=== PATIENT | female | born 1955 | race Caucasian/White ===

== ENCOUNTER 2018-03-09 15:45 | Outpatient (RCR) | payer OTHER, SELFPAY ==
[2018-02-16 13:09] VITALS: BP 148/66; PULSE 91; RESP 16; TEMP 36.4; BMI 35.4
[2018-02-16 15:51] LABS: Absolute Lymphocyte Count 2.62 X10^3/ul (0.83-4.51); Absolute Neutrophil Count 4.6 X10^3/uL (2.0-7.7); Basophil# 0.04 X10^3/uL; Basophil% 0.5 % (0-1); Eosinophils% 3.5 % (0-5); Hematocrit 42.4 % (37-47); Hemoglobin 13.9 g/dl (12.0-15.0); Lymphocyte # 2.62 X10^3/ul (4.0); Lymphocyte % 30.7 % (19-41); Mean Corp Hgb Conc 32.8 g/gl (32-36); Mean Corpuscular Volume 94.4 fL (81-99); Mean Platelet Vol. 12.3 fl (6.2-12.0); Monocyte# 0.97 X10^3/uL; Monocyte% 11.4 % (0-10); Neutrophil % 53.8 % (47-70); Platelet Count 187 K/mm3 (150-450); RBC Distribution Width CV 12.9 % (11.6-14.6); RBC Distribution Width SD 44.4 fl (35.1-43.9); Red Blood Count 4.49 M/mm3 (4.2-5.4); White Blood Count 8.5 K/mm3 (4.4-11.0)
[2018-02-16 15:52] LABS: POSITIVE COUNT NO; POSITIVE DIFFERENTIAL NO; POSITIVE MORPHOLOGY NO
[2018-02-16 16:00] LABS: Erythrocyte Sedimentation Rate 28 mm/hr (0-30)
[2018-02-16 16:11] LABS: AST(SGOT) 44 U/L (15-37); Alanine Aminotransfer ALT/SGPT 41 U/L (13-56); Albumin, Serum 3.9 g/dL (3.2-5.0); Alkaline Phosphatase 115 U/L (45-117); Anion Gap 8 (5-15); BUN 16 mg/dL (7-18); BUN/Creat Ratio 20.6 RATIO (10-20); Chloride 106 mmol/L (98-107); Creatinine, Serum 0.78 mg/dL (0.55-1.02); EST Glomerular Filtration Rate 79 mL/min (>60); Est Glom Filt Rate - Afr Amer 96 mL/min (>60); Estimated Creatinine Clearance 60.27 ml/min; Globulin 3.9 g/dL (2.2-4.2); Glucose 82 mg/dL (74-106); Potassium 4.2 mmol/L (3.5-5.1); Prealbumin 21.2 mg/dL (20.0-40.0); Protein, Total 7.8 g/dL (6.4-8.2); Sodium Level 144 mmol/L (136-145)
--- NOTE | 2018-02-16 17:17 | PCM.WC.HP ---
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 Status: Acute Current Visit: Yes Code(s): L97.922 - Non-pressure chronic ulcer of unspecified part of left lower leg with fat layer exposed Comment: x 3 (2) Decreased dorsalis pedis pulse Status: Acute Current Visit: Yes Code(s): R09.89 - Other specified symptoms and signs involving the circulatory and respiratory systems (3) Bilateral lower extremity edema Status: Acute Current Visit: Yes Code(s): R60.0 - Localized edema (4) Hypertension Status: Chronic Current Visit: Yes Code(s): I10 - Essential (primary) hypertension (5) Depression Status: Acute Current Visit: Yes Code(s): F32.9 - Major depressive disorder, single episode, unspecified (6) Hyperlipidemia Status: Acute Current Visit: Yes Code(s): E78.5 - Hyperlipidemia, unspecified History of Present Illness Date of Service: 02/16/18 Chief Complaint: Nonhealing ulcers to the left lower extremity times 3 months History of Wound: This is a 62-year-old white female who presents to the wound healing center today with complaints of 3 lower extremity ulcers times 3 months. She states that these ulcerations occurred when she hit her left lower extremity on a laundry cart 3 months ago. She states that she typically wears compression stockings and that for wound care she has been using Aquacel extra that she ordered online. She denies any signs of infection at this time, though she does state that the ulcerations are tender and draining serosanguineous fluid. She denies any fever, chills, nausea, vomiting, shortness of breath, chest pain or pressure, syncope or presyncopal episodes. She denies any other aggravating or relieving factors. She has been seen in 2013 here for nonhealing wounds of the lower extremity as well. Past Medical History Past Medical History: Chronic Problems Hypertension (Chronic) Smoking Status: Never smoker Review of Systems Constitutional: Denies: Chills, Fever, Weight Change Eyes: Denies: Pain, Vision Change HEENT: Denies: Difficulty Hearing, Difficulty Swallowing, Sinus Congestion Cardiovascular: Denies: Chest Pain, Palpitations Respiratory: Denies: Cough, Shortness of Breath Gastrointestinal: Denies: Diarrhea, Nausea, Vomiting Genitourinary: Denies: Dysuria, Hematuria Skin: Reports: Wounds - See HPI Endocrine: Denies: Heat/ Cold Intolerance, Polydipsia, Polyuria Hematologic/ Lymphatic: Denies: Easy Bruising, Easy Bleeding - Physical Exam Vital Signs Temp Pulse Resp BP 97.5 F L 91 16 148/66 H 02/16/18 13:09 02/16/18 13:09 02/16/18 13:09 02/16/18 13:09 General: Alert, Oriented x3, Cooperative, No apparent distress HEENT: PERRLA, EOMI Oral: Moist Mucosa Lungs: Clear to auscultation, Normal air movement Cardiovascular: Regular rate, Regular Rhythm Abdomen: Soft, Obese Extremities: No clubbing, No cyanosis, Diminished Peripheral Pulses - Diminished dorsal pedis pulses bilaterally, Edema - Generalized 1+ nonpitting edema bilateral lower extremities Skin: Ulcer/ Wound - Nonhealing ulcers present left lower extremity anterior, posterior, and lateral with adherent slough present, slightly erythematous wound edges, no streaking or purulent exudate. Negative Homans sign bilaterally. Wound Measurements and Assessment WC - Nurse 1 - General Ulcer Measurement Start: 02/16/18 13:09 Freq: Status: Active Protocol: Activity Type Activity Date Activity User E-Sign Co-Sign Detail Recorded Client Recorded Date Recorded By Document 02/16/18 13:09 [id number] 02/16/18 13:26 02/16/18 13:09 Wound Center Nurse 1 [Ulcer Assessment] #3 left anterior jain -Combined with other wound No -Current Size (cm) - Length 1.5 -Current Size (cm) - Width 1.9 -Current Size (cm) - Depth 0.1 -Total Square Cm 2.85 -Date of Last Picture (Recall this 02/16/18 field) -Photo Taken Yes -Epithelialization None Present -Tunneling No -Undermining/Tunneling No -Circular Undermining No -Exudate Amt Medium (34-66%) -Exudate Type Serosanguineous -Wound Margin Distinct, Outline Attached -Granulation Amt Medium (34-66%) -Granulation Quality Pale Red -Slough/Fibrin Yes -Necrosis Amt None Present (0 %) -Necrotic Tissue Type Adherent Slough -Structure Exposed None/Limited to Skin Breakdown -Texture (Patricia-wound Skin Appearance) No Abnormality Assessed -Moisture (Patricia-wound Skin Appearance No Abnormality ) Assessed -Color (Patricia-wound Skin Appearance) No Abnormality Assessed -Temperature (Patricia-wound Skin No Abnormality Appearance) (Pt Warm) -Tenderness on Palpation (Patricia-wound No Skin Appearance) -Ulcer Cleansing Rinsed/ Irrigated with Saline -Foul Odor after Cleansing No -Anesthetic Used 4% Lidocaine Solution #2 left posterior le -Combined with other wound No -Current Size (cm) - Length 1 -Current Size (cm) - Width 1.2 -Current Size (cm) - Depth 0.3 -Total Square Cm 1.2 -Date of Last Picture (Recall this 02/16/18 field) -Photo Taken Yes -Epithelialization None Present -Tunneling No -Undermining/Tunneling No -Circular Undermining No -Exudate Amt Medium (34-66%) -Exudate Type Serosanguineous -Wound Margin Distinct, Outline Attached -Granulation Amt Medium (34-66%) -Granulation Quality Pale -Slough/Fibrin Yes -Necrosis Amt None Present (0 %) -Necrotic Tissue Type Adherent Slough -Structure Exposed None/Limited to Skin Breakdown -Texture (Patricia-wound Skin Appearance) No Abnormality Assessed -Moisture (Patricia-wound Skin Appearance No Abnormality ) Assessed -Color (Patricia-wound Skin Appearance) No Abnormality Assessed -Temperature (Patricia-wound Skin No Abnormality Appearance) (Pt Warm) -Tenderness on Palpation (Patricia-wound Yes Skin Appearance) -Ulcer Cleansing Rinsed/ Irrigated with Saline -Foul Odor after Cleansing No -Anesthetic Used 4% Lidocaine Solution #1 left lateralle -Combined with other wound No -Current Size (cm) - Length 1.9 -Current Size (cm) - Width 1.3 -Current Size (cm) - Depth 0.1 -Total Square Cm 2.47 -Date of Last Picture (Recall this 02/16/18 field) -Photo Taken Yes -Epithelialization None Present -Tunneling No -Undermining/Tunneling No -Circular Undermining No -Exudate Amt Medium (34-66%) -Exudate Type Serosanguineous -Wound Margin Fibrotic Scar, Thickened Scar -Granulation Amt Medium (34-66%) -Granulation Quality Pale -Slough/Fibrin Yes -Necrosis Amt Medium (34-66%) -Necrotic Tissue Type Adherent Slough -Structure Exposed None/Limited to Skin Breakdown -Texture (Patricia-wound Skin Appearance) No Abnormality Assessed -Moisture (Aptricia-wound Skin Appearance No Abnormality ) Assessed -Color (Patricia-wound Skin Appearance) No Abnormality Assessed -Temperature (Patricia-wound Skin No Abnormality Appearance) (Pt Warm) -Tenderness on Palpation (Patricia-wound Yes Skin Appearance) -Ulcer Cleansing Rinsed/ Irrigated with Saline -Foul Odor after Cleansing No -Anesthetic Used 4% Lidocaine Solution [Edema Assessment] -Lower Limb Edema Present Yes -Right Calf (cm) 42 -Right Ankle (cm) 21.5 -Left Calf (cm) 43 -Left Ankle (cm) 26.5 WC - Nurse 2 - General Ulcer CM Notes Start: 02/16/18 13:09 Freq: Status: Active Protocol: Activity Type Activity Date Activity User E-Sign Co-Sign Detail Recorded Client Recorded Date Recorded By Document 02/16/18 14:12 [id number] 02/16/18 14:18 02/16/18 14:12 Wound Center Nurse 2 [Procedure/Treatment] #3 left anterior jain -Time 14:12 -Correct Patient Yes -Correct Side, Site, Position Yes -Correct Procedure Yes -Procedure Performed Yes -Type of Procedure Debridement -Clinical Debridement Subcutaneous -Post Debridement Size (cm) - Length 2.3 -Post Debridement Size (cm) - Width 1.9 -Post Debridement Size (cm) - Depth 0.1 -Total Square Cm 4.37 -Wound/Ulcer Outcome Not Healed -Ulcer Cleansing Rinsed/ Irrigated with Saline -Foul Odor after Cleansing No -Bioengineered Tissue No -Topical Lidocaine (%) 5 -Bleeding Controlled with Pressure -Treatment Response Procedure Tolerated Well #2 left posterior le -Time 14:13 -Correct Patient Yes -Correct Side, Site, Position Yes -Correct Procedure Yes -Procedure Performed Yes -Type of Procedure Debridement -Clinical Debridement Subcutaneous -Post Debridement Size (cm) - Length 1.2 -Post Debridement Size (cm) - Width 1.2 -Post Debridement Size (cm) - Depth 0.4 -Total Square Cm 1.44 -Wound/Ulcer Outcome Not Healed -Ulcer Cleansing Rinsed/ Irrigated with Saline -Foul Odor after Cleansing No -Bioengineered Tissue No -Topical Lidocaine (%) 5 -Bleeding Controlled with Pressure -Treatment Response Procedure Tolerated Well #1 left lateralle -Time 14:13 -Correct Patient Yes -Correct Side, Site, Position Yes -Correct Procedure Yes -Procedure Performed Yes -Type of Procedure Debridement -Clinical Debridement Subcutaneous -Post Debridement Size (cm) - Length 2.3 -Post Debridement Size (cm) - Width 1.9 -Post Debridement Size (cm) - Depth 0.1 -Total Square Cm 4.37 -Wound/Ulcer Outcome Not Healed -Ulcer Cleansing Rinsed/ Irrigated with Saline -Foul Odor after Cleansing No -Bioengineered Tissue No -Topical Lidocaine (%) 5 -Bleeding Controlled with Pressure -Treatment Response Procedure Tolerated Well [See Physician Procedure note for Specifics] Pain Scale: 0-10 Numeric [Pain] -Is Patient Pain Free? Yes Musculoskeletal: No Muscle Wasting Neurological: Neuro grossly intact Psych/Mental Status: Normal Affect, Appropriate, Alert and oriented to time, place, person, mood and affect Debridement Note Post-Debridement Measurements/Treatment WC - Nurse 2 - General Ulcer CM Notes Start: 02/16/18 13:09 Freq: Status: Active Protocol: Activity Type Activity Date Activity User E-Sign Co-Sign Detail Recorded Client Recorded Date Recorded By Document 02/16/18 14:12 [id number] 02/16/18 14:18 02/16/18 14:12 Wound Center Nurse 2 #3 left anterior jain -Time 14:12 -Correct Patient Yes -Correct Side, Site, Position Yes -Correct Procedure Yes -Procedure Performed Yes -Type of Procedure Debridement -Clinical Debridement Subcutaneous -Post Debridement Size (cm) - Length 2.3 -Post Debridement Size (cm) - Width 1.9 -Post Debridement Size (cm) - Depth 0.1 -Total Square Cm 4.37 -Wound/Ulcer Outcome Not Healed -Ulcer Cleansing Rinsed/ Irrigated with Saline -Foul Odor after Cleansing No -Bioengineered Tissue No -Topical Lidocaine (%) 5 -Bleeding Controlled with Pressure -Treatment Response Procedure Tolerated Well #2 left posterior le -Time 14:13 -Correct Patient Yes -Correct Side, Site, Position Yes -Correct Procedure Yes -Procedure Performed Yes -Type of Procedure Debridement -Clinical Debridement Subcutaneous -Post Debridement Size (cm) - Length 1.2 -Post Debridement Size (cm) - Width 1.2 -Post Debridement Size (cm) - Depth 0.4 -Total Square Cm 1.44 -Wound/Ulcer Outcome Not Healed -Ulcer Cleansing Rinsed/ Irrigated with Saline -Foul Odor after Cleansing No -Bioengineered Tissue No -Topical Lidocaine (%) 5 -Bleeding Controlled with Pressure -Treatment Response Procedure Tolerated Well #1 left lateralle -Time 14:13 -Correct Patient Yes -Correct Side, Site, Position Yes -Correct Procedure Yes -Procedure Performed Yes -Type of Procedure Debridement -Clinical Debridement Subcutaneous -Post Debridement Size (cm) - Length 2.3 -Post Debridement Size (cm) - Width 1.9 -Post Debridement Size (cm) - Depth 0.1 -Total Square Cm 4.37 -Wound/Ulcer Outcome Not Healed -Ulcer Cleansing Rinsed/ Irrigated with Saline -Foul Odor after Cleansing No -Bioengineered Tissue No -Topical Lidocaine (%) 5 -Bleeding Controlled with Pressure -Treatment Response Procedure Tolerated Well Pain Scale: 0-10 Numeric Is Patient Pain Free? Yes Wound debrided: Left lower extremity nonhealing ulcer anterior, posterior, and lateral Laterality: Left Type of Debridement: Excisional debridement Anesthesia Used: 5% Lidocaine Gel Depth: in the subcutaneous layer Percentage of wound debrided: 100 Instrument Used: 7mm curette Tissue Removed: Slough and devitalized tissue Severity: Fat Layer Exposed Amount of bleeding with debridement: Mild Bleeding Controlled with: Pressure Patient did not tolerate procedure well Assessment/Plan Active Problems Decreased dorsalis pedis pulse (Acute) Bilateral lower extremity edema (Acute) Hypertension (Chronic) Depression (Acute) Hyperlipidemia (Acute) Nonhealing ulcer of left lower extremity with fat layer exposed (Acute) x 3 Assessment: Nonhealing ulcers to the left lower extremity, posterior, anterior, and lateral Plan: The patient was seen and examined at the wound center today and was updated on the plan of care. A subcutaneous debridement was performed today. The patient tolerated the procedure poorly due to pain. The patients wound care will consist of: Applying Santyl to the lateral and posterior left lower extremity ulcers and applying Elizabet to the anterior lower extremity left ulcer, she may continue with her compression stockings. Wound cultures were collected. Baseline bloodwork ordered. Vascular studies ordered. Patient educated on the importance of diet on wound healing and instructed to increase protein and vitamin C intake. Patient instructed to take Tylenol prior to her next debridement. Discussed red flag symptoms of cellulitis and infection that require urgent medical attention. Patient verbalized understanding. Patient will follow up at wound healing center in one week or sooner if needed. This note was generated with [employer] software. It may contain incorrect words, spelling, and punctuation that were not noted in checking the note before signing. Code Visit Office Visits / Consults: [id number] OV L4 New [id number]: [id number] Zena subq tissue 20 sq cm/<
[2018-02-23 15:52] VITALS: BP 146/89; PULSE 99; RESP 16; TEMP 36.9; BMI 35.4
--- NOTE | 2018-02-27 08:51 | PN.PCM_ITS ---
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 Status: Acute Code(s): L97.922 - Non-pressure chronic ulcer of unspecified part of left lower leg with fat layer exposed Comment: x 3 (2) Decreased dorsalis pedis pulse Status: Acute Code(s): R09.89 - Other specified symptoms and signs involving the circulatory and respiratory systems (3) Bilateral lower extremity edema Status: Acute Code(s): R60.0 - Localized edema (4) Hypertension Status: Chronic Code(s): I10 - Essential (primary) hypertension (5) Depression Status: Acute Code(s): F32.9 - Major depressive disorder, single episode, unspecified (6) Hyperlipidemia Status: Acute Code(s): E78.5 - Hyperlipidemia, unspecified Type of Wound Date of Service: 02/23/18 Chief Complaint: Nonhealing ulcers to the left lower extremity times 3 months History of Wound: This is a 62-year-old white female who presents to the wound healing center today with complaints of 3 lower extremity ulcers times 3 months. She states that these ulcerations occurred when she hit her left lower extremity on a laundry cart 3 months ago. She states that she typically wears compression stockings and that for wound care she has been using Aquacel extra that she ordered online. She denies any signs of infection at this time, though she does state that the ulcerations are tender and draining serosanguineous fluid. She denies any fever, chills, nausea, vomiting, shortness of breath, chest pain or pressure, syncope or presyncopal episodes. She denies any other aggravating or relieving factors. She has been seen in 2013 here for nonhealing wounds of the lower extremity as well. Progress of Wound: Stable, patient's wound culture showed MRSA and patient was called in a 10-day course of doxycycline earlier this week. She has taken one full day of this and is tolerating well. She does state that some of her ulceration pain has improved since starting the antibiotic denies any purulent drainage has been utilizing the Santyl and Elizabet well. - Physical Exam Vital Signs Temp Pulse Resp BP 98.4 F 99 16 146/89 H 02/23/18 15:52 02/23/18 15:52 02/23/18 15:52 02/23/18 15:52 General: Alert, Oriented x3, Cooperative, No apparent distress HEENT: Atraumatic Oral: Moist Mucosa Lungs: Clear to auscultation Cardiovascular: Regular rate Abdomen: Obese Extremities: No clubbing, No cyanosis, Diminished Peripheral Pulses, Edema - Generalized bilateral lower extremity edema Skin: Ulcer/ Wound - Left lower extremity anterior posterior and lateral ulcer with adherent slough and devitalized tissue no signs of infection at this time, slightly erythematous wound edges. Musculoskeletal: No Tenderness to Palpation of Joints or Extremities, No Muscle Wasting Neurological: Neuro grossly intact Psych/Mental Status: Normal Affect, Appropriate, Alert and oriented to time, place, person, mood and affect Debridement Note Post-Debridement Measurements/Treatment WC - Nurse 2 - General Ulcer CM Notes Start: 02/16/18 13:09 Freq: Status: Active Protocol: Activity Type Activity Date Activity User E-Sign Co-Sign Detail Recorded Client Recorded Date Recorded By Document 02/16/18 14:12 TM [id number] 02/16/18 14:18 TM Document 02/23/18 17:17 TM [id number] 02/23/18 17:19 TM 02/16/18 02/23/18 14:12 17:17 Wound Center Nurse 2 #4 left anterior jain -Time 14:12 17:18 -Correct Patient Yes Yes -Correct Side, Site, Position Yes Yes -Correct Procedure Yes Yes -Procedure Performed Yes Yes -Type of Procedure Debridement Debridement -Clinical Debridement Subcutaneous Subcutaneous -Post Debridement Size (cm) - Length 2.3 2.3 -Post Debridement Size (cm) - Width 1.9 2.0 -Post Debridement Size (cm) - Depth 0.1 0.1 -Total Square Cm 4.37 4.60 -Wound/Ulcer Outcome Not Healed Not Healed -Ulcer Cleansing Rinsed/ Rinsed/ Irrigated with Irrigated with Saline Saline -Foul Odor after Cleansing No No -Bioengineered Tissue No No -Topical Lidocaine (%) 5 4 -Bleeding Controlled with Pressure Pressure -Treatment Response Procedure Procedure Tolerated Well Tolerated Well #3 left posterior leg -Time 14:13 17:18 -Correct Patient Yes Yes -Correct Side, Site, Position Yes Yes -Correct Procedure Yes Yes -Procedure Performed Yes Yes -Type of Procedure Debridement Debridement -Clinical Debridement Subcutaneous Subcutaneous -Post Debridement Size (cm) - Length 1.2 1.2 -Post Debridement Size (cm) - Width 1.2 1.2 -Post Debridement Size (cm) - Depth 0.4 0.5 -Total Square Cm 1.44 1.44 -Wound/Ulcer Outcome Not Healed Not Healed -Ulcer Cleansing Rinsed/ Rinsed/ Irrigated with Irrigated with Saline Saline -Foul Odor after Cleansing No No -Bioengineered Tissue No No -Topical Lidocaine (%) 5 4 -Bleeding Controlled with Pressure Pressure -Treatment Response Procedure Procedure Tolerated Well Tolerated Well #2 left lateral leg -Time 14:13 17:18 -Correct Patient Yes Yes -Correct Side, Site, Position Yes Yes -Correct Procedure Yes Yes -Procedure Performed Yes Yes -Type of Procedure Debridement Debridement -Clinical Debridement Subcutaneous Subcutaneous -Post Debridement Size (cm) - Length 2.3 1.8 -Post Debridement Size (cm) - Width 1.9 2.3 -Post Debridement Size (cm) - Depth 0.1 0.2 -Total Square Cm 4.37 4.14 -Wound/Ulcer Outcome Not Healed Not Healed -Ulcer Cleansing Rinsed/ Rinsed/ Irrigated with Irrigated with Saline Saline -Foul Odor after Cleansing No No -Bioengineered Tissue No No -Topical Lidocaine (%) 5 4 -Bleeding Controlled with Pressure Pressure -Treatment Response Procedure Procedure Tolerated Well Tolerated Well Pain Scale: 0-10 Numeric Is Patient Pain Free? Yes Yes Wound debrided: Left anterior posterior and lateral ulcer Laterality: Left Type of Debridement: Excisional debridement Anesthesia Used: 5% Lidocaine Gel Depth: in the subcutaneous layer Percentage of wound debrided: 100 Instrument Used: 5mm curette Tissue Removed: Slough and devitalized tissue Severity: Fat Layer Exposed Amount of bleeding with debridement: Mild Bleeding Controlled with: Pressure Patient tolerated procedure well Assessment/Plan Assessment: Nonhealing ulcers to the left lower extremity, posterior, anterior, and lateral Plan: The patient was seen and examined at the wound center today and was updated on the plan of care. A subcutaneous debridement was performed today. The patient tolerated the procedure well. The patients wound care will consist of: Applying Santyl to the lateral and posterior left lower extremity ulcers and applying Elizabet to the anterior lower extremity left ulcer, she may continue with her compression stockings. Wound cultures were collected prior and showed MRSA and started on a course of doxy. Baseline bloodwork essentially within normal limits. Vascular studies pending. Patient educated on the importance of diet on wound healing and instructed to increase protein and vitamin C intake. Patient instructed to take Tylenol prior to her next debridement. Discussed red flag symptoms of cellulitis and infection that require urgent medical attention. Patient verbalized understanding. Patient will follow up at wound healing center in one week or sooner if needed. This note was generated with [employer] dictation software. It may contain incorrect words, spelling, and punctuation that were not noted in checking the note before signing. Code Visit [id number]-113xx: [id number] Zena subq tissue 20 sq cm/<
--- NOTE | 2018-03-09 14:02 | LEAS ---
Arterial Study - Arterial Study Arterial Study: This is a 62-year-old female who presents with a history of peripheral arterial occlusive disease. The patient is brought to the noninvasive vascular laboratory at this time for the purpose of bilateral noninvasive lower extremity arterial assessment. Doppler signal assessment was used to evaluate the pulses at ankle level bilaterally. The posterior tibial and dorsalis pedis pulses were triphasic bilaterally. Segmental limb pressures were obtained bilaterally. The right ankle pressure, as determined by posterior tibial pulse, was measured at 176 mmHg. The right ankle pressure, as determined by dorsalis pedis pulse, was measured at 159 mmHg. The right digital pressure was measured at 107 mmHg. The left ankle pressure, as determined by posterior tibial pulse, was measured at 167 mmHg. The left ankle pressure, as determined by dorsalis pedis pulse, was measured at 162 mmHg. The left digital pressure was measured at 100 mmHg. Pulse?volume recordings were obtained bilaterally and segmentally. Waveform amplitudes appeared to be satisfactory at all levels bilaterally, including low thigh, calf, ankle, and digital levels. Resting ankle?brachial indices were calculated bilaterally. The resting right ankle?brachial index was calculated to be 1.21. The resting left ankle?brachial index was calculated to be 1.14. Digital?brachial indices were calculated bilaterally. The right digital-brachial index was calculated to be 0.73. The left digital-brachial index was calculated to be 0.68. Impression: Based upon the findings of this resting noninvasive lower extremity arterial study, arterial perfusion to ankle level appears to be normal bilaterally. Triphasic waveforms were noted at ankle level bilaterally. Resting ankle?brachial indices were bilaterally normal. The right digital-brachial index is normal, suggesting relatively normal flow at digital level in the right lower extremity. The left digital-brachial index is mildly diminished, suggesting the presence of mild, distal, small?vessel arterial occlusive disease in the left lower extremity. Clinical correlation is advised.
--- NOTE | 2018-03-09 14:08 | LEAS_ITS ---
Arterial Study - Arterial Study Arterial Study: This is a 62-year-old female who presents with a history of peripheral arterial occlusive disease. The patient is brought to the noninvasive vascular laboratory at this time for the purpose of bilateral noninvasive lower extremity arterial assessment. Doppler signal assessment was used to evaluate the pulses at ankle level bilaterally. The posterior tibial and dorsalis pedis pulses were triphasic bilaterally. Segmental limb pressures were obtained bilaterally. The right ankle pressure, as determined by posterior tibial pulse, was measured at 176 mmHg. The right ankle pressure, as determined by dorsalis pedis pulse, was measured at 159 mmHg. The right digital pressure was measured at 107 mmHg. The left ankle pressure, as determined by posterior tibial pulse, was measured at 167 mmHg. The left ankle pressure, as determined by dorsalis pedis pulse, was measured at 162 mmHg. The left digital pressure was measured at 100 mmHg. Pulse?volume recordings were obtained bilaterally and segmentally. Waveform amplitudes appeared to be satisfactory at all levels bilaterally, including low thigh, calf, ankle, and digital levels. Resting ankle?brachial indices were calculated bilaterally. The resting right ankle?brachial index was calculated to be 1.21. The resting left ankle?brachial index was calculated to be 1.14. Digital?brachial indices were calculated bilaterally. The right digital- brachial index was calculated to be 0.73. The left digital-brachial index was calculated to be 0.68. Impression: Based upon the findings of this resting noninvasive lower extremity arterial study, arterial perfusion to ankle level appears to be normal bilate rally. Triphasic waveforms were noted at ankle level bilaterally. Resting ankle?brachial indices were bilaterally normal. The right digital-brachial index is normal, suggesting relatively normal flow at digital level in the right lower extremity. The left digital-brachial index is mildly diminished, suggesting the presence of mild, distal, small?vessel arterial occlusive disease in the left lower extremity. Clinical correlation is advised.
[2018-03-09 15:48] VITALS: BP 146/62; PULSE 85; RESP 18; TEMP 36.4; BMI 35.4
--- NOTE | 2018-03-09 19:30 | PCM.WC.PN ---
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 Status: Acute Code(s): L97.922 - Non-pressure chronic ulcer of unspecified part of left lower leg with fat layer exposed Comment: x 3 (2) Decreased dorsalis pedis pulse Status: Acute Code(s): R09.89 - Other specified symptoms and signs involving the circulatory and respiratory systems (3) Bilateral lower extremity edema Status: Acute Code(s): R60.0 - Localized edema (4) Hypertension Status: Chronic Code(s): I10 - Essential (primary) hypertension (5) Depression Status: Acute Code(s): F32.9 - Major depressive disorder, single episode, unspecified (6) Hyperlipidemia Status: Acute Code(s): E78.5 - Hyperlipidemia, unspecified Type of Wound Date of Service: 03/09/18 Chief Complaint: Nonhealing ulcers to the left lower extremity times 3 months History of Wound: This is a 62-year-old white female who presents to the wound healing center today with complaints of 3 left lower extremity ulcers times 3 months. She states that these ulcerations occurred when she hit her left lower extremity on a laundry cart 3 months ago. She states that she typically wears compression stockings and that for wound care she has been using Aquacel extra that she ordered online. She denies any signs of infection at this time, though she does state that the ulcerations are tender and draining serosanguineous fluid. She denies any fever, chills, nausea, vomiting, shortness of breath, chest pain or pressure, syncope or presyncopal episodes. She denies any other aggravating or relieving factors. She has been seen in 2013 here for nonhealing wounds of the lower extremity as well. Progress of Wound: improving, patient's wound culture showed MRSA and patient was called in a 10-day course of doxycycline earlier this week, pt feels like the redness and pain have improved but some residual erythema still present, will call in 4 more days of doxy, which she has tolerated well. She denies any purulent drainage has been utilizing the Santyl and Elizabet well. - Physical Exam Vital Signs Temp Pulse Resp BP 97.6 F L 85 18 146/62 H 03/09/18 15:48 03/09/18 15:48 03/09/18 15:48 03/09/18 15:48 General: Alert, Oriented x3, Cooperative, No apparent distress HEENT: Atraumatic Oral: Moist Mucosa Lungs: Clear to auscultation, Normal air movement Cardiovascular: Regular rate Abdomen: Soft Extremities: No clubbing, No cyanosis, Diminished Peripheral Pulses, Edema - generalized BLLE edema Skin: Ulcer/ Wound - Anterior posterior on the lateral left lower extremity ulcerations with adherent slough, less than 1 cm of erythema extending from the wound bed, serial sanguinous discharge present, moderate. 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 Neurological: Neuro grossly intact Psych/Mental Status: Normal Affect, Appropriate, Alert and oriented to time, place, person, mood and affect Debridement Note Post-Debridement Measurements/Treatment WC - Nurse 2 - General Ulcer CM Notes Start: 02/16/18 13:09 Freq: Status: Active Protocol: Activity Type Activity Date Activity User E-Sign Co-Sign Detail Recorded Client Recorded Date Recorded By Document 02/16/18 14:12 [id number] 02/16/18 14:18 TM Document 02/23/18 17:17 [id number] 02/23/18 17:19 TM Document 03/09/18 16:06 [id number] 03/09/18 16:11 02/16/18 02/23/18 03/09/18 14:12 17:17 16:06 Wound Center Nurse 2 #4 left anterior jain -Time 14:12 17:18 16:07 -Correct Patient Yes Yes Yes -Correct Side, Site, Position Yes Yes Yes -Correct Procedure Yes Yes Yes -Procedure Performed Yes Yes Yes -Type of Procedure Debridement Debridement Debridement -Clinical Debridement Subcutaneous Subcutaneous Subcutaneous -Post Debridement Size (cm) - Length 2.3 2.3 1.9 -Post Debridement Size (cm) - Width 1.9 2.0 1.4 -Post Debridement Size (cm) - Depth 0.1 0.1 0.1 -Total Square Cm 4.37 4.60 2.66 -Wound/Ulcer Outcome Not Healed Not Healed Not Healed -Ulcer Cleansing Rinsed/ Rinsed/ Not Cleansed Irrigated with Irrigated with Saline Saline -Foul Odor after Cleansing No No No -Bioengineered Tissue No No No -Topical Lidocaine (%) 5 4 -Bleeding Controlled with Pressure Pressure Pressure -Offloading No -Treatment Response Procedure Procedure Procedure Tolerated Well Tolerated Well Tolerated Well #3 left posterior leg -Time 14:13 17:18 16:08 -Correct Patient Yes Yes Yes -Correct Side, Site, Position Yes Yes Yes -Correct Procedure Yes Yes Yes -Procedure Performed Yes Yes Yes -Type of Procedure Debridement Debridement Debridement -Clinical Debridement Subcutaneous Subcutaneous Subcutaneous -Post Debridement Size (cm) - Length 1.2 1.2 0.9 -Post Debridement Size (cm) - Width 1.2 1.2 0.8 -Post Debridement Size (cm) - Depth 0.4 0.5 0.3 -Total Square Cm 1.44 1.44 0.72 -Wound/Ulcer Outcome Not Healed Not Healed Not Healed -Ulcer Cleansing Rinsed/ Rinsed/ Not Cleansed Irrigated with Irrigated with Saline Saline -Foul Odor after Cleansing No No No -Bioengineered Tissue No No No -Topical Lidocaine (%) 5 4 -Bleeding Controlled with Pressure Pressure Pressure -Offloading No -Treatment Response Procedure Procedure Procedure Tolerated Well Tolerated Well Tolerated Well #2 left lateral leg -Time 14:13 17:18 16:09 -Correct Patient Yes Yes Yes -Correct Side, Site, Position Yes Yes Yes -Correct Procedure Yes Yes Yes -Procedure Performed Yes Yes Yes -Type of Procedure Debridement Debridement Debridement -Clinical Debridement Subcutaneous Subcutaneous Subcutaneous -Post Debridement Size (cm) - Length 2.3 1.8 1.5 -Post Debridement Size (cm) - Width 1.9 2.3 1.9 -Post Debridement Size (cm) - Depth 0.1 0.2 0.1 -Total Square Cm 4.37 4.14 2.85 -Wound/Ulcer Outcome Not Healed Not Healed Not Healed -Ulcer Cleansing Rinsed/ Rinsed/ Not Cleansed Irrigated with Irrigated with Saline Saline -Foul Odor after Cleansing No No No -Bioengineered Tissue No No No -Topical Lidocaine (%) 5 4 -Bleeding Controlled with Pressure Pressure Pressure -Offloading No -Treatment Response Procedure Procedure Procedure Tolerated Well Tolerated Well Tolerated Well Pain Scale: 0-10 Numeric Is Patient Pain Free? Yes Yes Yes Wound debrided: Left anterior, posterior, and lateral venous leg ulcer Laterality: Left Type of Debridement: Excisional debridement Anesthesia Used: 5% Lidocaine Gel Depth: in the subcutaneous layer Percentage of wound debrided: 100 Instrument Used: 7mm curette Tissue Removed: Slough and devitalized tissue Severity: Fat Layer Exposed Amount of bleeding with debridement: Mild Bleeding Controlled with: Pressure Patient tolerated procedure well Assessment/Plan Assessment: Nonhealing ulcers to the left lower extremity, posterior, anterior, and lateral Plan: The patient was seen and examined at the wound center today and was updated on the plan of care. A subcutaneous debridement was performed today. The patient tolerated the procedure well. The patients wound care will consist of: Applying Elizabet to the lateral and posterior left lower extremity ulcers and applying hydrogel to the anterior lower extremity left ulcer, she may continue with her compression stockings. Wound cultures were collected prior and showed MRSA and started on a course of doxy, 4 additional days added. Baseline bloodwork essentially within normal limits. Vascular studies showed venous incompetence is in the left and right lower extremities and right GERARDO was 1.21 and left GERARDO was 1.14 with left digital brachial index mildly diminished suggesting the presence of mild distal small vessel arterial occlusive disease. Patient referred to vascular Dr. Hadley. Patient educated on the importance of diet on wound healing and instructed to increase protein and vitamin C intake. Patient instructed to take Tylenol prior to her next debridement. Discussed red flag symptoms of cellulitis and infection that require urgent medical attention. Patient verbalized understanding. Patient will follow up at wound healing center in one week or sooner if needed. This note was generated with [employer] dictation software. It may contain incorrect words, spelling, and punctuation that were not noted in checking the note before signing. Code Visit 111xxx-113xx: [id number] Zena subq tissue 20 sq cm/<
--- NOTE | 2018-03-15 13:35 | PN.PCM_ITS ---
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 Status: Acute Code(s): L97.922 - Non-pressure chronic ulcer of unspecified part of left lower leg with fat layer exposed Comment: x 3 (2) Decreased dorsalis pedis pulse Status: Acute Code(s): R09.89 - Other specified symptoms and signs involving the circulatory and respiratory systems (3) Bilateral lower extremity edema Status: Acute Code(s): R60.0 - Localized edema (4) Hypertension Status: Chronic Code(s): I10 - Essential (primary) hypertension (5) Depression Status: Acute Code(s): F32.9 - Major depressive disorder, single episode, unspecified (6) Hyperlipidemia Status: Acute Code(s): E78.5 - Hyperlipidemia, unspecified Type of Wound Date of Service: 03/09/18 Chief Complaint: Nonhealing ulcers to the left lower extremity times 3 months History of Wound: This is a 62-year-old white female who presents to the wound healing center today with complaints of 3 left lower extremity ulcers times 3 months. She states that these ulcerations occurred when she hit her left lower extremity on a laundry cart 3 months ago. She states that she typically wears compression stockings and that for wound care she has been using Aquacel extra that she ordered online. She denies any signs of infection at this time, though she does state that the ulcerations are tender and draining serosanguineous fluid. She denies any fever, chills, nausea, vomiting, shortness of breath, chest pain or pressure, syncope or presyncopal episodes. She denies any other aggravating or relieving factors. She has been seen in 2013 here for nonhealing wounds of the lower extremity as well. Progress of Wound: improving, patient's wound culture showed MRSA and patient was called in a 10-day course of doxycycline earlier this week, pt feels like the redness and pain have improved but some residual erythema still present, will call in 4 more days of doxy, which she has tolerated well. She denies any purulent drainage has been utilizing the Santyl and Elizabet well. - Physical Exam Vital Signs Temp Pulse Resp BP 97.6 F L 85 18 146/62 H 03/09/18 15:48 03/09/18 15:48 03/09/18 15:48 03/09/18 15:48 General: Alert, Oriented x3, Cooperative, No apparent distress HEENT: Atraumatic Oral: Moist Mucosa Lungs: Clear to auscultation, Normal air movement Cardiovascular: Regular rate Abdomen: Soft Extremities: No clubbing, No cyanosis, Diminished Peripheral Pulses, Edema - generalized BLLE edema Skin: Ulcer/ Wound - Anterior posterior on the lateral left lower extremity ulcerations with adherent slough, less than 1 cm of erythema extending from the wound bed, serial sanguinous discharge present, moderate. 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 Neurological: Neuro grossly intact Psych/Mental Status: Normal Affect, Appropriate, Alert and oriented to time, place, person, mood and affect Debridement Note Post-Debridement Measurements/Treatment WC - Nurse 2 - General Ulcer CM Notes Start: 02/16/18 13:09 Freq: Status: Active Protocol: Activity Type Activity Date Activity User E-Sign Co-Sign Detail Recorded Client Recorded Date Recorded By Document 02/16/18 14:12 [id number] 02/16/18 14:18 TM Document 02/23/18 17:17 [id number] 02/23/18 17:19 TM Document 03/09/18 16:06 [id number] 03/09/18 16:11 02/16/18 02/23/18 03/09/18 14:12 17:17 16:06 Wound Center Nurse 2 #4 left anterior jain -Time 14:12 17:18 16:07 -Correct Patient Yes Yes Yes -Correct Side, Site, Position Yes Yes Yes -Correct Procedure Yes Yes Yes -Procedure Performed Yes Yes Yes -Type of Procedure Debridement Debridement Debridement -Clinical Debridement Subcutaneous Subcutaneous Subcutaneous -Post Debridement Size (cm) - Length 2.3 2.3 1.9 -Post Debridement Size (cm) - Width 1.9 2.0 1.4 -Post Debridement Size (cm) - Depth 0.1 0.1 0.1 -Total Square Cm 4.37 4.60 2.66 -Wound/Ulcer Outcome Not Healed Not Healed Not Healed -Ulcer Cleansing Rinsed/ Rinsed/ Not Cleansed Irrigated with Irrigated with Saline Saline -Foul Odor after Cleansing No No No -Bioengineered Tissue No No No -Topical Lidocaine (%) 5 4 -Bleeding Controlled with Pressure Pressure Pressure -Offloading No -Treatment Response Procedure Procedure Procedure Tolerated Well Tolerated Well Tolerated Well #3 left posterior leg -Time 14:13 17:18 16:08 -Correct Patient Yes Yes Yes -Correct Side, Site, Position Yes Yes Yes -Correct Procedure Yes Yes Yes -Procedure Performed Yes Yes Yes -Type of Procedure Debridement Debridement Debridement -Clinical Debridement Subcutaneous Subcutaneous Subcutaneous -Post Debridement Size (cm) - Length 1.2 1.2 0.9 -Post Debridement Size (cm) - Width 1.2 1.2 0.8 -Post Debridement Size (cm) - Depth 0.4 0.5 0.3 -Total Square Cm 1.44 1.44 0.72 -Wound/Ulcer Outcome Not Healed Not Healed Not Healed -Ulcer Cleansing Rinsed/ Rinsed/ Not Cleansed Irrigated with Irrigated with Saline Saline -Foul Odor after Cleansing No No No -Bioengineered Tissue No No No -Topical Lidocaine (%) 5 4 -Bleeding Controlled with Pressure Pressure Pressure -Offloading No -Treatment Response Procedure Procedure Procedure Tolerated Well Tolerated Well Tolerated Well #2 left lateral leg -Time 14:13 17:18 16:09 -Correct Patient Yes Yes Yes -Correct Side, Site, Position Yes Yes Yes -Correct Procedure Yes Yes Yes -Procedure Performed Yes Yes Yes -Type of Procedure Debridement Debridement Debridement -Clinical Debridement Subcutaneous Subcutaneous Subcutaneous -Post Debridement Size (cm) - Length 2.3 1.8 1.5 -Post Debridement Size (cm) - Width 1.9 2.3 1.9 -Post Debridement Size (cm) - Depth 0.1 0.2 0.1 -Total Square Cm 4.37 4.14 2.85 -Wound/Ulcer Outcome Not Healed Not Healed Not Healed -Ulcer Cleansing Rinsed/ Rinsed/ Not Cleansed Irrigated with Irrigated with Saline Saline -Foul Odor after Cleansing No No No -Bioengineered Tissue No No No -Topical Lidocaine (%) 5 4 -Bleeding Controlled with Pressure Pressure Pressure -Offloading No -Treatment Response Procedure Procedure Procedure Tolerated Well Tolerated Well Tolerated Well Pain Scale: 0-10 Numeric Is Patient Pain Free? Yes Yes Yes Wound debrided: Left anterior, posterior, and lateral venous leg ulcer Laterality: Left Type of Debridement: Excisional debridement Anesthesia Used: 5% Lidocaine Gel Depth: in the subcutaneous layer Percentage of wound debrided: 100 Instrument Used: 7mm curette Tissue Removed: Slough and devitalized tissue Severity: Fat Layer Exposed Amount of bleeding with debridement: Mild Bleeding Controlled with: Pressure Patient tolerated procedure well Assessment/Plan Assessment: Nonhealing ulcers to the left lower extremity, posterior, anterior, and lateral Plan: The patient was seen and examined at the wound center today and was updated on the plan of care. A subcutaneous debridement was performed today. The patient tolerated the procedure well. The patients wound care will consist of: Applying Elizabet to the lateral and posterior left lower extremity ulcers and applying hydrogel to the anterior lower extremity left ulcer, she may continue with her compression stockings. Wound cultures were collected prior and showed MRSA and started on a course of doxy, 4 additional days added. Baseline bloodwork essentially within normal limits. Vascular studies showed venous incompetence is in the left and right lower extremities and right GERARDO was 1.21 and left GERARDO was 1.14 with left digital brachial index mildly diminished suggesting the presence of mild distal small vessel arterial occlusive disease. Patient referred to vascular Dr. Hadley. Patient educated on the importance of diet on wound healing and instructed to increase protein and vitamin C intake. Patient instructed to take Tylenol prior to her next debridement. Discussed red flag symptoms of cellulitis and infection that require urgent medical attention. Patient verbalized understanding. Patient will follow up at wound healing center in one week or sooner if needed. This note was generated with [employer] dictation software. It may contain incorrect words, spelling, and punctuation that were not noted in checking the note before signing. Code Visit 111xxx-113xx: [id number] Zena subq tissue 20 sq cm/<
== END 2018-03-10 23:59 ==
LOC: WC 15:45
PROVIDERS: Family Provider Internal Medicine; PCP Internal Medicine; Referring Provider Nurse Practitioner Family; Visit Provider Nurse Practitioner Family
DX: L97.822 Non-pressure chronic ulcer of other part of left lower leg with fat layer exposed (principal); R60.0 Localized edema; R09.89 Other specified symptoms and signs involving the circulatory and respiratory systems; I10 Essential (primary) hypertension; E78.5 Hyperlipidemia, unspecified
CPT/HCPCS: 11042; 80053; 84134; 85025; 85652; 87070; 87075; 87077; 87186; 87205; 93923; 93970; 97602; 99213; G0463

== ENCOUNTER 2018-04-06 16:00 | Outpatient (RCR) | payer OTHER, SELFPAY ==
[2018-03-11 01:52] VITALS: BP 146/62; PULSE 85; RESP 18; TEMP 36.4
[2018-03-16 15:53] VITALS: BP 140/82; PULSE 84; RESP 16; TEMP 36.8; BMI 35.4
--- NOTE | 2018-03-16 18:51 | PCM.WC.PN ---
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 Status: Acute Current Visit: Yes Code(s): L97.922 - Non-pressure chronic ulcer of unspecified part of left lower leg with fat layer exposed Comment: x 3 (2) Bilateral lower extremity edema Status: Acute Current Visit: Yes Code(s): R60.0 - Localized edema (3) Decreased dorsalis pedis pulse Status: Acute Current Visit: Yes Code(s): R09.89 - Other specified symptoms and signs involving the circulatory and respiratory systems (4) Depression Status: Acute Current Visit: Yes Code(s): F32.9 - Major depressive disorder, single episode, unspecified (5) Hyperlipidemia Status: Acute Current Visit: Yes Code(s): E78.5 - Hyperlipidemia, unspecified (6) Hypertension Status: Chronic Current Visit: Yes Code(s): I10 - Essential (primary) hypertension Type of Wound Date of Service: 03/16/18 Chief Complaint: Nonhealing ulcers to the left lower extremity times 3 months History of Wound: This is a 62-year-old white female who presents to the wound healing center today with complaints of 3 lower extremity ulcers times 3 months. She states that these ulcerations occurred when she hit her left lower extremity on a laundry cart 3 months ago. She states that she typically wears compression stockings and that for wound care she has been using Aquacel extra that she ordered online. She denies any signs of infection at this time, though she does state that the ulcerations are tender and draining serosanguineous fluid. She denies any fever, chills, nausea, vomiting, shortness of breath, chest pain or pressure, syncope or presyncopal episodes. She denies any other aggravating or relieving factors. She has been seen in 2013 here for nonhealing wounds of the lower extremity as well. Progress of Wound: Stable, delayed wound healing, patient's wound culture showed MRSA and patient completed 14 day course of doxy. She does state that some of her ulceration pain has improved since starting the antibiotic denies any purulent drainage has been utilizing the hydrogel and Elizabet well. - Physical Exam Vital Signs Temp Pulse Resp BP 98.2 F 84 16 140/82 H 03/16/18 15:53 03/16/18 15:53 03/16/18 15:53 03/16/18 15:53 General: Alert, Oriented x3, Cooperative, No apparent distress HEENT: Atraumatic Lungs: Clear to auscultation Cardiovascular: Regular rate Extremities: No clubbing, No cyanosis, Diminished Peripheral Pulses, Edema - Generalized bilateral lower extremity edema Skin: Ulcer/ Wound - See nursing documentation for description of left anterior posterior and lateral lower extremity ulcerations, all with adherent slough, slight erythema surrounding wound bed edges not greater than 1 cm Wound Measurements and Assessment WC - Nurse 1 - General Ulcer Measurement Start: 03/16/18 15:53 Freq: Status: Active Protocol: Activity Type Activity Date Activity User E-Sign Co-Sign Detail Recorded Client Recorded Date Recorded By Document 03/16/18 15:53 CS [id number] 03/16/18 16:04 CS 03/16/18 15:53 Wound Center Nurse 1 [Ulcer Assessment] #4 left anterior jain -Combined with other wound No -Current Size (cm) - Length 2.3 -Current Size (cm) - Width 1.4 -Current Size (cm) - Depth 0.1 -Total Square Cm 3.22 -Photo Taken No -Epithelialization None Present -Tunneling No -Undermining/Tunneling No -Circular Undermining No -Exudate Amt Medium (34-66%) -Exudate Type Serosanguineous -Wound Margin Distinct, Outline Attached -Granulation Amt Medium (34-66%) -Granulation Quality Red -Slough/Fibrin Yes -Necrosis Amt Medium (34-66%) -Necrotic Tissue Type Adherent Slough -Structure Exposed None/Limited to Skin Breakdown -Texture (Patricia-wound Skin Appearance) No Abnormality Assessed -Moisture (Patricia-wound Skin Appearance No Abnormality ) Assessed -Color (Patricia-wound Skin Appearance) Erythema -Temperature (Patricia-wound Skin No Abnormality Appearance) (Pt Warm) -Tenderness on Palpation (Patricia-wound Yes Skin Appearance) -Ulcer Cleansing Rinsed/ Irrigated with Saline -Foul Odor after Cleansing No -Anesthetic Used 4% Lidocaine Solution #3 left posterior leg -Combined with other wound No -Current Size (cm) - Length 0.7 -Current Size (cm) - Width 0.9 -Current Size (cm) - Depth 0.2 -Total Square Cm 0.63 -Photo Taken No -Epithelialization None Present -Tunneling No -Undermining/Tunneling No -Circular Undermining No -Exudate Amt Medium (34-66%) -Exudate Type Serosanguineous -Wound Margin Distinct, Outline Attached -Granulation Amt Medium (34-66%) -Granulation Quality Red -Necrosis Amt None Present (0 %) -Necrotic Tissue Type Adherent Slough -Structure Exposed None/Limited to Skin Breakdown -Texture (Patricia-wound Skin Appearance) No Abnormality Assessed -Moisture (Patricia-wound Skin Appearance No Abnormality ) Assessed -Color (Patricia-wound Skin Appearance) Erythema -Temperature (Patricia-wound Skin No Abnormality Appearance) (Pt Warm) -Tenderness on Palpation (Patricia-wound Yes Skin Appearance) -Ulcer Cleansing Rinsed/ Irrigated with Saline -Foul Odor after Cleansing No -Anesthetic Used 4% Lidocaine Solution #2 left lateral leg -Combined with other wound No -Current Size (cm) - Length 1.4 -Current Size (cm) - Width 1.9 -Current Size (cm) - Depth 0.1 -Total Square Cm 2.66 -Photo Taken No -Epithelialization None Present -Tunneling No -Undermining/Tunneling No -Circular Undermining No -Exudate Amt Medium (34-66%) -Exudate Type Serosanguineous -Wound Margin Distinct, Outline Attached -Granulation Amt Medium (34-66%) -Granulation Quality Red -Slough/Fibrin Yes -Necrosis Amt Medium (34-66%) -Necrotic Tissue Type Adherent Slough -Structure Exposed None/Limited to Skin Breakdown -Texture (Patricia-wound Skin Appearance) No Abnormality Assessed -Moisture (Patricia-wound Skin Appearance No Abnormality ) Assessed -Color (Patricia-wound Skin Appearance) Erythema -Temperature (Patricia-wound Skin No Abnormality Appearance) (Pt Warm) -Tenderness on Palpation (Patricia-wound Yes Skin Appearance) -Ulcer Cleansing Rinsed/ Irrigated with Saline -Foul Odor after Cleansing No -Anesthetic Used 4% Lidocaine Solution [Edema Assessment] -Lower Limb Edema Present No -Left Calf (cm) 42 -Left Ankle (cm) 26 WC - Nurse 2 - General Ulcer CM Notes Start: 03/16/18 15:53 Freq: Status: Active Protocol: Activity Type Activity Date Activity User E-Sign Co-Sign Detail Recorded Client Recorded Date Recorded By Document 03/16/18 16:58 TM [id number] 03/16/18 17:00 TM 03/16/18 16:58 Wound Center Nurse 2 [Procedure/Treatment] #4 left anterior jain -Time 16:58 -Correct Patient Yes -Correct Side, Site, Position Yes -Correct Procedure Yes -Procedure Performed Yes -Type of Procedure Debridement -Clinical Debridement Subcutaneous -Post Debridement Size (cm) - Length 2.1 -Post Debridement Size (cm) - Width 1.6 -Post Debridement Size (cm) - Depth 0.1 -Total Square Cm 3.36 -Wound/Ulcer Outcome Not Healed -Ulcer Cleansing Rinsed/ Irrigated with Saline -Foul Odor after Cleansing No -Bioengineered Tissue No -Topical Lidocaine (%) 4 -Bleeding Controlled with Pressure Silver Nitrate -Offloading No -Treatment Response Procedure Tolerated Well #3 left posterior leg -Time 16:58 -Correct Patient Yes -Correct Side, Site, Position Yes -Correct Procedure Yes -Procedure Performed Yes -Type of Procedure Debridement -Clinical Debridement Subcutaneous -Post Debridement Size (cm) - Length 0.5 -Post Debridement Size (cm) - Width 0.6 -Post Debridement Size (cm) - Depth 0.2 -Total Square Cm 0.30 -Wound/Ulcer Outcome Not Healed -Ulcer Cleansing Rinsed/ Irrigated with Saline -Foul Odor after Cleansing No -Bioengineered Tissue No -Topical Lidocaine (%) 4 -Bleeding Controlled with Pressure -Treatment Response Procedure Tolerated Well #2 left lateral leg -Time 16:59 -Correct Patient Yes -Correct Side, Site, Position Yes -Correct Procedure Yes -Procedure Performed Yes -Type of Procedure Debridement -Clinical Debridement Subcutaneous -Post Debridement Size (cm) - Length 1.2 -Post Debridement Size (cm) - Width 1.9 -Post Debridement Size (cm) - Depth 0.1 -Total Square Cm 2.28 -Wound/Ulcer Outcome Not Healed -Ulcer Cleansing Rinsed/ Irrigated with Saline -Foul Odor after Cleansing No -Bioengineered Tissue No -Topical Lidocaine (%) 4 -Bleeding Controlled with Pressure -Offloading No -Treatment Response Procedure Tolerated Well [See Physician Procedure note for Specifics] Pain Scale: 0-10 Numeric [Pain] -Is Patient Pain Free? Yes Musculoskeletal: No Tenderness to Palpation of Joints or Extremities Neurological: Neuro grossly intact Psych/Mental Status: Normal Affect, Appropriate, Alert and oriented to time, place, person, mood and affect Debridement Note Post-Debridement Measurements/Treatment WC - Nurse 2 - General Ulcer CM Notes Start: 03/16/18 15:53 Freq: Status: Active Protocol: Activity Type Activity Date Activity User E-Sign Co-Sign Detail Recorded Client Recorded Date Recorded By Document 03/16/18 16:58 TM [id number] 03/16/18 17:00 TM 03/16/18 16:58 Wound Center Nurse 2 #4 left anterior jain -Time 16:58 -Correct Patient Yes -Correct Side, Site, Position Yes -Correct Procedure Yes -Procedure Performed Yes -Type of Procedure Debridement -Clinical Debridement Subcutaneous -Post Debridement Size (cm) - Length 2.1 -Post Debridement Size (cm) - Width 1.6 -Post Debridement Size (cm) - Depth 0.1 -Total Square Cm 3.36 -Wound/Ulcer Outcome Not Healed -Ulcer Cleansing Rinsed/ Irrigated with Saline -Foul Odor after Cleansing No -Bioengineered Tissue No -Topical Lidocaine (%) 4 -Bleeding Controlled with Pressure Silver Nitrate -Offloading No -Treatment Response Procedure Tolerated Well #3 left posterior leg -Time 16:58 -Correct Patient Yes -Correct Side, Site, Position Yes -Correct Procedure Yes -Procedure Performed Yes -Type of Procedure Debridement -Clinical Debridement Subcutaneous -Post Debridement Size (cm) - Length 0.5 -Post Debridement Size (cm) - Width 0.6 -Post Debridement Size (cm) - Depth 0.2 -Total Square Cm 0.30 -Wound/Ulcer Outcome Not Healed -Ulcer Cleansing Rinsed/ Irrigated with Saline -Foul Odor after Cleansing No -Bioengineered Tissue No -Topical Lidocaine (%) 4 -Bleeding Controlled with Pressure -Treatment Response Procedure Tolerated Well #2 left lateral leg -Time 16:59 -Correct Patient Yes -Correct Side, Site, Position Yes -Correct Procedure Yes -Procedure Performed Yes -Type of Procedure Debridement -Clinical Debridement Subcutaneous -Post Debridement Size (cm) - Length 1.2 -Post Debridement Size (cm) - Width 1.9 -Post Debridement Size (cm) - Depth 0.1 -Total Square Cm 2.28 -Wound/Ulcer Outcome Not Healed -Ulcer Cleansing Rinsed/ Irrigated with Saline -Foul Odor after Cleansing No -Bioengineered Tissue No -Topical Lidocaine (%) 4 -Bleeding Controlled with Pressure -Offloading No -Treatment Response Procedure Tolerated Well Pain Scale: 0-10 Numeric Is Patient Pain Free? Yes Wound debrided: Left anterior posterior lateral lower extremity mixed venous arterial Laterality: Left Type of Debridement: Excisional debridement Anesthesia Used: 5% Lidocaine Gel Depth: in the subcutaneous layer Percentage of wound debrided: 100 Instrument Used: 7mm curette Tissue Removed: Slough and devitalized tissue Severity: Fat Layer Exposed Amount of bleeding with debridement: Mild Bleeding Controlled with: Pressure Patient tolerated procedure well Assessment/Plan Active Problems Decreased dorsalis pedis pulse (Acute) Bilateral lower extremity edema (Acute) Hypertension (Chronic) Depression (Acute) Hyperlipidemia (Acute) Nonhealing ulcer of left lower extremity with fat layer exposed (Acute) x 3 Assessment: Nonhealing ulcers to the left lower extremity, posterior, anterior, and lateral Plan: The patient was seen and examined at the wound center today and was updated on the plan of care. A subcutaneous debridement was performed today. The patient tolerated the procedure well. The patients wound care will consist of: Applying elizabet to the lateral and posterior left lower extremity ulcers and applying hydrogel to the anterior lower extremity left ulcer, she may continue with her compression stockings. Wound cultures were collected prior and showed MRSA and started on a course of doxy. Baseline bloodwork essentially within normal limits. Vascular studies showed venous insufficiency and The resting right ankle?brachial index was calculated to be 1.21. The resting left ankle?brachial index was calculated to be 1.14. The patient was referred to Dr. Hadley for consultation. Given the patient's delayed wound healing, will apply for grafix PL to ulcerations. Patient educated on the importance of diet on wound healing and instructed to increase protein and vitamin C intake. Patient instructed to take Tylenol prior to her next debridement. Discussed red flag symptoms of cellulitis and infection that require urgent medical attention. Patient verbalized understanding. Patient will follow up at wound healing center in one week or sooner if needed. This note was generated with [employer] dictation software. It may contain incorrect words, spelling, and punctuation that were not noted in checking the note before signing. Code Visit [id number]: [id number] Zena subq tissue 20 sq cm/<
[2018-03-24 09:55] VITALS: BP 119/73; PULSE 87; RESP 18; TEMP 36.2; BMI 35.4
--- NOTE | 2018-03-24 17:33 | PN.PCM_ITS ---
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 Status: Chronic Current Visit: Yes Code(s): L97.922 - Non-pressure chronic ulcer of unspecified part of left lower leg with fat layer exposed Comment: x 3 (2) Decreased dorsalis pedis pulse Status: Chronic Current Visit: Yes Code(s): R09.89 - Other specified symptoms and signs involving the circulatory and respiratory systems (3) Bilateral lower extremity edema Status: Chronic Current Visit: Yes Code(s): R60.0 - Localized edema Type of Wound Date of Service: 03/24/18 Chief Complaint: Nonhealing ulcers to the left lower extremity times 3 months History of Wound: This is a 62-year-old white female who presents to the wound healing center today with complaints of 3 lower extremity ulcers times 3 months. She states that these ulcerations occurred when she hit her left lower extremity on a laundry cart 3 months ago. She states that she typically wears compression stockings and that for wound care she has been using Aquacel extra that she ordered online. She denies any signs of infection at this time, though she does state that the ulcerations are tender and draining serosanguineous fluid. She denies any fever, chills, nausea, vomiting, shortness of breath, chest pain or pressure, syncope or presyncopal episodes. She denies any other aggravating or relieving factors. She has been seen in 2013 here for nonhealing wounds of the lower extremity as well. Progress of Wound: Stable, delayed wound healing, patient's wound culture showed MRSA and patient completed 14 day course of doxy. She does state that some of her ulceration pain has improved since starting the antibiotic denies any purulent drainage has been utilizing the hydrogel and Samina well. - Physical Exam Vital Signs Temp Pulse Resp BP 97.1 F L 87 18 119/73 03/24/18 09:55 03/24/18 09:55 03/24/18 09:55 03/24/18 09:55 General: Alert, Oriented x3, Cooperative HEENT: Atraumatic Oral: Moist Mucosa Extremities: Capillary Refill Less than 3 Seconds, Diminished Peripheral Pulses, Edema Skin: Ulcer/ Wound - Left anterior lateral lower leg and left posterior lower leg Wound Measurements and Assessment WC - Nurse 1 - General Ulcer Measurement Start: 03/16/18 15:53 Freq: Status: Active Protocol: Activity Type Activity Date Activity User E-Sign Co-Sign Detail Recorded Client Recorded Date Recorded By Document 03/24/18 09:55 TORY [id number] 03/24/18 10:15 TORY 03/24/18 09:55 Wound Center Nurse 1 [Ulcer Assessment] #4 left anterior jain -Combined with other wound No -Current Size (cm) - Length 2.5 -Current Size (cm) - Width 1.9 -Current Size (cm) - Depth 0.1 -Total Square Cm 4.75 -Photo Taken No -Epithelialization None Present -Tunneling No -Undermining/Tunneling No -Circular Undermining No -Classification - Thickness Full Thickness without Exposed Support Structure -Exudate Amt Medium (34-66%) -Exudate Type Serosanguineous -Wound Margin Distinct, Outline Attached -Granulation Amt Medium (34-66%) -Granulation Quality Red -Slough/Fibrin Yes -Necrosis Amt None Present (0 %) -Necrotic Tissue Type Adherent Slough -Structure Exposed None/Limited to Skin Breakdown -Texture (Patricia-wound Skin Appearance) Friable -Moisture (Particia-wound Skin Appearance No Abnormality ) -Color (Patricia-wound Skin Appearance) Erythema -Temperature (Patricia-wound Skin No Abnormality Appearance) (Pt Warm) -Tenderness on Palpation (Patricia-wound Yes Skin Appearance) -Ulcer Cleansing Rinsed/ Irrigated with Saline -Foul Odor after Cleansing No -Anesthetic Used 4% Lidocaine Solution #3 left posterior leg -Combined with other wound No -Current Size (cm) - Length 0.8 -Current Size (cm) - Width 0.9 -Current Size (cm) - Depth 0.1 -Total Square Cm 0.72 -Photo Taken No -Epithelialization None Present -Tunneling No -Undermining/Tunneling No -Circular Undermining No -Classification - Thickness Full Thickness without Exposed Support Structure -Exudate Amt Medium (34-66%) -Exudate Type Serosanguineous -Wound Margin Distinct, Outline Attached -Granulation Amt Medium (34-66%) -Granulation Quality Red -Slough/Fibrin Yes -Necrosis Amt None Present (0 %) -Necrotic Tissue Type Adherent Slough -Structure Exposed None/Limited to Skin Breakdown -Texture (Patricia-wound Skin Appearance) Friable -Moisture (Patricia-wound Skin Appearance No Abnormality ) -Color (Patricia-wound Skin Appearance) Erythema -Temperature (Patricia-wound Skin No Abnormality Appearance) (Pt Warm) -Tenderness on Palpation (Patricia-wound Yes Skin Appearance) -Ulcer Cleansing Rinsed/ Irrigated with Saline -Foul Odor after Cleansing No -Anesthetic Used 4% Lidocaine Solution #2 left lateral leg -Combined with other wound No -Current Size (cm) - Length 1.2 -Current Size (cm) - Width 2.0 -Current Size (cm) - Depth 0.1 -Total Square Cm 2.40 -Photo Taken No -Tunneling No -Undermining/Tunneling No -Circular Undermining No -Classification - Thickness Full Thickness without Exposed Support Structure -Exudate Amt Medium (34-66%) -Exudate Type Serosanguineous -Wound Margin Distinct, Outline Attached -Granulation Amt Large (67-100%) -Granulation Quality Red -Slough/Fibrin Yes -Necrosis Amt None Present (0 %) -Necrotic Tissue Type Adherent Slough -Structure Exposed None/Limited to Skin Breakdown -Texture (Patricia-wound Skin Appearance) Friable -Moisture (Patricia-wound Skin Appearance No Abnormality ) -Color (Patricia-wound Skin Appearance) Hemosiderin Staining -Temperature (Patricia-wound Skin No Abnormality Appearance) (Pt Warm) -Tenderness on Palpation (Patricia-wound Yes Skin Appearance) -Ulcer Cleansing Rinsed/ Irrigated with Saline -Foul Odor after Cleansing No -Anesthetic Used 4% Lidocaine Solution [Edema Assessment] -Lower Limb Edema Present Yes -Left Calf (cm) 44.0 -Left Ankle (cm) 24.0 WC - Nurse 2 - General Ulcer CM Notes Start: 03/16/18 15:53 Freq: Status: Active Protocol: Activity Type Activity Date Activity User E-Sign Co-Sign Detail Recorded Client Recorded Date Recorded By Document 03/24/18 09:55 JS [id number] 03/24/18 10:15 03/24/18 09:55 Wound Center Nurse 2 [Procedure/Treatment] #4 left anterior jain -Time 10:26 -Correct Patient Yes -Correct Side, Site, Position Yes -Correct Procedure Yes -Procedure Performed Yes -Type of Procedure Debridement -Clinical Debridement Subcutaneous -Post Debridement Size (cm) - Length 2.5 -Post Debridement Size (cm) - Width 2.0 -Post Debridement Size (cm) - Depth 0.2 -Total Square Cm 5.00 -Wound/Ulcer Outcome Not Healed -Ulcer Cleansing Rinsed/ Irrigated with Saline -Foul Odor after Cleansing No -Bioengineered Tissue No -Topical Lidocaine (%) 4 -Lidocaine (ml) 5 -Bleeding Controlled with NA -Offloading No -Treatment Response Procedure Tolerated Well #3 left posterior leg -Time 10:26 -Correct Patient Yes -Correct Side, Site, Position Yes -Correct Procedure Yes -Procedure Performed Yes -Type of Procedure Debridement -Clinical Debridement Subcutaneous -Post Debridement Size (cm) - Length 0.5 -Post Debridement Size (cm) - Width 0.8 -Post Debridement Size (cm) - Depth 0.3 -Total Square Cm 0.40 -Wound/Ulcer Outcome Not Healed -Ulcer Cleansing Rinsed/ Irrigated with Saline -Foul Odor after Cleansing No -Bioengineered Tissue No -Topical Lidocaine (%) 4 -Lidocaine (ml) 5 -Bleeding Controlled with NA -Offloading No -Treatment Response Procedure Tolerated Well #2 left lateral leg -Time 10:27 -Correct Patient Yes -Correct Side, Site, Position Yes -Correct Procedure Yes -Procedure Performed Yes -Type of Procedure Debridement -Clinical Debridement Subcutaneous -Post Debridement Size (cm) - Length 1.0 -Post Debridement Size (cm) - Width 2.0 -Post Debridement Size (cm) - Depth 0.2 -Total Square Cm 2.00 -Wound/Ulcer Outcome Not Healed -Ulcer Cleansing Rinsed/ Irrigated with Saline -Foul Odor after Cleansing No -Bioengineered Tissue No -Topical Lidocaine (%) 4 -Lidocaine (ml) 5 -Bleeding Controlled with NA -Offloading No -Treatment Response Procedure Tolerated Well Musculoskeletal: No Tenderness to Palpation of Joints or Extremities Neurological: Neuro grossly intact Psych/Mental Status: Normal Affect, Appropriate Debridement Note Post-Debridement Measurements/Treatment WC - Nurse 2 - General Ulcer CM Notes Start: 03/16/18 15:53 Freq: Status: Active Protocol: Activity Type Activity Date Activity User E-Sign Co-Sign Detail Recorded Client Recorded Date Recorded By Document 03/16/18 16:58 TM [id number] 03/16/18 17:00 TM Document 03/24/18 09:55 JS [email or web address] 03/24/18 10:15 JS 03/16/18 03/24/18 16:58 09:55 Wound Center Nurse 2 #4 left anterior jain -Time 16:58 10:26 -Correct Patient Yes Yes -Correct Side, Site, Position Yes Yes -Correct Procedure Yes Yes -Procedure Performed Yes Yes -Type of Procedure Debridement Debridement -Clinical Debridement Subcutaneous Subcutaneous -Post Debridement Size (cm) - Length 2.1 2.5 -Post Debridement Size (cm) - Width 1.6 2.0 -Post Debridement Size (cm) - Depth 0.1 0.2 -Total Square Cm 3.36 5.00 -Wound/Ulcer Outcome Not Healed Not Healed -Ulcer Cleansing Rinsed/ Rinsed/ Irrigated with Irrigated with Saline Saline -Foul Odor after Cleansing No No -Bioengineered Tissue No No -Topical Lidocaine (%) 4 4 -Lidocaine (ml) 5 -Bleeding Controlled with Pressure NA Silver Nitrate -Offloading No No -Treatment Response Procedure Procedure Tolerated Well Tolerated Well #3 left posterior leg -Time 16:58 10:26 -Correct Patient Yes Yes -Correct Side, Site, Position Yes Yes -Correct Procedure Yes Yes -Procedure Performed Yes Yes -Type of Procedure Debridement Debridement -Clinical Debridement Subcutaneous Subcutaneous -Post Debridement Size (cm) - Length 0.5 0.5 -Post Debridement Size (cm) - Width 0.6 0.8 -Post Debridement Size (cm) - Depth 0.2 0.3 -Total Square Cm 0.30 0.40 -Wound/Ulcer Outcome Not Healed Not Healed -Ulcer Cleansing Rinsed/ Rinsed/ Irrigated with Irrigated with Saline Saline -Foul Odor after Cleansing No No -Bioengineered Tissue No No -Topical Lidocaine (%) 4 4 -Lidocaine (ml) 5 -Bleeding Controlled with Pressure NA -Offloading No -Treatment Response Procedure Procedure Tolerated Well Tolerated Well #2 left lateral leg -Time 16:59 10:27 -Correct Patient Yes Yes -Correct Side, Site, Position Yes Yes -Correct Procedure Yes Yes -Procedure Performed Yes Yes -Type of Procedure Debridement Debridement -Clinical Debridement Subcutaneous Subcutaneous -Post Debridement Size (cm) - Length 1.2 1.0 -Post Debridement Size (cm) - Width 1.9 2.0 -Post Debridement Size (cm) - Depth 0.1 0.2 -Total Square Cm 2.28 2.00 -Wound/Ulcer Outcome Not Healed Not Healed -Ulcer Cleansing Rinsed/ Rinsed/ Irrigated with Irrigated with Saline Saline -Foul Odor after Cleansing No No -Bioengineered Tissue No No -Topical Lidocaine (%) 4 4 -Lidocaine (ml) 5 -Bleeding Controlled with Pressure NA -Offloading No No -Treatment Response Procedure Procedure Tolerated Well Tolerated Well Pain Scale: 0-10 Numeric Is Patient Pain Free? Yes Wound debrided: Left anterior lateral lower leg Type of Debridement: Excisional debridement Anesthesia Used: 4% Lidocaine Solution Depth: Down to and including healthy tissue Percentage of wound debrided: 100 Instrument Used: 3mm curette Tissue Removed: Subcutaneous tissue and slough Severity: Fat Layer Exposed Amount of bleeding with debridement: Mild Bleeding Controlled with: Pressure Patient tolerated procedure well - Additional Wound Wound debrided: Left posterior lower leg Laterality: Left Type of Debridement: Excisional debridement Anesthesia Used: 4% Lidocaine Solution Depth: Down to and including healthy tissue, in the subcutaneous layer Percentage of wound debrided: 100 Instrument Used: 3mm curette Tissue Removed: Subcutaneous tissue and slough Severity: Limited To Skin Breakdown Amount of bleeding with debridement: Mild Bleeding Controlled with: Pressure, Compression and gauze Patient tolerated procedure: Patient tolerated procedure well Assessment/Plan Active Problems Decreased dorsalis pedis pulse (Chronic) Bilateral lower extremity edema (Chronic) Hypertension (Chronic) Depression (Acute) Hyperlipidemia (Acute) Nonhealing 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 A subcutaneous debridement was performed today. The patient tolerated the procedure well. The patients wound care will consist of: Applying samina to all of the ulcers because the anterior lower extremity left ulcer where the hydrogel was being applied was very moist this week. She will continue with her compression stockings. Wound cultures were collected prior and showed MRSA and started on a course of doxy. Baseline bloodwork essentially within normal limits. Vascular studies showed venous insufficiency and The resting right ankle?brachial index was calculated to be 1.21. The resting left ankle?brachial index was calculated to be 1.14. The patient was referred to Dr. Hadley for consultation. Given the patient's delayed wound healing, will apply for grafix PL to ulcerations (still waiting for approval). Patient educated on the importance of diet on wound healing and instructed to increase protein and vitamin C intake. Patient instructed to take Tylenol prior to her next d ebridement. Discussed red flag symptoms of cellulitis and infection that require urgent medical attention. Patient verbalized understanding. Patient will follow up at wound healing center in one week or sooner if needed. This note was generated with [employer] dictation software. It may contain incorrect words, spelling, and punctuation that were not noted in checking the note before signing. Code Visit 111xxx-113xx: 80188 Zena subq tissue 20 sq cm/<
[2018-03-30 15:56] VITALS: BP 136/82; PULSE 99; RESP 18; TEMP 37.1; BMI 35.4
--- NOTE | 2018-03-30 20:11 | PCM.WC.PN ---
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 Status: Chronic Code(s): L97.922 - Non-pressure chronic ulcer of unspecified part of left lower leg with fat layer exposed Comment: x 3 (2) Bilateral lower extremity edema Status: Chronic Code(s): R60.0 - Localized edema (3) Decreased dorsalis pedis pulse Status: Chronic Code(s): R09.89 - Other specified symptoms and signs involving the circulatory and respiratory systems (4) Depression Status: Acute Code(s): F32.9 - Major depressive disorder, single episode, unspecified (5) Hyperlipidemia Status: Acute Code(s): E78.5 - Hyperlipidemia, unspecified (6) Hypertension Status: Chronic Code(s): I10 - Essential (primary) hypertension Type of Wound Date of Service: 03/30/18 Chief Complaint: Nonhealing ulcers to the left lower extremity times 3 months History of Wound: This is a 62-year-old white female who presents to the wound healing center today with complaints of 3 lower extremity ulcers times 3 months. She states that these ulcerations occurred when she hit her left lower extremity on a laundry cart 3 months ago. She states that she typically wears compression stockings and that for wound care she has been using Aquacel extra that she ordered online. She denies any signs of infection at this time, though she does state that the ulcerations are tender and draining serosanguineous fluid. She denies any fever, chills, nausea, vomiting, shortness of breath, chest pain or pressure, syncope or presyncopal episodes. She denies any other aggravating or relieving factors. She has been seen in 2013 here for nonhealing wounds of the lower extremity as well. Progress of Wound: Stable, delayed wound healing, continues to have pain to the left anterior ulcer, denies any purulent drainage has been utilizing the hydrogel and Elizabet well. Did state that she followed up with Dr. Hadley who recommended sclerotherapy, will request records for continuity of care - Physical Exam Vital Signs Temp Pulse Resp BP 98.7 F 99 18 136/82 H 03/30/18 15:56 03/30/18 15:56 03/30/18 15:56 03/30/18 15:56 General: Alert, Oriented x3, Cooperative, No apparent distress HEENT: Atraumatic Lungs: Clear to auscultation Cardiovascular: Regular rate Abdomen: Soft, Non Tender, Obese Extremities: No clubbing, No cyanosis, Diminished Peripheral Pulses, Edema - Generalized bilateral lower extremity edema Skin: Ulcer/ Wound - See nursing wound documentation, no obvious signs of infection, however there is some surrounding erythema to left anterior lower extremity ulcer Musculoskeletal: No Muscle Wasting Neurological: Neuro grossly intact Psych/Mental Status: Normal Affect, Appropriate, Alert and oriented to time, place, person, mood and affect Debridement Note Post-Debridement Measurements/Treatment WC - Nurse 2 - General Ulcer CM Notes Start: 03/16/18 15:53 Freq: Status: Active Protocol: Activity Type Activity Date Activity User E-Sign Co-Sign Detail Recorded Client Recorded Date Recorded By Document 03/16/18 16:58 TM [id number] 03/16/18 17:00 TM Document 03/24/18 09:55 JS [id number] 03/24/18 10:15 JS Document 03/30/18 16:38 [id number] 03/30/18 16:40 03/16/18 03/24/18 03/30/18 16:58 09:55 16:38 Wound Center Nurse 2 #4 left anterior jain -Time 16:58 10:26 16:38 -Correct Patient Yes Yes Yes -Correct Side, Site, Position Yes Yes Yes -Correct Procedure Yes Yes Yes -Procedure Performed Yes Yes Yes -Type of Procedure Debridement Debridement Debridement -Clinical Debridement Subcutaneous Subcutaneous Subcutaneous -Post Debridement Size (cm) - Length 2.1 2.5 2.4 -Post Debridement Size (cm) - Width 1.6 2.0 2.2 -Post Debridement Size (cm) - Depth 0.1 0.2 0.1 -Total Square Cm 3.36 5.00 5.28 -Wound/Ulcer Outcome Not Healed Not Healed Not Healed -Ulcer Cleansing Rinsed/ Rinsed/ Not Cleansed Irrigated with Irrigated with Saline Saline -Foul Odor after Cleansing No No No -Bioengineered Tissue No No No -Topical Lidocaine (%) 4 4 -Lidocaine (ml) 5 -Bleeding Controlled with Pressure NA NA Silver Nitrate -Offloading No No No -Treatment Response Procedure Procedure Procedure Tolerated Well Tolerated Well Tolerated Well #3 left posterior leg -Time 16:58 10:26 16:39 -Correct Patient Yes Yes Yes -Correct Side, Site, Position Yes Yes Yes -Correct Procedure Yes Yes Yes -Procedure Performed Yes Yes Yes -Type of Procedure Debridement Debridement Debridement -Clinical Debridement Subcutaneous Subcutaneous Subcutaneous -Post Debridement Size (cm) - Length 0.5 0.5 0.6 -Post Debridement Size (cm) - Width 0.6 0.8 0.6 -Post Debridement Size (cm) - Depth 0.2 0.3 0.2 -Total Square Cm 0.30 0.40 0.36 -Wound/Ulcer Outcome Not Healed Not Healed Not Healed -Ulcer Cleansing Rinsed/ Rinsed/ Not Cleansed Irrigated with Irrigated with Saline Saline -Foul Odor after Cleansing No No No -Bioengineered Tissue No No No -Topical Lidocaine (%) 4 4 -Lidocaine (ml) 5 -Bleeding Controlled with Pressure NA NA -Offloading No No -Treatment Response Procedure Procedure Procedure Tolerated Well Tolerated Well Tolerated Well #2 left lateral leg -Time 16:59 10:27 16:39 -Correct Patient Yes Yes Yes -Correct Side, Site, Position Yes Yes Yes -Correct Procedure Yes Yes Yes -Procedure Performed Yes Yes Yes -Type of Procedure Debridement Debridement Debridement -Clinical Debridement Subcutaneous Subcutaneous Subcutaneous -Post Debridement Size (cm) - Length 1.2 1.0 1.1 -Post Debridement Size (cm) - Width 1.9 2.0 1.3 -Post Debridement Size (cm) - Depth 0.1 0.2 0.1 -Total Square Cm 2.28 2.00 1.43 -Wound/Ulcer Outcome Not Healed Not Healed Not Healed -Ulcer Cleansing Rinsed/ Rinsed/ Not Cleansed Irrigated with Irrigated with Saline Saline -Foul Odor after Cleansing No No No -Bioengineered Tissue No No No -Topical Lidocaine (%) 4 4 -Lidocaine (ml) 5 -Bleeding Controlled with Pressure NA NA -Offloading No No No -Treatment Response Procedure Procedure Procedure Tolerated Well Tolerated Well Tolerated Well Pain Scale: 0-10 Numeric Is Patient Pain Free? Yes No Wound debrided: Left lower extremity anterior, posterior and lateral ulcer Laterality: Left Type of Debridement: Excisional debridement Anesthesia Used: 5% Lidocaine Gel Depth: in the subcutaneous layer Percentage of wound debrided: 100 Instrument Used: 7mm curette Tissue Removed: Slough and devitalized tissue Severity: Fat Layer Exposed Amount of bleeding with debridement: Mild Bleeding Controlled with: Pressure Patient tolerated procedure well Assessment/Plan Assessment: Nonhealing ulcers to the left lower extremity, posterior, anterior, and lateral Plan: The patient was seen and examined at the wound center today and was updated on the plan of care. A subcutaneous debridement was performed today. The patient tolerated the procedure well. The patients wound care will consist of: Applying elizabet to left posterior and lateral lower extremity ulcers and Santyl to the left anterior lower extremity ulcer where debridement was limited due to patient's pain. She will continue with her compression stockings. Wound cultures were collected prior and showed MRSA and started on a course of doxy. Wound cultures were done to the left anterior lower extremity ulcer as patient has had an increase in pain. Baseline bloodwork essentially within normal limits. Vascular studies showed venous insufficiency and The resting right ankle?brachial index was calculated to be 1.21. The resting left ankle?brachial index was calculated to be 1.14. The patient was referred to Dr. Hadley for consultation and per patient stated that she will be having sclerotherapy done in the future, will request Dr. Hadley's note for continuity of care. Given the patient's delayed wound healing, will apply for grafix PL to ulcerations (still waiting for approval). Patient educated on the importance of diet on wound healing and instructed to increase protein and vitamin C intake. Patient instructed to take Tylenol prior to her next debridement. Discussed red flag symptoms of cellulitis and infection that require urgent medical attention. Patient verbalized understanding. Patient will follow up at wound healing center in one week or sooner if needed. This note was generated with [employer] dictation software. It may contain incorrect words, spelling, and punctuation that were not noted in checking the note before signing. Code Visit 111xxx-113xx: 74296 Zena subq tissue 20 sq cm/<
--- NOTE | 2018-04-05 09:15 | PN.PCM_ITS ---
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 Status: Chronic Code(s): L97.922 - Non-pressure chronic ulcer of unspecified part of left lower leg with fat layer exposed Comment: x 3 (2) Bilateral lower extremity edema Status: Chronic Code(s): R60.0 - Localized edema (3) Decreased dorsalis pedis pulse Status: Chronic Code(s): R09.89 - Other specified symptoms and signs involving the circulatory and respiratory systems (4) Depression Status: Acute Code(s): F32.9 - Major depressive disorder, single episode, unspecified (5) Hyperlipidemia Status: Acute Code(s): E78.5 - Hyperlipidemia, unspecified (6) Hypertension Status: Chronic Code(s): I10 - Essential (primary) hypertension Type of Wound Date of Service: 03/30/18 Chief Complaint: Nonhealing ulcers to the left lower extremity times 3 months History of Wound: This is a 62-year-old white female who presents to the wound healing center today with complaints of 3 lower extremity ulcers times 3 months. She states that these ulcerations occurred when she hit her left lower extr emity on a laundry cart 3 months ago. She states that she typically wears compression stockings and that for wound care she has been using Aquacel extra that she ordered online. She denies any signs of infection at this time, though she does state that the ulcerations are tender and draining serosanguineous fluid. She denies any fever, chills, nausea, vomiting, shortness of breath, chest pain or pressure, syncope or presyncopal episodes. She denies any other aggravating or relieving factors. She has been seen in 2013 here for nonhealing wounds of the lower extremity as well. Progress of Wound: Stable, delayed wound healing, continues to have pain to the left anterior ulcer, denies any purulent drainage has been utilizing the hydrogel and Elizabet well. Did state that she followed up with Dr. Hadley who recommended sclerotherapy, will request records for continuity of care - Physical Exam Vital Signs Temp Pulse Resp BP 98.7 F 99 18 136/82 H 03/30/18 15:56 03/30/18 15:56 03/30/18 15:56 03/30/18 15:56 General: Alert, Oriented x3, Cooperative, No apparent distress HEENT: Atraumatic Lungs: Clear to auscultation Cardiovascular: Regular rate Abdomen: Soft, Non Tender, Obese Extremities: No clubbing, No cyanosis, Diminished Peripheral Pulses, Edema - Generalized bilateral lower extremity edema Skin: Ulcer/ Wound - See nursing wound documentation, no obvious signs of infection, however there is some surrounding erythema to left anterior lower extremity ulcer Musculoskeletal: No Muscle Wasting Neurological: Neuro grossly intact Psych/Mental Status: Normal Affect, Appropriate, Alert and oriented to time, place, person, mood and affect Debridement Note Post-Debridement Measurements/Treatment WC - Nurse 2 - General Ulcer CM Notes Start: 03/16/18 15:53 Freq: Status: Active Protocol: Activity Type Activity Date Activity User E-Sign Co-Sign Detail Recorded Client Recorded Date Recorded By Document 03/16/18 16:58 TM [id number] 03/16/18 17:00 TM Document 03/24/18 09:55 JS [id number] 03/24/18 10:15 JS Document 03/30/18 16:38 [id number] 03/30/18 16:40 03/16/18 03/24/18 03/30/18 16:58 09:55 16:38 Wound Center Nurse 2 #4 left anterior jain -Time 16:58 10:26 16:38 -Correct Patient Yes Yes Yes -Correct Side, Site, Position Yes Yes Yes -Correct Procedure Yes Yes Yes -Procedure Performed Yes Yes Yes -Type of Procedure Debridement Debridement Debridement -Clinical Debridement Subcutaneous Subcutaneous Subcutaneous -Post Debridement Size (cm) - Length 2.1 2.5 2.4 -Post Debridement Size (cm) - Width 1.6 2.0 2.2 -Post Debridement Size (cm) - Depth 0.1 0.2 0.1 -Total Square Cm 3.36 5.00 5.28 -Wound/Ulcer Outcome Not Healed Not Healed Not Healed -Ulcer Cleansing Rinsed/ Rinsed/ Not Cleansed Irrigated with Irrigated with Saline Saline -Foul Odor after Cleansing No No No -Bioengineered Tissue No No No -Topical Lidocaine (%) 4 4 -Lidocaine (ml) 5 -Bleeding Controlled with Pressure NA NA Silver Nitrate -Offloading No No No -Treatment Response Procedure Procedure Procedure Tolerated Well Tolerated Well Tolerated Well #3 left posterior leg -Time 16:58 10:26 16:39 -Correct Patient Yes Yes Yes -Correct Side, Site, Position Yes Yes Yes -Correct Procedure Yes Yes Yes -Procedure Performed Yes Yes Yes -Type of Procedure Debridement Debridement Debridement -Clinical Debridement Subcutaneous Subcutaneous Subcutaneous -Post Debridement Size (cm) - Length 0.5 0.5 0.6 -Post Debridement Size (cm) - Width 0.6 0.8 0.6 -Post Debridement Size (cm) - Depth 0.2 0.3 0.2 -Total Square Cm 0.30 0.40 0.36 -Wound/Ulcer Outcome Not Healed Not Healed Not Healed -Ulcer Cleansing Rinsed/ Rinsed/ Not Cleansed Irrigated with Irrigated with Saline Saline -Foul Odor after Cleansing No No No -Bioengineered Tissue No No No -Topical Lidocaine (%) 4 4 -Lidocaine (ml) 5 -Bleeding Controlled with Pressure NA NA -Offloading No No -Treatment Response Procedure Procedure Procedure Tolerated Well Tolerated Well Tolerated Well #2 left lateral leg -Time 16:59 10:27 16:39 -Correct Patient Yes Yes Yes -Correct Side, Site, Position Yes Yes Yes -Correct Procedure Yes Yes Yes -Procedure Performed Yes Yes Yes -Type of Procedure Debridement Debridement Debridement -Clinical Debridement Subcutaneous Subcutaneous Subcutaneous -Post Debridement Size (cm) - Length 1.2 1.0 1.1 -Post Debridement Size (cm) - Width 1.9 2.0 1.3 -Post Debridement Size (cm) - Depth 0.1 0.2 0.1 -Total Square Cm 2.28 2.00 1.43 -Wound/Ulcer Outcome Not Healed Not Healed Not Healed -Ulcer Cleansing Rinsed/ Rinsed/ Not Cleansed Irrigated with Irrigated with Saline Saline -Foul Odor after Cleansing No No No -Bioengineered Tissue No No No -Topical Lidocaine (%) 4 4 -Lidocaine (ml) 5 -Bleeding Controlled with Pressure NA NA -Offloading No No No -Treatment Response Procedure Procedure Procedure Tolerated Well Tolerated Well Tolerated Well Pain Scale: 0-10 Numeric Is Patient Pain Free? Yes No Wound debrided: Left lower extremity anterior, posterior and lateral ulcer Laterality: Left Type of Debridement: Excisional debridement Anesthesia Used: 5% Lidocaine Gel Depth: in the subcutaneous layer Percentage of wound debrided: 100 Instrument Used: 7mm curette Tissue Removed: Slough and devitalized tissue Severity: Fat Layer Exposed Amount of bleeding with debridement: Mild Bleeding Controlled with: Pressure Patient tolerated procedure well Assessment/Plan Assessment: Nonhealing ulcers to the left lower extremity, posterior, anterior, and lateral Plan: The patient was seen and examined at the wound center today and was updated on the plan of care. A subcutaneous debridement was performed today. The patient tolerated the procedure well. The patients wound care will consist of: Applying elizabet to left posterior and lateral lower extremity ulcers and Santyl to the left anterior lower extremity ulcer where debridement was limited due to patient's pain. She will continue with her compression stockings. Wound cultures were collected prior and showed MRSA and started on a course of doxy. Wound cultures were done to the left anterior lower extremity ulcer as patient has had an increase in pain. Baseline bloodwork essentially within normal limits. Vascular studies showed venous insufficiency and The resting right ankle?brachial index was calculated to be 1.21. The resting left ankle?brachial index was calculated to be 1.14. The patient was referred to Dr. Hadley for consultation and per patient stated that she will be having sclerotherapy done in the future, will request Dr. Hadley's note for continuity of care. Given the patient's delayed wound healing, will apply for grafix PL to ulcerations (still waiting for approval). Patient educated on the importance of diet on wound healing and instructed to increase protein and vitamin C intake. Patient instructed to take Tylenol prior to her next debridement. Discussed red flag symptoms of cellulitis and infection that require urgent medical attention. Patient verbalized understanding. Patient will follow up at wound healing center in one week or sooner if needed. This note was generated with [employer] dictation software. It may contain incorrect words, spelling, and punctuation that were not noted in checking the note before signing. Code Visit [id number]: 16775 Zena subq tissue 20 sq cm/<
[2018-04-06 15:53] VITALS: BP 140/87; PULSE 96; RESP 18; TEMP 36; BMI 35.4
--- NOTE | 2018-04-06 19:52 | PCM.WC.PN ---
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 Status: Chronic Code(s): L97.922 - Non-pressure chronic ulcer of unspecified part of left lower leg with fat layer exposed Comment: x 3 (2) Bilateral lower extremity edema Status: Chronic Code(s): R60.0 - Localized edema (3) Decreased dorsalis pedis pulse Status: Chronic Code(s): R09.89 - Other specified symptoms and signs involving the circulatory and respiratory systems (4) Depression Status: Acute Code(s): F32.9 - Major depressive disorder, single episode, unspecified (5) Hyperlipidemia Status: Acute Code(s): E78.5 - Hyperlipidemia, unspecified (6) Hypertension Status: Chronic Code(s): I10 - Essential (primary) hypertension (7) MRSA cellulitis Status: Acute Code(s): L03.90 - Cellulitis, unspecified; B95.62 - Methicillin resistant Staphylococcus aureus infection as the cause of diseases classified elsewhere (8) Cellulitis of left lower extremity Status: Acute Code(s): L03.116 - Cellulitis of left lower limb Type of Wound Date of Service: 04/06/18 Chief Complaint: Nonhealing ulcers to the left lower extremity times 3 months History of Wound: This is a 62-year-old white female who presents to the wound healing center today with complaints of 3 lower extremity ulcers times 3 months. She states that these ulcerations occurred when she hit her left lower extremity on a laundry cart 3 months ago. She states that she typically wears compression stockings and that for wound care she has been using Aquacel extra that she ordered online. She denies any signs of infection at this time, though she does state that the ulcerations are tender and draining serosanguineous fluid. She denies any fever, chills, nausea, vomiting, shortness of breath, chest pain or pressure, syncope or presyncopal episodes. She denies any other aggravating or relieving factors. She has been seen in 2013 here for nonhealing wounds of the lower extremity as well. Progress of Wound: Stable, slight improvement in size of all ulcers, delayed wound healing, continues to have pain to the left anterior ulcer, denies any purulent drainage has been utilizing the hydrogel and Elizabet well. Did state that she followed up with Dr. Hadley who recommended sclerotherapy, will request records for continuity of care - Physical Exam Vital Signs Temp Pulse Resp BP 96.8 F L 96 18 140/87 H 04/06/18 15:53 04/06/18 15:53 04/06/18 15:53 04/06/18 15:53 General: Alert, Oriented x3, Cooperative, No apparent distress HEENT: Atraumatic Oral: Moist Mucosa Neck: Supple Lungs: Clear to auscultation Cardiovascular: Regular rate Abdomen: Soft, Non Tender Extremities: Diminished Peripheral Pulses, Edema - 1+ edema bilateral lower extremities Skin: Ulcer/ Wound - Left lower extremity anterior posterior and lateral ulcerations with adherent slough, surrounding erythema and warmth present to anterior lower extremity ulceration consistent with that of cellulitis, prior culture was positive for MRSA, no purulent drainage or foul smell. No streaking Musculoskeletal: No Tenderness to Palpation of Joints or Extremities Neurological: Neuro grossly intact Psych/Mental Status: Normal Affect, Appropriate, Alert and oriented to time, place, person, mood and affect Debridement Note Post-Debridement Measurements/Treatment WC - Nurse 2 - General Ulcer CM Notes Start: 03/16/18 15:53 Freq: Status: Active Protocol: Activity Type Activity Date Activity User E-Sign Co-Sign Detail Recorded Client Recorded Date Recorded By Document 03/16/18 16:58 [id number] 03/16/18 17:00 TM Document 03/24/18 09:55 JS [id number] 03/24/18 10:15 JS Document 03/30/18 16:38 [id number] 03/30/18 16:40 CS Document 04/06/18 16:45 [id number] 04/06/18 16:48 CS 03/16/18 03/24/18 03/30/18 16:58 09:55 16:38 Wound Center Nurse 2 #4 left anterior jain -Time 16:58 10:26 16:38 -Correct Patient Yes Yes Yes -Correct Side, Site, Position Yes Yes Yes -Correct Procedure Yes Yes Yes -Procedure Performed Yes Yes Yes -Type of Procedure Debridement Debridement Debridement -Clinical Debridement Subcutaneous Subcutaneous Subcutaneous -Post Debridement Size (cm) - Length 2.1 2.5 2.4 -Post Debridement Size (cm) - Width 1.6 2.0 2.2 -Post Debridement Size (cm) - Depth 0.1 0.2 0.1 -Total Square Cm 3.36 5.00 5.28 -Wound/Ulcer Outcome Not Healed Not Healed Not Healed -Ulcer Cleansing Rinsed/ Rinsed/ Not Cleansed Irrigated with Irrigated with Saline Saline -Foul Odor after Cleansing No No No -Bioengineered Tissue No No No -Topical Lidocaine (%) 4 4 -Lidocaine (ml) 5 -Bleeding Controlled with Pressure NA NA Silver Nitrate -Offloading No No No -Treatment Response Procedure Procedure Procedure Tolerated Well Tolerated Well Tolerated Well #3 left posterior leg -Time 16:58 10:26 16:39 -Correct Patient Yes Yes Yes -Correct Side, Site, Position Yes Yes Yes -Correct Procedure Yes Yes Yes -Procedure Performed Yes Yes Yes -Type of Procedure Debridement Debridement Debridement -Clinical Debridement Subcutaneous Subcutaneous Subcutaneous -Post Debridement Size (cm) - Length 0.5 0.5 0.6 -Post Debridement Size (cm) - Width 0.6 0.8 0.6 -Post Debridement Size (cm) - Depth 0.2 0.3 0.2 -Total Square Cm 0.30 0.40 0.36 -Wound/Ulcer Outcome Not Healed Not Healed Not Healed -Ulcer Cleansing Rinsed/ Rinsed/ Not Cleansed Irrigated with Irrigated with Saline Saline -Foul Odor after Cleansing No No No -Bioengineered Tissue No No No -Topical Lidocaine (%) 4 4 -Lidocaine (ml) 5 -Bleeding Controlled with Pressure NA NA -Offloading No No -Treatment Response Procedure Procedure Procedure Tolerated Well Tolerated Well Tolerated Well #2 left lateral leg -Time 16:59 10:27 16:39 -Correct Patient Yes Yes Yes -Correct Side, Site, Position Yes Yes Yes -Correct Procedure Yes Yes Yes -Procedure Performed Yes Yes Yes -Type of Procedure Debridement Debridement Debridement -Clinical Debridement Subcutaneous Subcutaneous Subcutaneous -Post Debridement Size (cm) - Length 1.2 1.0 1.1 -Post Debridement Size (cm) - Width 1.9 2.0 1.3 -Post Debridement Size (cm) - Depth 0.1 0.2 0.1 -Total Square Cm 2.28 2.00 1.43 -Wound/Ulcer Outcome Not Healed Not Healed Not Healed -Ulcer Cleansing Rinsed/ Rinsed/ Not Cleansed Irrigated with Irrigated with Saline Saline -Foul Odor after Cleansing No No No -Bioengineered Tissue No No No -Topical Lidocaine (%) 4 4 -Lidocaine (ml) 5 -Bleeding Controlled with Pressure NA NA -Offloading No No No -Treatment Response Procedure Procedure Procedure Tolerated Well Tolerated Well Tolerated Well Pain Scale: 0-10 Numeric Is Patient Pain Free? Yes No 04/06/18 16:45 Wound Center Nurse 2 #4 left anterior jain -Time 16:45 -Correct Patient Yes -Correct Side, Site, Position Yes -Correct Procedure Yes -Procedure Performed Yes -Type of Procedure Debridement -Clinical Debridement Subcutaneous -Post Debridement Size (cm) - Length 2.2 -Post Debridement Size (cm) - Width 1.9 -Post Debridement Size (cm) - Depth 0.1 -Total Square Cm 4.18 -Wound/Ulcer Outcome Not Healed -Ulcer Cleansing Not Cleansed -Foul Odor after Cleansing No -Bioengineered Tissue No -Topical Lidocaine (%) -Lidocaine (ml) -Bleeding Controlled with Pressure -Offloading No -Treatment Response Procedure Not Tolerated Well #3 left posterior leg -Time 16:45 -Correct Patient Yes -Correct Side, Site, Position Yes -Correct Procedure Yes -Procedure Performed Yes -Type of Procedure Debridement -Clinical Debridement Subcutaneous -Post Debridement Size (cm) - Length 0.5 -Post Debridement Size (cm) - Width 0.7 -Post Debridement Size (cm) - Depth 0.2 -Total Square Cm 0.35 -Wound/Ulcer Outcome Not Healed -Ulcer Cleansing Not Cleansed -Foul Odor after Cleansing No -Bioengineered Tissue No -Topical Lidocaine (%) -Lidocaine (ml) -Bleeding Controlled with NA -Offloading No -Treatment Response Procedure Tolerated Well #2 left lateral leg -Time 16:47 -Correct Patient Yes -Correct Side, Site, Position Yes -Correct Procedure Yes -Procedure Performed Yes -Type of Procedure Debridement -Clinical Debridement Subcutaneous -Post Debridement Size (cm) - Length 0.9 -Post Debridement Size (cm) - Width 1.5 -Post Debridement Size (cm) - Depth 0.1 -Total Square Cm 1.35 -Wound/Ulcer Outcome Not Healed -Ulcer Cleansing Not Cleansed -Foul Odor after Cleansing No -Bioengineered Tissue No -Topical Lidocaine (%) -Lidocaine (ml) -Bleeding Controlled with NA -Offloading No -Treatment Response Procedure Tolerated Well Pain Scale: 0-10 Numeric Is Patient Pain Free? No Wound debrided: Left anterior, posterior, and lateral lower extremity ulcers Laterality: Left Type of Debridement: Excisional debridement Anesthesia Used: 5% Lidocaine Gel Depth: in the subcutaneous layer Percentage of wound debrided: 100 Instrument Used: 5mm curette Tissue Removed: Slough and devitalized tissue Severity: Fat Layer Exposed Amount of bleeding with debridement: Mild Bleeding Controlled with: Pressure Patient tolerated procedure well Assessment/Plan Assessment: Nonhealing ulcers to the left lower extremity, posterior, anterior, and lateral Plan: The patient was seen and examined at the wound center today and was updated on the plan of care. A subcutaneous debridement was performed today. The patient tolerated the procedure with mild discomfort. The patients wound care will consist of: Applying moistened elizabet to left posterior and lateral lower extremity ulcers and Santyl to the left anterior lower extremity ulcer where debridement was limited due to patient's pain. She will use double tubigrips for compression as she is unable to tolerate her compression stockings. Wound cultures were collected prior and showed MRSA and started on a course of doxy. Wound cultures were repeated on 03/30 to the left anterior lower extremity ulcer as patient has had an increase in pain and showed MRSA again, patient started on clindamcin but unable to tolerate d/t diarrhea, therefore on 04/06/18 was placed back on doxycycline x 14 days as patients symptoms were consistent with cellultis as well. Baseline bloodwork essentially within normal limits. Vascular studies showed venous insufficiency and The resting right ankle?brachial index was calculated to be 1.21. The resting left ankle?brachial index was calculated to be 1.14. The patient was referred to Dr. Hadley for consultation and per patient stated that she will be having sclerotherapy done in the future, will request Dr. Hadley's note for continuity of care. Given the patient's delayed wound healing, will apply for grafix PL to ulcerations (still waiting for approval). Patient educated on the importance of diet on wound healing and instructed to increase protein and vitamin C intake. Patient instructed to take Tylenol prior to her next debridement. Discussed red flag symptoms of worsening cellulitis and infection that require urgent medical attention. Patient verbalized understanding. Patient will follow up at wound healing center in one week or sooner if needed. This note was generated with [employer] dictation software. It may contain incorrect words, spelling, and punctuation that were not noted in checking the note before signing. Code Visit [id number]: [id number] Zena subq tissue 20 sq cm/<
== END 2018-04-10 23:59 ==
LOC: WC 16:00
PROVIDERS: Family Provider Internal Medicine; PCP Internal Medicine; Referring Provider Nurse Practitioner Family; Visit Provider Nurse Practitioner Family
DX: L97.822 Non-pressure chronic ulcer of other part of left lower leg with fat layer exposed (principal); R60.0 Localized edema; R09.89 Other specified symptoms and signs involving the circulatory and respiratory systems; E78.5 Hyperlipidemia, unspecified; I10 Essential (primary) hypertension; L97.821 Non-pressure chronic ulcer of other part of left lower leg limited to breakdown of skin; Z86.14 Personal history of Methicillin resistant Staphylococcus aureus infection
CPT/HCPCS: 11042; 87070; 87075; 87077; 87186; 87205

== ENCOUNTER 2018-05-11 15:45 | Outpatient (RCR) | payer MEDICARE, OTHER, SELFPAY ==
[2018-04-11 01:14] VITALS: BP 140/87; PULSE 96; RESP 18; TEMP 36
[2018-04-13 16:26] VITALS: BP 130/89; PULSE 76; RESP 18; TEMP 35.8; BMI 35.4
--- NOTE | 2018-04-13 17:24 | PCM.WC.PN ---
(1) Venous stasis ulcer with varicose veins of left lower extremity Status: Acute Current Visit: Yes Code(s): I83.029 - Varicose veins of left lower extremity with ulcer of unspecified site; L97.929 - Non-pressure chronic ulcer of unspecified part of left lower leg with unspecified severity Comment: x 3 (2) PVD (peripheral vascular disease) Status: Acute Current Visit: Yes Code(s): I73.9 - Peripheral vascular disease, unspecified (3) Cellulitis of left lower extremity Status: Acute Current Visit: Yes Code(s): L03.116 - Cellulitis of left lower limb (4) Depression Status: Acute Current Visit: No Code(s): F32.9 - Major depressive disorder, single episode, unspecified (5) Hyperlipidemia Status: Acute Current Visit: No Code(s): E78.5 - Hyperlipidemia, unspecified (6) MRSA cellulitis Status: Acute Current Visit: Yes Code(s): L03.90 - Cellulitis, unspecified; B95.62 - Methicillin resistant Staphylococcus aureus infection as the cause of diseases classified elsewhere (7) Bilateral lower extremity edema Status: Chronic Current Visit: Yes Code(s): R60.0 - Localized edema (8) Decreased dorsalis pedis pulse Status: Chronic Current Visit: Yes Code(s): R09.89 - Other specified symptoms and signs involving the circulatory and respiratory systems Type of Wound Date of Service: 04/13/18 Chief Complaint: Nonhealing ulcers to the left lower extremity times 3 months History of Wound: This is a 62-year-old white female who presents to the wound healing center today with complaints of 3 lower extremity ulcers times 3 months. She states that these ulcerations occurred when she hit her left lower extremity on a laundry cart 3 months ago. She states that she typically wears compression stockings and that for wound care she has been using Aquacel extra that she ordered online. She denies any signs of infection at this time, though she does state that the ulcerations are tender and draining serosanguineous fluid. She denies any fever, chills, nausea, vomiting, shortness of breath, chest pain or pressure, syncope or presyncopal episodes. She denies any other aggravating or relieving factors. She has been seen in 2013 here for nonhealing wounds of the lower extremity as well. Progress of Wound: Slow improvement, delayed wound healing therefore will reapply for Grafix now that patient has a new insurance and patient's ulcerations are considered venous leg ulcers, since starting the antibiotic for her MRSA cellulitis, the pain and redness has improved to the left anterior ulcer, denies any purulent drainage has been utilizing the santyl and Elizabet well. Did state that she followed up with Dr. Hadley who recommended sclerotherapy, will request records for continuity of care - Physical Exam Vital Signs Temp Pulse Resp BP 96.4 F L 76 18 130/89 H 04/13/18 16:26 04/13/18 16:26 04/13/18 16:26 04/13/18 16:26 General: Alert, Oriented x3, Cooperative, No apparent distress HEENT: Atraumatic Lungs: Clear to auscultation Cardiovascular: Regular rate Abdomen: Obese Extremities: No clubbing, No cyanosis, Diminished Peripheral Pulses, Edema - +1 bilateral lower extremity edema with varicose veins present left lower extremities Skin: Ulcer/ Wound - Venous leg ulcers present left lower extremity with adherent slough, surrounding erythema is resolving, no warmth, tenderness still present to left anterior lower extremity ulcer Wound Measurements and Assessment WC - Nurse 1 - General Ulcer Measurement Start: 04/13/18 16:25 Freq: Status: Active Protocol: Activity Type Activity Date Activity User E-Sign Co-Sign Detail Recorded Client Recorded Date Recorded By Document 04/13/18 16:26 DV [id number] 04/13/18 16:32 DV 04/13/18 16:26 Wound Center Nurse 1 [Ulcer Assessment] #4 left anterior jain -Combined with other wound No -Current Size (cm) - Length 2.1 -Current Size (cm) - Width 2.0 -Current Size (cm) - Depth 0.1 -Total Square Cm 4.20 -Photo Taken No -Epithelialization None Present -Tunneling No -Undermining/Tunneling No -Circular Undermining No -Classification - Thickness Full Thickness without Exposed Support Structure -Exudate Amt Small (1-33%) -Exudate Type Serosanguineous -Wound Margin Flat & Intact -Granulation Amt None Present (0 %) -Granulation Quality N/A -Slough/Fibrin Yes -Necrosis Amt Large (67-100%) -Necrotic Tissue Type Adherent Slough -Structure Exposed None/Limited to Skin Breakdown -Texture (Patricia-wound Skin Appearance) Assessed Localized Edema Scarring -Moisture (Patricia-wound Skin Appearance Assessed ) Dry/Scaly -Color (Patricia-wound Skin Appearance) Assessed Mottled -Temperature (Patricia-wound Skin No Abnormality Appearance) (Pt Warm) -Tenderness on Palpation (Patricia-wound No Skin Appearance) -Ulcer Cleansing Rinsed/ Irrigated with Saline -Foul Odor after Cleansing No -Anesthetic Used 5% Lidocaine Gel #3 left posterior leg -Combined with other wound No -Current Size (cm) - Length 0.1 -Current Size (cm) - Width 0.1 -Current Size (cm) - Depth 0.1 -Total Square Cm 0.01 -Photo Taken No -Epithelialization Small 1-33% -Tunneling No -Undermining/Tunneling No -Circular Undermining No -Classification - Thickness Full Thickness without Exposed Support Structure -Exudate Amt None Present (0 %) -Wound Margin Flat & Intact -Granulation Amt None Present (0 %) -Granulation Quality N/A -Necrosis Amt Small (1-33%) -Necrotic Tissue Type Adherent Slough -Structure Exposed None/Limited to Skin Breakdown -Texture (Patricia-wound Skin Appearance) No Abnormality Assessed -Moisture (Patricia-wound Skin Appearance No Abnormality ) Assessed -Color (Patricia-wound Skin Appearance) No Abnormality Assessed -Ulcer Cleansing Rinsed/ Irrigated with Saline -Foul Odor after Cleansing No -Anesthetic Used 4% Lidocaine Solution #2 left lateral leg -Combined with other wound No -Current Size (cm) - Length 0.7 -Current Size (cm) - Width 1.0 -Current Size (cm) - Depth 0.1 -Total Square Cm 0.70 -Photo Taken No -Epithelialization Small 1-33% -Tunneling No -Undermining/Tunneling No -Circular Undermining No -Classification - Thickness Full Thickness without Exposed Support Structure -Exudate Amt Small (1-33%) -Exudate Type Serous -Wound Margin Flat & Intact -Granulation Amt Small (1-33%) -Granulation Quality Red -Slough/Fibrin Yes -Necrosis Amt Small (1-33%) -Necrotic Tissue Type Adherent Slough -Structure Exposed None/Limited to Skin Breakdown -Texture (Patricia-wound Skin Appearance) Assessed Scarring -Moisture (Patricia-wound Skin Appearance Assessed ) Weeping -Color (Patricia-wound Skin Appearance) No Abnormality Assessed -Temperature (Patricia-wound Skin No Abnormality Appearance) (Pt Warm) -Ulcer Cleansing Rinsed/ Irrigated with Saline -Foul Odor after Cleansing No -Anesthetic Used 5% Lidocaine Gel [Edema Assessment] -Lower Limb Edema Present No WC - Nurse 2 - General Ulcer CM Notes Start: 04/13/18 16:25 Freq: Status: Active Protocol: Activity Type Activity Date Activity User E-Sign Co-Sign Detail Recorded Client Recorded Date Recorded By Document 04/13/18 16:44 [id number] 04/13/18 16:49 04/13/18 16:44 Wound Center Nurse 2 [Procedure/Treatment] #4 left anterior jain -Time 16:45 -Correct Patient Yes -Correct Side, Site, Position Yes -Correct Procedure Yes -Procedure Performed Yes -Type of Procedure Debridement -Clinical Debridement Subcutaneous -Post Debridement Size (cm) - Length 2.1 -Post Debridement Size (cm) - Width 1.8 -Post Debridement Size (cm) - Depth 0.1 -Total Square Cm 3.78 -Wound/Ulcer Outcome Not Healed -Foul Odor after Cleansing No -Bioengineered Tissue No -Bleeding Controlled with Pressure -Offloading No -Treatment Response Procedure Tolerated Well #3 left posterior leg -Time 16:45 -Correct Patient Yes -Correct Side, Site, Position Yes -Correct Procedure Yes -Procedure Performed Yes -Type of Procedure Debridement -Clinical Debridement Subcutaneous -Post Debridement Size (cm) - Length 0.4 -Post Debridement Size (cm) - Width 0.4 -Post Debridement Size (cm) - Depth 0.1 -Total Square Cm 0.16 -Wound/Ulcer Outcome Not Healed -Ulcer Cleansing Not Cleansed -Foul Odor after Cleansing No -Bioengineered Tissue No -Bleeding Controlled with Pressure -Offloading No -Treatment Response Procedure Tolerated Well #2 left lateral leg -Time 16:45 -Correct Patient Yes -Correct Side, Site, Position Yes -Correct Procedure Yes -Procedure Performed Yes -Type of Procedure Debridement -Clinical Debridement Subcutaneous -Post Debridement Size (cm) - Length 0.7 -Post Debridement Size (cm) - Width 1.1 -Post Debridement Size (cm) - Depth 0.1 -Total Square Cm 0.77 -Wound/Ulcer Outcome Not Healed -Ulcer Cleansing Not Cleansed -Foul Odor after Cleansing No -Bioengineered Tissue No -Bleeding Controlled with Pressure -Offloading No -Treatment Response Procedure Tolerated Well [See Physician Procedure note for Specifics] Pain Scale: 0-10 Numeric [Pain] -Is Patient Pain Free? Yes Musculoskeletal: No Tenderness to Palpation of Joints or Extremities Neurological: Neuro grossly intact Psych/Mental Status: Normal Affect, Appropriate, Alert and oriented to time, place, person, mood and affect Debridement Note Post-Debridement Measurements/Treatment WC - Nurse 2 - General Ulcer CM Notes Start: 04/13/18 16:25 Freq: Status: Active Protocol: Activity Type Activity Date Activity User E-Sign Co-Sign Detail Recorded Client Recorded Date Recorded By Document 04/13/18 16:44 [id number] 04/13/18 16:49 CS 04/13/18 16:44 Wound Center Nurse 2 #4 left anterior jain -Time 16:45 -Correct Patient Yes -Correct Side, Site, Position Yes -Correct Procedure Yes -Procedure Performed Yes -Type of Procedure Debridement -Clinical Debridement Subcutaneous -Post Debridement Size (cm) - Length 2.1 -Post Debridement Size (cm) - Width 1.8 -Post Debridement Size (cm) - Depth 0.1 -Total Square Cm 3.78 -Wound/Ulcer Outcome Not Healed -Foul Odor after Cleansing No -Bioengineered Tissue No -Bleeding Controlled with Pressure -Offloading No -Treatment Response Procedure Tolerated Well #3 left posterior leg -Time 16:45 -Correct Patient Yes -Correct Side, Site, Position Yes -Correct Procedure Yes -Procedure Performed Yes -Type of Procedure Debridement -Clinical Debridement Subcutaneous -Post Debridement Size (cm) - Length 0.4 -Post Debridement Size (cm) - Width 0.4 -Post Debridement Size (cm) - Depth 0.1 -Total Square Cm 0.16 -Wound/Ulcer Outcome Not Healed -Ulcer Cleansing Not Cleansed -Foul Odor after Cleansing No -Bioengineered Tissue No -Bleeding Controlled with Pressure -Offloading No -Treatment Response Procedure Tolerated Well #2 left lateral leg -Time 16:45 -Correct Patient Yes -Correct Side, Site, Position Yes -Correct Procedure Yes -Procedure Performed Yes -Type of Procedure Debridement -Clinical Debridement Subcutaneous -Post Debridement Size (cm) - Length 0.7 -Post Debridement Size (cm) - Width 1.1 -Post Debridement Size (cm) - Depth 0.1 -Total Square Cm 0.77 -Wound/Ulcer Outcome Not Healed -Ulcer Cleansing Not Cleansed -Foul Odor after Cleansing No -Bioengineered Tissue No -Bleeding Controlled with Pressure -Offloading No -Treatment Response Procedure Tolerated Well Pain Scale: 0-10 Numeric Is Patient Pain Free? Yes Wound debrided: Left anterior posterior and lateral venous leg ulcers Laterality: Left Type of Debridement: Excisional debridement Anesthesia Used: 5% Lidocaine Gel Depth: in the subcutaneous layer Percentage of wound debrided: 100 Instrument Used: 3mm curette, 7mm curette Tissue Removed: Slough and devitalized tissue Severity: Fat Layer Exposed Amount of bleeding with debridement: Mild Bleeding Controlled with: Pressure Patient tolerated procedure well Assessment/Plan Active Problems Decreased dorsalis pedis pulse (Chronic) Bilateral lower extremity edema (Chronic) MRSA cellulitis (Acute) Cellulitis of left lower extremity (Acute) PVD (peripheral vascular disease) (Acute) Venous stasis ulcer with varicose veins of left lower extremity (Acute) x 3 Assessment: Nonhealing ulcers to the left lower extremity, posterior, anterior, and lateral Plan: The patient was seen and examined at the wound center today and was updated on the plan of care. A subcutaneous debridement was performed today. The patient tolerated the procedure well. The patients wound care will consist of: Applying elizabet to left posterior and lateral lower extremity ulcers and Santyl to the left anterior lower extremity ulcer where debridement was limited due to patient's pain. She will continue with her compression stockings. Wound cultures were collected prior and showed MRSA and started on a course of doxy. Wound cultures were done to the left anterior lower extremity ulcer as patient has had an increase in pain. Baseline bloodwork essentially within normal limits. Vascular studies showed venous insufficiency and The resting right ankle?brachial index was calculated to be 1.21. The resting left ankle?brachial index was calculated to be 1.14. The patient was referred to Dr. Hadley for consultation and per patient stated that she will be having sclerotherapy done in the future, will request Dr. Hadley's note for continuity of care. Given the patient's delayed wound healing, will apply for grafix PL to venous ulcerations (still waiting for approval). Patient educated on the importance of diet on wound healing and instructed to increase protein and vitamin C intake. Patient instructed to take Tylenol prior to her next debridement. Discussed red flag symptoms of cellulitis and infection that require urgent medical attention. Patient verbalized understanding. Patient will follow up at wound healing center in one week or sooner if needed. This note was generated with [employer] dictation software. It may contain incorrect words, spelling, and punctuation that were not noted in checking the note before signing. Code Visit [id number]: [id number] Zena subq tissue 20 sq cm/<
[2018-04-20 15:47] VITALS: BP 158/79; PULSE 82; RESP 16; TEMP 37.1; BMI 35.4
--- NOTE | 2018-04-20 17:04 | PCM.WC.PN ---
(1) Venous stasis ulcer with varicose veins of left lower extremity Status: Acute Current Visit: Yes Code(s): I83.029 - Varicose veins of left lower extremity with ulcer of unspecified site; L97.929 - Non-pressure chronic ulcer of unspecified part of left lower leg with unspecified severity Comment: x 3 (2) PVD (peripheral vascular disease) Status: Acute Current Visit: Yes Code(s): I73.9 - Peripheral vascular disease, unspecified (3) Cellulitis of left lower extremity Status: Acute Current Visit: Yes Code(s): L03.116 - Cellulitis of left lower limb (4) Depression Status: Acute Current Visit: No Code(s): F32.9 - Major depressive disorder, single episode, unspecified (5) Hyperlipidemia Status: Acute Current Visit: No Code(s): E78.5 - Hyperlipidemia, unspecified (6) MRSA cellulitis Status: Acute Current Visit: Yes Code(s): L03.90 - Cellulitis, unspecified; B95.62 - Methicillin resistant Staphylococcus aureus infection as the cause of diseases classified elsewhere (7) Bilateral lower extremity edema Status: Chronic Current Visit: Yes Code(s): R60.0 - Localized edema (8) Decreased dorsalis pedis pulse Status: Chronic Current Visit: Yes Code(s): R09.89 - Other specified symptoms and signs involving the circulatory and respiratory systems Type of Wound Date of Service: 04/20/18 Chief Complaint: Nonhealing ulcers to the left lower extremity times 3 months History of Wound: This is a 62-year-old white female who presents to the wound healing center today with complaints of 3 lower extremity ulcers times 3 months. She states that these ulcerations occurred when she hit her left lower extremity on a laundry cart 3 months ago. She states that she typically wears compression stockings and that for wound care she has been using Aquacel extra that she ordered online. She denies any signs of infection at this time, though she does state that the ulcerations are tender and draining serosanguineous fluid. She denies any fever, chills, nausea, vomiting, shortness of breath, chest pain or pressure, syncope or presyncopal episodes. She denies any other aggravating or relieving factors. She has been seen in 2013 here for nonhealing wounds of the lower extremity as well. Progress of Wound: Slow improvement, delayed wound healing therefore will reapply for Grafix now that patient has a new insurance and patient's ulcerations are considered venous leg ulcers, since starting the antibiotic for her MRSA cellulitis, the pain and redness has improved to the left anterior ulcer, denies any purulent drainage has been utilizing the santyl and Elizabet well. Did state that she followed up with Dr. Hadley who recommended sclerotherapy, will request records for continuity of care - Physical Exam Vital Signs Temp Pulse Resp BP 98.7 F 82 16 158/79 H 04/20/18 15:47 04/20/18 15:47 04/20/18 15:47 04/20/18 15:47 General: Alert, Oriented x3, Cooperative, No apparent distress HEENT: Atraumatic Oral: Moist Mucosa Lungs: Clear to auscultation Cardiovascular: Regular rate Abdomen: Soft, Non Tender, Obese Extremities: No clubbing, No cyanosis, Diminished Peripheral Pulses, Edema - Generalized 1+ edema bilateral lower extremities pitting, - - Large varicose veins present left lower extremity Skin: Ulcer/ Wound - Ulcers to left lower extremity with adherent slough, large amount of adherent slough to left anterior lower extremity ulceration and debridement limited due to pain, surrounding chronic skin changes, no warmth or obvious signs of infection at this time Wound Measurements and Assessment WC - Nurse 1 - General Ulcer Measurement Start: 04/13/18 16:25 Freq: Status: Active Protocol: Activity Type Activity Date Activity User E-Sign Co-Sign Detail Recorded Client Recorded Date Recorded By Document 04/20/18 15:47 WI [id number] 04/20/18 15:53 WI 04/20/18 15:47 Wound Center Nurse 1 [Ulcer Assessment] #4 left anterior jain -Combined with other wound No -Current Size (cm) - Length 1.9 -Current Size (cm) - Width 1.9 -Current Size (cm) - Depth 0.1 -Total Square Cm 3.61 -Photo Taken No -Tunneling No -Undermining/Tunneling No -Circular Undermining No -Exudate Amt Small -Exudate Type Serosanguineous -Wound Margin Flat & Intact -Granulation Amt Small (1-33%) -Granulation Quality [place] -Necrosis Amt Large (67-100%) -Necrotic Tissue Type Adherent Slough -Texture (Patricia-wound Skin Appearance) Assessed -Moisture (Patricia-wound Skin Appearance Assessed ) Maceration Weeping -Color (Patricia-wound Skin Appearance) Assessed -Temperature (Patricia-wound Skin No Abnormality Appearance) (Pt Warm) -Tenderness on Palpation (Patricia-wound No Skin Appearance) -Ulcer Cleansing Rinsed/ Irrigated with Saline -Foul Odor after Cleansing No -Anesthetic Used 4% Lidocaine Solution #3 left posterior leg -Combined with other wound No -Current Size (cm) - Length 0.4 -Current Size (cm) - Width 0.4 -Current Size (cm) - Depth 0.1 -Total Square Cm 0.16 -Photo Taken No -Tunneling No -Undermining/Tunneling No -Circular Undermining No -Exudate Amt Small -Exudate Type Serosanguineous -Wound Margin Flat & Intact -Granulation Amt None Present (0 %) -Necrosis Amt Large (67-100%) -Necrotic Tissue Type Adherent Slough -Texture (Patricia-wound Skin Appearance) Assessed -Moisture (Patricia-wound Skin Appearance Assessed ) -Color (Patricia-wound Skin Appearance) Assessed Hemosiderin Staining -Temperature (Patricia-wound Skin No Abnormality Appearance) (Pt Warm) -Tenderness on Palpation (Patricia-wound No Skin Appearance) -Ulcer Cleansing Rinsed/ Irrigated with Saline -Foul Odor after Cleansing No -Anesthetic Used 4% Lidocaine Solution #2 left lateral leg -Combined with other wound No -Current Size (cm) - Length 0.7 -Current Size (cm) - Width 0.1 -Current Size (cm) - Depth 0.1 -Total Square Cm 0.07 -Photo Taken No -Tunneling No -Undermining/Tunneling No -Circular Undermining No -Exudate Amt None Present -Wound Margin Flat & Intact -Granulation Amt Small (1-33%) -Granulation Quality [place] -Necrosis Amt Large (67-100%) -Necrotic Tissue Type Adherent Slough -Texture (Patricia-wound Skin Appearance) Assessed -Moisture (Patricia-wound Skin Appearance Assessed ) Maceration -Color (Patricia-wound Skin Appearance) Assessed Hemosiderin Staining -Temperature (Patricia-wound Skin No Abnormality Appearance) (Pt Warm) -Tenderness on Palpation (Patricia-wound No Skin Appearance) -Ulcer Cleansing Rinsed/ Irrigated with Saline -Foul Odor after Cleansing No -Anesthetic Used 4% Lidocaine Solution [Edema Assessment] -Left Calf (cm) 43.8 -Left Ankle (cm) 25.0 WC - Nurse 2 - General Ulcer CM Notes Start: 04/13/18 16:25 Freq: Status: Active Protocol: Activity Type Activity Date Activity User E-Sign Co-Sign Detail Recorded Client Recorded Date Recorded By Document 04/20/18 16:15 DV [id number] 04/20/18 16:17 DV 04/20/18 16:15 Wound Center Nurse 2 [Procedure/Treatment] #4 left anterior jain -Time 16:15 -Correct Patient Yes -Correct Side, Site, Position Yes -Correct Procedure Yes -Procedure Performed Yes -Type of Procedure Debridement -Clinical Debridement Subcutaneous -Post Debridement Size (cm) - Length 1.9 -Post Debridement Size (cm) - Width 1.8 -Post Debridement Size (cm) - Depth 0.1 -Total Square Cm 3.42 -Wound/Ulcer Outcome Not Healed -Ulcer Cleansing Rinsed/ Irrigated with Saline -Foul Odor after Cleansing No -Bioengineered Tissue No -Bleeding Controlled with Pressure -Offloading No -Treatment Response Procedure Tolerated Well #3 left posterior leg -Time 16:16 -Correct Patient Yes -Correct Side, Site, Position Yes -Correct Procedure Yes -Procedure Performed Yes -Type of Procedure Debridement -Clinical Debridement Subcutaneous -Post Debridement Size (cm) - Length 0.5 -Post Debridement Size (cm) - Width 1.1 -Post Debridement Size (cm) - Depth 0.1 -Total Square Cm 0.55 -Wound/Ulcer Outcome Not Healed -Ulcer Cleansing Rinsed/ Irrigated with Saline -Foul Odor after Cleansing No -Bioengineered Tissue No -Bleeding Controlled with Pressure -Offloading No -Treatment Response Procedure Tolerated Well #2 left lateral leg -Time 16:16 -Correct Patient Yes -Correct Side, Site, Position Yes -Correct Procedure Yes -Procedure Performed Yes -Type of Procedure Debridement -Clinical Debridement Subcutaneous -Post Debridement Size (cm) - Length 0.3 -Post Debridement Size (cm) - Width 0.2 -Post Debridement Size (cm) - Depth 0.1 -Total Square Cm 0.06 -Wound/Ulcer Outcome Not Healed -Ulcer Cleansing Rinsed/ Irrigated with Saline -Foul Odor after Cleansing No -Bioengineered Tissue No -Bleeding Controlled with Pressure -Offloading No -Treatment Response Procedure Tolerated Well [See Physician Procedure note for Specifics] Pain Scale: 0-10 Numeric [Pain] -Is Patient Pain Free? Yes Musculoskeletal: No Tenderness to Palpation of Joints or Extremities Neurological: Neuro grossly intact Psych/Mental Status: Normal Affect, Appropriate, Alert and oriented to time, place, person, mood and affect Debridement Note Post-Debridement Measurements/Treatment WC - Nurse 2 - General Ulcer CM Notes Start: 04/13/18 16:25 Freq: Status: Active Protocol: Activity Type Activity Date Activity User E-Sign Co-Sign Detail Recorded Client Recorded Date Recorded By Document 04/13/18 16:44 CS [id number] 04/13/18 16:49 CS Document 04/20/18 16:15 DV [id number] 04/20/18 16:17 DV 04/13/18 04/20/18 16:44 16:15 Wound Center Nurse 2 #4 left anterior jain -Time 16:45 16:15 -Correct Patient Yes Yes -Correct Side, Site, Position Yes Yes -Correct Procedure Yes Yes -Procedure Performed Yes Yes -Type of Procedure Debridement Debridement -Clinical Debridement Subcutaneous Subcutaneous -Post Debridement Size (cm) - Length 2.1 1.9 -Post Debridement Size (cm) - Width 1.8 1.8 -Post Debridement Size (cm) - Depth 0.1 0.1 -Total Square Cm 3.78 3.42 -Wound/Ulcer Outcome Not Healed Not Healed -Ulcer Cleansing Rinsed/ Irrigated with Saline -Foul Odor after Cleansing No No -Bioengineered Tissue No No -Bleeding Controlled with Pressure Pressure -Offloading No No -Treatment Response Procedure Procedure Tolerated Well Tolerated Well #3 left posterior leg -Time 16:45 16:16 -Correct Patient Yes Yes -Correct Side, Site, Position Yes Yes -Correct Procedure Yes Yes -Procedure Performed Yes Yes -Type of Procedure Debridement Debridement -Clinical Debridement Subcutaneous Subcutaneous -Post Debridement Size (cm) - Length 0.4 0.5 -Post Debridement Size (cm) - Width 0.4 1.1 -Post Debridement Size (cm) - Depth 0.1 0.1 -Total Square Cm 0.16 0.55 -Wound/Ulcer Outcome Not Healed Not Healed -Ulcer Cleansing Not Cleansed Rinsed/ Irrigated with Saline -Foul Odor after Cleansing No No -Bioengineered Tissue No No -Bleeding Controlled with Pressure Pressure -Offloading No No -Treatment Response Procedure Procedure Tolerated Well Tolerated Well #2 left lateral leg -Time 16:45 16:16 -Correct Patient Yes Yes -Correct Side, Site, Position Yes Yes -Correct Procedure Yes Yes -Procedure Performed Yes Yes -Type of Procedure Debridement Debridement -Clinical Debridement Subcutaneous Subcutaneous -Post Debridement Size (cm) - Length 0.7 0.3 -Post Debridement Size (cm) - Width 1.1 0.2 -Post Debridement Size (cm) - Depth 0.1 0.1 -Total Square Cm 0.77 0.06 -Wound/Ulcer Outcome Not Healed Not Healed -Ulcer Cleansing Not Cleansed Rinsed/ Irrigated with Saline -Foul Odor after Cleansing No No -Bioengineered Tissue No No -Bleeding Controlled with Pressure Pressure -Offloading No No -Treatment Response Procedure Procedure Tolerated Well Tolerated Well Pain Scale: 0-10 Numeric Is Patient Pain Free? Yes Yes Wound debrided: Left anterior, posterior, and lateral lower extremity ulcers venous Type of Debridement: Excisional debridement Anesthesia Used: 5% Lidocaine Gel Depth: in the subcutaneous layer Percentage of wound debrided: 100 Instrument Used: 5mm curette Tissue Removed: Slough and devitalized tissue Severity: Fat Layer Exposed Amount of bleeding with debridement: Mild Bleeding Controlled with: Pressure Patient tolerated procedure well Assessment/Plan Active Problems Decreased dorsalis pedis pulse (Chronic) Bilateral lower extremity edema (Chronic) MRSA cellulitis (Acute) Cellulitis of left lower extremity (Acute) PVD (peripheral vascular disease) (Acute) Venous stasis ulcer with varicose veins of left lower extremity (Acute) x 3 Assessment: Nonhealing ulcers to the left lower extremity, posterior, anterior, and lateral Plan: The patient was seen and examined at the wound center today and was updated on the plan of care. A subcutaneous debridement was performed today. The patient tolerated the procedure well. The patients wound care will consist of: Applying elizabet to left posterior and lateral lower extremity ulcers and Santyl to the left anterior lower extremity ulcer where debridement was limited due to patient's pain. She will continue with her compression stockings. Wound cultures were collected prior and showed MRSA and started on a course of doxy. Wound cultures were done to the left anterior lower extremity ulcer as patient has had an increase in pain. Baseline bloodwork essentially within normal limits. Vascular studies showed venous insufficiency and The resting right ankle?brachial index was calculated to be 1.21. The resting left ankle?brachial index was calculated to be 1.14. The patient was referred to Dr. Hadley for consultation and per patient stated that she will be having sclerotherapy done in the future, will request Dr. Hadley's note for continuity of care. Given the patient's delayed wound healing, will apply for grafix PL to venous ulcerations (still waiting for approval). Patient educated on the importance of diet on wound healing and instructed to increase protein and vitamin C intake. Patient instructed to take Tylenol prior to her next debridement. Discussed red flag symptoms of cellulitis and infection that require urgent medical attention. Patient verbalized understanding. Patient will follow up at wound healing center in one week or sooner if needed. This note was generated with [employer] dictation software. It may contain incorrect words, spelling, and punctuation that were not noted in checking the note before signing. Code Visit [id number]: [id number] Zena subq tissue 20 sq cm/<
[2018-04-27 15:46] VITALS: BP 150/83; PULSE 88; RESP 16; TEMP 37; BMI 35.4
--- NOTE | 2018-04-27 16:28 | PN.PCM_ITS ---
(1) Venous stasis ulcer with varicose veins of left lower extremity Status: Acute Current Visit: Yes Code(s): I83.029 - Varicose veins of left lower extremity with ulcer of unspecified site; L97.929 - Non-pressure chronic ulcer of unspecified part of left lower leg with unspecified severity Comment: x 3 anterior, posterior, and lateral left lower extremity (2) PVD (peripheral vascular disease) Status: Acute Current Visit: Yes Code(s): I73.9 - Peripheral vascular disease, unspecified (3) Cellulitis of left lower extremity Status: Acute Current Visit: Yes Code(s): L03.116 - Cellulitis of left lower limb (4) Depression Status: Acute Current Visit: No Code(s): F32.9 - Major depressive disorder, single episode, unspecified (5) Hyperlipidemia Status: Acute Current Visit: No Code(s): E78.5 - Hyperlipidemia, unspecified (6) MRSA cellulitis Status: Acute Current Visit: Yes Code(s): L03.90 - Cellulitis, unspecified; B95.62 - Methicillin resistant Staphylococcus aureus infection as the cause of diseases classified elsewhere (7) Bilateral lower extremity edema Status: Chronic Current Visit: Yes Code(s): R60.0 - Localized edema (8) Decreased dorsalis pedis pulse Status: Chronic Current Visit: Yes Code(s): R09.89 - Other specified symptoms and signs involving the circulatory and respiratory systems Type of Wound Date of Service: 04/27/18 Chief Complaint: Nonhealing ulcers to the left lower extremity times 3 months History of Wound: This is a 62-year-old white female who presents to the wound healing center today with complaints of 3 lower extremity ulcers times 3 months. She states that these ulcerations occurred when she hit her left lower extremity on a laundry cart 3 months ago. She states that she typically wears compression stockings and that for wound care she has been using Aquacel extra that she ordered online. She denies any signs of infection at this time, though she does state that the ulcerations are tender and draining serosanguineous fluid. She denies any fever, chills, nausea, vomiting, shortness of breath, chest pain or pressure, syncope or presyncopal episodes. She denies any other aggravating or relieving factors. She has been seen in 2013 here for nonhealing wounds of the lower extremity as well. Progress of Wound: Slow improvement, delayed wound healing therefore will reapply for Grafix and epifix now that patient has a new insurance and patient's ulcerations are considered venous leg ulcers, since completing the antibiotic for her MRSA cellulitis, the pain and redness has improved to the left anterior ulcer however now a cluster ulcer and therefore size increased, denies any purulent drainage has been utilizing the santyl and Elizabet well. Did state that she followed up with Dr. Hadley who recommended sclerotherapy which will be done on 05/15/18, will request records for continuity of care - Physical Exam Vital Signs Temp Pulse Resp BP 98.6 F 88 16 150/83 H 04/27/18 15:46 04/27/18 15:46 04/27/18 15:46 04/27/18 15:46 General: Alert, Oriented x3, Cooperative, No apparent distress HEENT: Atraumatic Oral: Moist Mucosa Lungs: Clear to auscultation, Normal air movement Cardiovascular: Regular rate, Regular Rhythm Abdomen: Soft, Non Tender, Obese Extremities: No clubbing, No cyanosis, Diminished Peripheral Pulses, Edema Skin: Ulcer/ Wound - left anterior, posterior and lateral lower extremity ulcers with adherhant slough, no signs of infection at this time Wound Measurements and Assessment WC - Nurse 1 - General Ulcer Measurement Start: 04/13/18 16:25 Freq: Status: Active Protocol: Activity Type Activity Date Activity User E-Sign Co-Sign Detail Recorded Client Recorded Date Recorded By Document 04/27/18 15:46 [facility] [id number] 04/27/18 15:54 [facility] 04/27/18 15:46 Wound Center Nurse 1 [Ulcer Assessment] #4 left anterior jain cluster -Combined with other wound No -Current Size (cm) - Length 2.0 -Current Size (cm) - Width 1.6 -Current Size (cm) - Depth 0.1 -Total Square Cm 3.20 -Photo Taken No -Epithelialization Small 1-33% -Tunneling No -Undermining/Tunneling No -Circular Undermining No -Exudate Amt Small -Exudate Type Serosanguineous -Wound Margin Flat & Intact -Granulation Amt Medium (34-66%) -Granulation Quality Hyper- granulation [place] -Slough/Fibrin Yes -Necrosis Amt Small (1-33%) -Necrotic Tissue Type Adherent Slough -Texture (Patricia-wound Skin Appearance) Scarring -Moisture (Patricia-wound Skin Appearance Assessed ) Dry/Scaly -Color (Patricia-wound Skin Appearance) Assessed -Temperature (Patricia-wound Skin No Abnormality Appearance) (Pt Warm) -Tenderness on Palpation (Patricia-wound No Skin Appearance) -Ulcer Cleansing Rinsed/ Irrigated with Saline -Foul Odor after Cleansing No -Anesthetic Used 4% Lidocaine Solution #3 left posterior leg -Combined with other wound No -Current Size (cm) - Length 0.9 -Current Size (cm) - Width 0.7 -Current Size (cm) - Depth 0.1 -Total Square Cm 0.63 -Photo Taken No -Epithelialization None Present -Tunneling No -Undermining/Tunneling No -Circular Undermining No -Exudate Amt Small -Exudate Type Serosanguineous -Wound Margin Flat & Intact -Granulation Amt Small (1-33%) -Granulation Quality Red -Slough/Fibrin Yes -Necrosis Amt Large (67-100%) -Necrotic Tissue Type Adherent Slough -Texture (Patricia-wound Skin Appearance) Scarring -Moisture (Patricia-wound Skin Appearance Dry/Scaly ) -Color (Patricia-wound Skin Appearance) Assessed -Temperature (Patricia-wound Skin No Abnormality Appearance) (Pt Warm) -Tenderness on Palpation (Patricia-wound No Skin Appearance) -Ulcer Cleansing Rinsed/ Irrigated with Saline -Foul Odor after Cleansing No -Anesthetic Used 4% Lidocaine Solution #2 left lateral leg -Combined with other wound No -Current Size (cm) - Length 0.4 -Current Size (cm) - Width 0.8 -Current Size (cm) - Depth 0.1 -Total Square Cm 0.32 -Photo Taken No -Epithelialization None Present -Tunneling No -Undermining/Tunneling No -Circular Undermining No -Exudate Amt Small -Exudate Type Serosanguineous -Wound Margin Flat & Intact -Granulation Amt None Present (0 %) -Slough/Fibrin Yes -Necrosis Amt Large (67-100%) -Necrotic Tissue Type Adherent Slough -Texture (Patricia-wound Skin Appearance) Assessed Scarring -Moisture (Patricia-wound Skin Appearance Assessed ) -Color (Patricia-wound Skin Appearance) Assessed -Temperature (Patricia-wound Skin No Abnormality Appearance) (Pt Warm) -Tenderness on Palpation (Patricia-wound No Skin Appearance) -Ulcer Cleansing Rinsed/ Irrigated with Saline -Foul Odor after Cleansing No -Anesthetic Used 4% Lidocaine Solution [Edema Assessment] -Lower Limb Edema Present Yes -Left Calf (cm) 44 -Left Ankle (cm) 24.6 WC - Nurse 2 - General Ulcer CM Notes Start: 04/13/18 16:25 Freq: Status: Active Protocol: Activity Type Activity Date Activity User E-Sign Co-Sign Detail Recorded Client Recorded Date Recorded By Document 04/27/18 16:01 CS [id number] 04/27/18 16:06 CS 04/27/18 16:01 Wound Center Nurse 2 [Procedure/Treatment] #4 left anterior jain cluster -Time 16:02 -Correct Patient Yes -Correct Side, Site, Position Yes -Correct Procedure Yes -Procedure Performed Yes -Type of Procedure Debridement -Clinical Debridement Subcutaneous -Post Debridement Size (cm) - Length 3.1 -Post Debridement Size (cm) - Width 3.1 -Post Debridement Size (cm) - Depth 0.1 -Total Square Cm 9.61 -Wound/Ulcer Outcome Not Healed -Ulcer Cleansing Not Cleansed -Foul Odor after Cleansing No -Bioengineered Tissue No -Bleeding Controlled with NA -Offloading No -Treatment Response Procedure Tolerated Well #3 left posterior leg -Time 16:02 -Correct Patient Yes -Correct Side, Site, Position Yes -Correct Procedure Yes -Procedure Performed Yes -Type of Procedure Debridement -Clinical Debridement Subcutaneous -Post Debridement Size (cm) - Length 0.1 -Post Debridement Size (cm) - Width 0.1 -Post Debridement Size (cm) - Depth 0.1 -Total Square Cm 0.01 -Wound/Ulcer Outcome Not Healed -Ulcer Cleansing Not Cleansed -Foul Odor after Cleansing No -Bioengineered Tissue No -Bleeding Controlled with NA -Offloading No -Treatment Response Procedure Tolerated Well #2 left lateral leg -Time 16:03 -Correct Patient Yes -Correct Side, Site, Position Yes -Correct Procedure Yes -Procedure Performed Yes -Type of Procedure Debridement -Clinical Debridement Subcutaneous -Post Debridement Size (cm) - Length 0.1 -Post Debridement Size (cm) - Width 0.1 -Post Debridement Size (cm) - Depth 0.1 -Total Square Cm 0.01 -Wound/Ulcer Outcome Not Healed -Ulcer Cleansing Not Cleansed -Foul Odor after Cleansing No -Bioengineered Tissue No -Bleeding Controlled with NA -Offloading No -Treatment Response Procedure Tolerated Well [See Physician Procedure note for Specifics] Pain Scale: 0-10 Numeric [Pain] -Is Patient Pain Free? Yes Neurological: Neuro grossly intact Psych/Mental Status: Normal Affect, Appropriate, Alert and oriented to time, place, person, mood and affect Debridement Note Post-Debridement Measurements/Treatment WC - Nurse 2 - General Ulcer CM Notes Start: 04/13/18 16:25 Freq: Status: Active Protocol: Activity Type Activity Date Activity User E-Sign Co-Sign Detail Recorded Client Recorded Date Recorded By Document 04/13/18 16:44 CS [id number] 04/13/18 16:49 CS Document 04/20/18 16:15 DV [id number] 04/20/18 16:17 DV Document 04/27/18 16:01 CS [id number] 04/27/18 16:06 CS 04/13/18 04/20/18 04/27/18 16:44 16:15 16:01 Wound Center Nurse 2 #4 left anterior jain cluster -Time 16:45 16:15 16:02 -Correct Patient Yes Yes Yes -Correct Side, Site, Position Yes Yes Yes -Correct Procedure Yes Yes Yes -Procedure Performed Yes Yes Yes -Type of Procedure Debridement Debridement Debridement -Clinical Debridement Subcutaneous Subcutaneous Subcutaneous -Post Debridement Size (cm) - Length 2.1 1.9 3.1 -Post Debridement Size (cm) - Width 1.8 1.8 3.1 -Post Debridement Size (cm) - Depth 0.1 0.1 0.1 -Total Square Cm 3.78 3.42 9.61 -Wound/Ulcer Outcome Not Healed Not Healed Not Healed -Ulcer Cleansing Rinsed/ Not Cleansed Irrigated with Saline -Foul Odor after Cleansing No No No -Bioengineered Tissue No No No -Bleeding Controlled with Pressure Pressure NA -Offloading No No No -Treatment Response Procedure Procedure Procedure Tolerated Well Tolerated Well Tolerated Well #3 left posterior leg -Time 16:45 16:16 16:02 -Correct Patient Yes Yes Yes -Correct Side, Site, Position Yes Yes Yes -Correct Procedure Yes Yes Yes -Procedure Performed Yes Yes Yes -Type of Procedure Debridement Debridement Debridement -Clinical Debridement Subcutaneous Subcutaneous Subcutaneous -Post Debridement Size (cm) - Length 0.4 0.5 0.1 -Post Debridement Size (cm) - Width 0.4 1.1 0.1 -Post Debridement Size (cm) - Depth 0.1 0.1 0.1 -Total Square Cm 0.16 0.55 0.01 -Wound/Ulcer Outcome Not Healed Not Healed Not Healed -Ulcer Cleansing Not Cleansed Rinsed/ Not Cleansed Irrigated with Saline -Foul Odor after Cleansing No No No -Bioengineered Tissue No No No -Bleeding Controlled with Pressure Pressure NA -Offloading No No No -Treatment Response Procedure Procedure Procedure Tolerated Well Tolerated Well Tolerated Well #2 left lateral leg -Time 16:45 16:16 16:03 -Correct Patient Yes Yes Yes -Correct Side, Site, Position Yes Yes Yes -Correct Procedure Yes Yes Yes -Procedure Performed Yes Yes Yes -Type of Procedure Debridement Debridement Debridement -Clinical Debridement Subcutaneous Subcutaneous Subcutaneous -Post Debridement Size (cm) - Length 0.7 0.3 0.1 -Post Debridement Size (cm) - Width 1.1 0.2 0.1 -Post Debridement Size (cm) - Depth 0.1 0.1 0.1 -Total Square Cm 0.77 0.06 0.01 -Wound/Ulcer Outcome Not Healed Not Healed Not Healed -Ulcer Cleansing Not Cleansed Rinsed/ Not Cleansed Irrigated with Saline -Foul Odor after Cleansing No No No -Bioengineered Tissue No No No -Bleeding Controlled with Pressure Pressure NA -Offloading No No No -Treatment Response Procedure Procedure Procedure Tolerated Well Tolerated Well Tolerated Well Pain Scale: 0-10 Numeric Is Patient Pain Free? Yes Yes Yes Wound debrided: left anterior, posterior, and lateral lower extremity ulcer Laterality: Left Type of Debridement: Excisional debridement Anesthesia Used: 5% Lidocaine Gel Depth: in the subcutaneous layer Percentage of wound debrided: 100 Instrument Used: 5mm curette Tissue Removed: slough and devitalized tissue Severity: Fat Layer Exposed Amount of bleeding with debridement: Mild Bleeding Controlled with: Pressure Patient tolerated procedure well Assessment/Plan Active Problems Decreased dorsalis pedis pulse (Chronic) Bilateral lower extremity edema (Chronic) MRSA cellulitis (Acute) Cellulitis of left lower extremity (Acute) PVD (peripheral vascular disease) (Acute) Venous stasis ulcer with varicose veins of left lower extremity (Acute) x 3 anterior, posterior, and lateral left lower extremity Assessment: Nonhealing ulcers to the left lower extremity, posterior, anterior, and lateral Plan: The patient was seen and examined at the wound center today and was updated on the plan of care. A subcutaneous debridement was performed today. The patient tolerated the procedure well. The patients wound care will consist of: Applying elizabet to left posterior and lateral lower extremity ulcers and Santyl to the left anterior lower extremity ulcer where debridement was limited due to patient's pain. She will continue with her compression stockings. Wound cultures were collected prior and showed MRSA and completed a course of doxy. Baseline bloodwork essentially within normal limits. Vascular studies showed venous insufficiency and The resting right ankle?brachial index was calculated to be 1.21. The resting left ankle?brachial index was calculated to be 1.14. The patient was referred to Dr. Hadley for consultation and per patient stated that she will be having sclerotherapy done in the future, will request Dr. Hadley's note for continuity of care. Given the patient's delayed wound healing, will apply for grafix PL and epifix to venous ulcerations (still waiting for approval). Patient educated on the importance of diet on wound healing and instructed to increase protein and vitamin C intake. Patient instructed to take Tylenol prior to her next debridement. Discussed red flag symptoms of cellulitis and infection that require urgent medical attention. Patient verbalized understanding. Patient will follow up at wound healing center in one week or sooner if needed. This note was generated with [employer] dictation software. It may contain incorrect words, spelling, and punctuation that were not noted in checking the note before signing. Code Visit [id number]: [id number] Zena subq tissue 20 sq cm/<
[2018-05-04 15:48] VITALS: BP 137/95; PULSE 104; RESP 16; TEMP 35.5; BMI 35.4
--- NOTE | 2018-05-04 20:14 | PCM.WC.PN ---
(1) Venous stasis ulcer with varicose veins of left lower extremity Status: Acute Current Visit: Yes Code(s): I83.029 - Varicose veins of left lower extremity with ulcer of unspecified site; L97.929 - Non-pressure chronic ulcer of unspecified part of left lower leg with unspecified severity Comment: x 3 anterior, posterior, and lateral left lower extremity (2) PVD (peripheral vascular disease) Status: Acute Current Visit: Yes Code(s): I73.9 - Peripheral vascular disease, unspecified (3) Cellulitis of left lower extremity Status: Acute Current Visit: Yes Code(s): L03.116 - Cellulitis of left lower limb (4) Depression Status: Acute Current Visit: No Code(s): F32.9 - Major depressive disorder, single episode, unspecified (5) Hyperlipidemia Status: Acute Current Visit: No Code(s): E78.5 - Hyperlipidemia, unspecified (6) MRSA cellulitis Status: Acute Current Visit: Yes Code(s): L03.90 - Cellulitis, unspecified; B95.62 - Methicillin resistant Staphylococcus aureus infection as the cause of diseases classified elsewhere (7) Bilateral lower extremity edema Status: Chronic Current Visit: Yes Code(s): R60.0 - Localized edema (8) Decreased dorsalis pedis pulse Status: Chronic Current Visit: Yes Code(s): R09.89 - Other specified symptoms and signs involving the circulatory and respiratory systems Type of Wound Chief Complaint: Nonhealing ulcers to the left lower extremity times 3 months History of Wound: This is a 62-year-old white female who presents to the wound healing center today with complaints of 3 lower extremity ulcers times 3 months. She states that these ulcerations occurred when she hit her left lower extremity on a laundry cart 3 months ago. She states that she typically wears compression stockings and that for wound care she has been using Aquacel extra that she ordered online. She denies any signs of infection at this time, though she does state that the ulcerations are tender and draining serosanguineous fluid. She denies any fever, chills, nausea, vomiting, shortness of breath, chest pain or pressure, syncope or presyncopal episodes. She denies any other aggravating or relieving factors. She has been seen in 2013 here for nonhealing wounds of the lower extremity as well. Progress of Wound: Slow improvement, delayed wound healing therefore epifix number 1 applied, denies any purulent drainage has been utilizing the santyl and Elizabet well. Did state that she followed up with Dr. Hadley who recommended sclerotherapy which will be done on 05/15/18, will request records for continuity of care - Physical Exam Vital Signs Temp Pulse Resp BP 96 F L 104 H 16 137/95 H 05/04/18 15:48 05/04/18 15:48 05/04/18 15:48 05/04/18 15:48 General: Alert, Oriented x3, Cooperative, No apparent distress HEENT: Atraumatic Lungs: Clear to auscultation Cardiovascular: Regular rate Abdomen: Soft, Non Tender, Non-Distended Extremities: No clubbing, No cyanosis, Diminished Peripheral Pulses, Edema - General bilateral lower extremity edema with varicosities present left lower extremity Skin: Ulcer/ Wound - Ulcer to left lower extremity posterior, anterior, and lateral with adherent slough, no signs of infection, no purulent drainage, erythema, warmth, or tenderness Wound Measurements and Assessment WC - Nurse 1 - General Ulcer Measurement Start: 04/13/18 16:25 Freq: Status: Active Protocol: Activity Type Activity Date Activity User E-Sign Co-Sign Detail Recorded Client Recorded Date Recorded By Document 05/04/18 15:48 [facility] [id number] 05/04/18 15:58 [facility] 05/04/18 15:48 Wound Center Nurse 1 [Ulcer Assessment] #4 left anterior jain -Combined with other wound No -Current Size (cm) - Length 1.7 -Current Size (cm) - Width 1.7 -Current Size (cm) - Depth 0.1 -Total Square Cm 2.89 -Photo Taken No -Epithelialization Small 1-33% -Tunneling No -Undermining/Tunneling No -Circular Undermining No -Exudate Amt Small -Exudate Type Serosanguineous -Wound Margin Flat & Intact -Granulation Amt Medium (34-66%) -Granulation Quality Hyper- granulation Red -Slough/Fibrin Yes -Necrosis Amt Medium (34-66%) -Necrotic Tissue Type Adherent Slough -Texture (Patricia-wound Skin Appearance) Scarring -Moisture (Patricia-wound Skin Appearance Dry/Scaly ) -Color (Patricia-wound Skin Appearance) Assessed Erythema -Temperature (Patricia-wound Skin No Abnormality Appearance) (Pt Warm) -Tenderness on Palpation (Patricia-wound No Skin Appearance) -Ulcer Cleansing Rinsed/ Irrigated with Saline -Foul Odor after Cleansing No -Anesthetic Used 5% Lidocaine Gel #3 left posterior leg -Combined with other wound No -Current Size (cm) - Length 0.4 -Current Size (cm) - Width 0.7 -Current Size (cm) - Depth 0.1 -Total Square Cm 0.28 -Photo Taken No -Epithelialization Large 67-100% -Tunneling No -Undermining/Tunneling No -Circular Undermining No -Exudate Amt Small -Exudate Type Sanguineous -Wound Margin Flat & Intact -Granulation Amt Large (67-100%) -Granulation Quality Red -Slough/Fibrin No -Necrosis Amt None Present (0 %) -Texture (Patricia-wound Skin Appearance) Scarring -Moisture (Patricia-wound Skin Appearance Dry/Scaly ) -Color (Patricia-wound Skin Appearance) Assessed -Temperature (Patricia-wound Skin No Abnormality Appearance) (Pt Warm) -Tenderness on Palpation (Patricia-wound No Skin Appearance) -Ulcer Cleansing Rinsed/ Irrigated with Saline -Foul Odor after Cleansing No -Anesthetic Used 5% Lidocaine Gel #2 left lateral leg -Combined with other wound No -Current Size (cm) - Length 0.1 -Current Size (cm) - Width 0.1 -Current Size (cm) - Depth 0.1 -Total Square Cm 0.01 -Photo Taken No -Epithelialization Large 67-100% -Tunneling No -Undermining/Tunneling No -Circular Undermining No -Exudate Amt None Present -Structure Exposed N/A -Texture (Patricia-wound Skin Appearance) Scarring -Moisture (Patricia-wound Skin Appearance Dry/Scaly ) -Color (Patricia-wound Skin Appearance) Assessed -Temperature (Patricia-wound Skin No Abnormality Appearance) (Pt Warm) -Tenderness on Palpation (Patricia-wound No Skin Appearance) -Ulcer Cleansing Rinsed/ Irrigated with Saline -Foul Odor after Cleansing No -Anesthetic Used 5% Lidocaine Gel [Edema Assessment] -Lower Limb Edema Present Yes -Left Calf (cm) 42.2 -Left Ankle (cm) 23.7 WC - Nurse 2 - General Ulcer CM Notes Start: 04/13/18 16:25 Freq: Status: Active Protocol: Activity Type Activity Date Activity User E-Sign Co-Sign Detail Recorded Client Recorded Date Recorded By Document 05/04/18 16:08 CS [id number] 05/04/18 16:14 05/04/18 16:08 Wound Center Nurse 2 [Procedure/Treatment] #4 left anterior jain -Time 16:08 -Correct Patient Yes -Correct Side, Site, Position Yes -Correct Procedure Yes -Procedure Performed Yes -Type of Procedure Debridement -Clinical Debridement Subcutaneous -Post Debridement Size (cm) - Length 1.6 -Post Debridement Size (cm) - Width 1.3 -Post Debridement Size (cm) - Depth 0.1 -Total Square Cm 2.08 -Wound/Ulcer Outcome Not Healed -Ulcer Cleansing Not Cleansed -Foul Odor after Cleansing No -Bioengineered Tissue Yes -Type of bioengineered Tissue EPIFIX -Expiration Date 11/09/22 -Product Lot Number [id number] -Percent Used 100 -Bleeding Controlled with Pressure -Offloading No -Treatment Response Procedure Tolerated Well #3 left posterior leg -Time 16:09 -Correct Patient Yes -Correct Side, Site, Position Yes -Correct Procedure Yes -Procedure Performed Yes -Type of Procedure Debridement -Clinical Debridement Subcutaneous -Post Debridement Size (cm) - Length 0.4 -Post Debridement Size (cm) - Width 0.4 -Post Debridement Size (cm) - Depth 0.1 -Total Square Cm 0.16 -Wound/Ulcer Outcome Not Healed -Ulcer Cleansing Not Cleansed -Foul Odor after Cleansing No -Bioengineered Tissue No -Bleeding Controlled with Pressure -Offloading No -Treatment Response Procedure Tolerated Well #2 left lateral leg -Time 16:09 -Correct Patient Yes -Correct Side, Site, Position Yes -Correct Procedure Yes -Procedure Performed Yes -Type of Procedure Debridement -Clinical Debridement Subcutaneous -Post Debridement Size (cm) - Length 0.4 -Post Debridement Size (cm) - Width 0.3 -Post Debridement Size (cm) - Depth 0.1 -Total Square Cm 0.12 -Wound/Ulcer Outcome Not Healed -Ulcer Cleansing Not Cleansed -Foul Odor after Cleansing No -Bioengineered Tissue No -Bleeding Controlled with NA -Offloading No -Treatment Response Procedure Tolerated Well [See Physician Procedure note for Specifics] Pain Scale: 0-10 Numeric [Pain] -Is Patient Pain Free? Yes Neurological: Neuro grossly intact Psych/Mental Status: Normal Affect, Appropriate, Alert and oriented to time, place, person, mood and affect Debridement Note Post-Debridement Measurements/Treatment WC - Nurse 2 - General Ulcer CM Notes Start: 04/13/18 16:25 Freq: Status: Active Protocol: Activity Type Activity Date Activity User E-Sign Co-Sign Detail Recorded Client Recorded Date Recorded By Document 04/13/18 16:44 [id number] 04/13/18 16:49 CS Document 04/20/18 16:15 DV [id number] 04/20/18 16:17 DV Document 04/27/18 16:01 CS [id number] 04/27/18 16:06 CS Document 05/04/18 16:08 CS [id number] 05/04/18 16:14 CS 04/13/18 04/20/18 04/27/18 16:44 16:15 16:01 Wound Center Nurse 2 #4 left anterior jain -Time 16:45 16:15 16:02 -Correct Patient Yes Yes Yes -Correct Side, Site, Position Yes Yes Yes -Correct Procedure Yes Yes Yes -Procedure Performed Yes Yes Yes -Type of Procedure Debridement Debridement Debridement -Clinical Debridement Subcutaneous Subcutaneous Subcutaneous -Post Debridement Size (cm) - Length 2.1 1.9 3.1 -Post Debridement Size (cm) - Width 1.8 1.8 3.1 -Post Debridement Size (cm) - Depth 0.1 0.1 0.1 -Total Square Cm 3.78 3.42 9.61 -Wound/Ulcer Outcome Not Healed Not Healed Not Healed -Ulcer Cleansing Rinsed/ Not Cleansed Irrigated with Saline -Foul Odor after Cleansing No No No -Bioengineered Tissue No No No -Type of bioengineered Tissue -Expiration Date -Product Lot Number -Percent Used -Bleeding Controlled with Pressure Pressure NA -Offloading No No No -Treatment Response Procedure Procedure Procedure Tolerated Well Tolerated Well Tolerated Well #3 left posterior leg -Time 16:45 16:16 16:02 -Correct Patient Yes Yes Yes -Correct Side, Site, Position Yes Yes Yes -Correct Procedure Yes Yes Yes -Procedure Performed Yes Yes Yes -Type of Procedure Debridement Debridement Debridement -Clinical Debridement Subcutaneous Subcutaneous Subcutaneous -Post Debridement Size (cm) - Length 0.4 0.5 0.1 -Post Debridement Size (cm) - Width 0.4 1.1 0.1 -Post Debridement Size (cm) - Depth 0.1 0.1 0.1 -Total Square Cm 0.16 0.55 0.01 -Wound/Ulcer Outcome Not Healed Not Healed Not Healed -Ulcer Cleansing Not Cleansed Rinsed/ Not Cleansed Irrigated with Saline -Foul Odor after Cleansing No No No -Bioengineered Tissue No No No -Bleeding Controlled with Pressure Pressure NA -Offloading No No No -Treatment Response Procedure Procedure Procedure Tolerated Well Tolerated Well Tolerated Well #2 left lateral leg -Time 16:45 16:16 16:03 -Correct Patient Yes Yes Yes -Correct Side, Site, Position Yes Yes Yes -Correct Procedure Yes Yes Yes -Procedure Performed Yes Yes Yes -Type of Procedure Debridement Debridement Debridement -Clinical Debridement Subcutaneous Subcutaneous Subcutaneous -Post Debridement Size (cm) - Length 0.7 0.3 0.1 -Post Debridement Size (cm) - Width 1.1 0.2 0.1 -Post Debridement Size (cm) - Depth 0.1 0.1 0.1 -Total Square Cm 0.77 0.06 0.01 -Wound/Ulcer Outcome Not Healed Not Healed Not Healed -Ulcer Cleansing Not Cleansed Rinsed/ Not Cleansed Irrigated with Saline -Foul Odor after Cleansing No No No -Bioengineered Tissue No No No -Bleeding Controlled with Pressure Pressure NA -Offloading No No No -Treatment Response Procedure Procedure Procedure Tolerated Well Tolerated Well Tolerated Well Pain Scale: 0-10 Numeric Is Patient Pain Free? Yes Yes Yes 05/04/18 16:08 Wound Center Nurse 2 #4 left anterior jain -Time 16:08 -Correct Patient Yes -Correct Side, Site, Position Yes -Correct Procedure Yes -Procedure Performed Yes -Type of Procedure Debridement -Clinical Debridement Subcutaneous -Post Debridement Size (cm) - Length 1.6 -Post Debridement Size (cm) - Width 1.3 -Post Debridement Size (cm) - Depth 0.1 -Total Square Cm 2.08 -Wound/Ulcer Outcome Not Healed -Ulcer Cleansing Not Cleansed -Foul Odor after Cleansing No -Bioengineered Tissue Yes -Type of bioengineered Tissue EPIFIX -Expiration Date 11/09/22 -Product Lot Number [id number] -Percent Used 100 -Bleeding Controlled with Pressure -Offloading No -Treatment Response Procedure Tolerated Well #3 left posterior leg -Time 16:09 -Correct Patient Yes -Correct Side, Site, Position Yes -Correct Procedure Yes -Procedure Performed Yes -Type of Procedure Debridement -Clinical Debridement Subcutaneous -Post Debridement Size (cm) - Length 0.4 -Post Debridement Size (cm) - Width 0.4 -Post Debridement Size (cm) - Depth 0.1 -Total Square Cm 0.16 -Wound/Ulcer Outcome Not Healed -Ulcer Cleansing Not Cleansed -Foul Odor after Cleansing No -Bioengineered Tissue No -Bleeding Controlled with Pressure -Offloading No -Treatment Response Procedure Tolerated Well #2 left lateral leg -Time 16:09 -Correct Patient Yes -Correct Side, Site, Position Yes -Correct Procedure Yes -Procedure Performed Yes -Type of Procedure Debridement -Clinical Debridement Subcutaneous -Post Debridement Size (cm) - Length 0.4 -Post Debridement Size (cm) - Width 0.3 -Post Debridement Size (cm) - Depth 0.1 -Total Square Cm 0.12 -Wound/Ulcer Outcome Not Healed -Ulcer Cleansing Not Cleansed -Foul Odor after Cleansing No -Bioengineered Tissue No -Bleeding Controlled with NA -Offloading No -Treatment Response Procedure Tolerated Well Pain Scale: 0-10 Numeric Is Patient Pain Free? Yes Wound debrided: Venous leg ulcer left anterior posterior and lateral Laterality: Left Type of Debridement: Excisional debridement Anesthesia Used: 5% Lidocaine Gel Depth: in the subcutaneous layer Percentage of wound debrided: 100 Instrument Used: 5mm curette Tissue Removed: Slough and devitalized tissue Severity: Fat Layer Exposed Amount of bleeding with debridement: Mild Bleeding Controlled with: Pressure Patient tolerated procedure well Assessment/Plan Active Problems Decreased dorsalis pedis pulse (Chronic) Bilateral lower extremity edema (Chronic) MRSA cellulitis (Acute) Cellulitis of left lower extremity (Acute) PVD (peripheral vascular disease) (Acute) Venous stasis ulcer with varicose veins of left lower extremity (Acute) x 3 anterior, posterior, and lateral left lower extremity Assessment: Nonhealing ulcers to the left lower extremity, posterior, anterior, and lateral Plan: The patient was seen and examined at the wound center today and was updated on the plan of care. A subcutaneous debridement was performed today. The patient tolerated the procedure well. The patients wound care will consist of: To left anterior lower extremity ulcer Epfix #1 was applied after subcutaneous debridement, it was then covered with the wound veil and a thin layer of hydrogel, and secured with Steri-Strips, 100% of the Epifix was used with 0% waste. Patient tolerated the procedure well. Applying elizabet to left posterior and lateral lower extremity ulcers . She will continue with her compression stockings. Wound cultures were collected prior and showed MRSA and completed a course of doxy. Baseline bloodwork essentially within normal limits. Vascular studies showed venous insufficiency and The resting right ankle?brachial index was calculated to be 1.21. The resting left ankle?brachial index was calculated to be 1.14. The patient was referred to Dr. Hadley for consultation and per patient stated that she will be having sclerotherapy done in the future, will request Dr. Hadley's note for continuity of care. Patient educated on the importance of diet on wound healing and instructed to increase protein and vitamin C intake. Patient instructed to take Tylenol prior to her next debridement. Discussed red flag symptoms of cellulitis and infection that require urgent medical attention. Patient verbalized understanding. Patient will follow up at wound healing center in one week or sooner if needed. This note was generated with [employer] dictation software. It may contain incorrect words, spelling, and punctuation that were not noted in checking the note before signing. Code Visit [id number]: [id number] Skin sub graft trnk/arm/leg
--- NOTE | 2018-05-07 09:19 | PN.PCM_ITS ---
(1) Venous stasis ulcer with varicose veins of left lower extremity Status: Acute Current Visit: Yes Code(s): I83.029 - Varicose veins of left lower extremity with ulcer of unspecified site; L97.929 - Non-pressure chronic ulcer of unspecified part of left lower leg with unspecified severity Comment: x 3 anterior, posterior, and lateral left lower extremity (2) PVD (peripheral vascular disease) Status: Acute Current Visit: Yes Code(s): I73.9 - Peripheral vascular disease, unspecified (3) Cellulitis of left lower extremity Status: Acute Current Visit: Yes Code(s): L03.116 - Cellulitis of left lower limb (4) Depression Status: Acute Current Visit: No Code(s): F32.9 - Major depressive disorder, single episode, unspecified (5) Hyperlipidemia Status: Acute Current Visit: No Code(s): E78.5 - Hyperlipidemia, unspecified (6) MRSA cellulitis Status: Acute Current Visit: Yes Code(s): L03.90 - Cellulitis, unspecified; B95.62 - Methicillin resistant Staphylococcus aureus infection as the cause of diseases classified elsewhere (7) Bilateral lower extremity edema Status: Chronic Current Visit: Yes Code(s): R60.0 - Localized edema (8) Decreased dorsalis pedis pulse Status: Chronic Current Visit: Yes Code(s): R09.89 - Other specified symptoms and signs involving the circulatory and respiratory systems Type of Wound Chief Complaint: Nonhealing ulcers to the left lower extremity times 3 months History of Wound: This is a 62-year-old white female who presents to the wound healing center today with complaints of 3 lower extremity ulcers times 3 months. She states that these ulcerations occurred when she hit her left lower extremity on a laundry cart 3 months ago. She states that she typically wears compression stockings and that for wound care she has been using Aquacel extra that she ordered online. She denies any signs of infection at this time, though she does state that the ulcerations are tender and draining serosanguineous fluid. She denies any fever, chills, nausea, vomiting, shortness of breath, chest pain or pressure, syncope or presyncopal episodes. She denies any other aggravating or relieving factors. She has been seen in 2013 here for nonhealing wounds of the lower extremity as well. Progress of Wound: Slow improvement, delayed wound healing therefore epifix number 1 applied, denies any purulent drainage has been utilizing the santyl and Elizabet well. Did state that she followed up with Dr. Hadley who recommended sclerotherapy which will be done on 05/15/18, will request records for continuity of care - Physical Exam Vital Signs Temp Pulse Resp BP 96 F L 104 H 16 137/95 H 05/04/18 15:48 05/04/18 15:48 05/04/18 15:48 05/04/18 15:48 General: Alert, Oriented x3, Cooperative, No apparent distress HEENT: Atraumatic Lungs: Clear to auscultation Cardiovascular: Regular rate Abdomen: Soft, Non Tender, Non-Distended Extremities: No clubbing, No cyanosis, Diminished Peripheral Pulses, Edema - General bilateral lower extremity edema with varicosities present left lower extremity Skin: Ulcer/ Wound - Ulcer to left lower extremity posterior, anterior, and lateral with adherent slough, no signs of infection, no purulent drainage, erythema, warmth, or tenderness Wound Measurements and Assessment WC - Nurse 1 - General Ulcer Measurement Start: 04/13/18 16:25 Freq: Status: Active Protocol: Activity Type Activity Date Activity User E-Sign Co-Sign Detail Recorded Client Recorded Date Recorded By Document 05/04/18 15:48 [facility] [id number] 05/04/18 15:58 [facility] 05/04/18 15:48 Wound Center Nurse 1 [Ulcer Assessment] #4 left anterior jain -Combined with other wound No -Current Size (cm) - Length 1.7 -Current Size (cm) - Width 1.7 -Current Size (cm) - Depth 0.1 -Total Square Cm 2.89 -Photo Taken No -Epithelialization Small 1-33% -Tunneling No -Undermining/Tunneling No -Circular Undermining No -Exudate Amt Small -Exudate Type Serosanguineous -Wound Margin Flat & Intact -Granulation Amt Medium (34-66%) -Granulation Quality Hyper- granulation Red -Slough/Fibrin Yes -Necrosis Amt Medium (34-66%) -Necrotic Tissue Type Adherent Slough -Texture (Patricia-wound Skin Appearance) Scarring -Moisture (Patricia-wound Skin Appearance Dry/Scaly ) -Color (Patricia-wound Skin Appearance) Assessed Erythema -Temperature (Patricia-wound Skin No Abnormality Appearance) (Pt Warm) -Tenderness on Palpation (Patricia-wound No Skin Appearance) -Ulcer Cleansing Rinsed/ Irrigated with Saline -Foul Odor after Cleansing No -Anesthetic Used 5% Lidocaine Gel #3 left posterior leg -Combined with other wound No -Current Size (cm) - Length 0.4 -Current Size (cm) - Width 0.7 -Current Size (cm) - Depth 0.1 -Total Square Cm 0.28 -Photo Taken No -Epithelialization Large 67-100% -Tunneling No -Undermining/Tunneling No -Circular Undermining No -Exudate Amt Small -Exudate Type Sanguineous -Wound Margin Flat & Intact -Granulation Amt Large (67-100%) -Granulation Quality Red -Slough/Fibrin No -Necrosis Amt None Present (0 %) -Texture (Patricia-wound Skin Appearance) Scarring -Moisture (Patricia-wound Skin Appearance Dry/Scaly ) -Color (Patricia-wound Skin Appearance) Assessed -Temperature (Patricia-wound Skin No Abnormality Appearance) (Pt Warm) -Tenderness on Palpation (Patricia-wound No Skin Appearance) -Ulcer Cleansing Rinsed/ Irrigated with Saline -Foul Odor after Cleansing No -Anesthetic Used 5% Lidocaine Gel #2 left lateral leg -Combined with other wound No -Current Size (cm) - Length 0.1 -Current Size (cm) - Width 0.1 -Current Size (cm) - Depth 0.1 -Total Square Cm 0.01 -Photo Taken No -Epithelialization Large 67-100% -Tunneling No -Undermining/Tunneling No -Circular Undermining No -Exudate Amt None Present -Structure Exposed N/A -Texture (Patricia-wound Skin Appearance) Scarring -Moisture (Patricia-wound Skin Appearance Dry/Scaly ) -Color (Patricia-wound Skin Appearance) Assessed -Temperature (Patricia-wound Skin No Abnormality Appearance) (Pt Warm) -Tenderness on Palpation (Patricia-wound No Skin Appearance) -Ulcer Cleansing Rinsed/ Irrigated with Saline -Foul Odor after Cleansing No -Anesthetic Used 5% Lidocaine Gel [Edema Assessment] -Lower Limb Edema Present Yes -Left Calf (cm) 42.2 -Left Ankle (cm) 23.7 WC - Nurse 2 - General Ulcer CM Notes Start: 04/13/18 16:25 Freq: Status: Active Protocol: Activity Type Activity Date Activity User E-Sign Co-Sign Detail Recorded Client Recorded Date Recorded By Document 05/04/18 16:08 CS [id number] 05/04/18 16:14 05/04/18 16:08 Wound Center Nurse 2 [Procedure/Treatment] #4 left anterior jain -Time 16:08 -Correct Patient Yes -Correct Side, Site, Position Yes -Correct Procedure Yes -Procedure Performed Yes -Type of Procedure Debridement -Clinical Debridement Subcutaneous -Post Debridement Size (cm) - Length 1.6 -Post Debridement Size (cm) - Width 1.3 -Post Debridement Size (cm) - Depth 0.1 -Total Square Cm 2.08 -Wound/Ulcer Outcome Not Healed -Ulcer Cleansing Not Cleansed -Foul Odor after Cleansing No -Bioengineered Tissue Yes -Type of bioengineered Tissue EPIFIX -Expiration Date 11/09/22 -Product Lot Number [id number] -Percent Used 100 -Bleeding Controlled with Pressure -Offloading No -Treatment Response Procedure Tolerated Well #3 left posterior leg -Time 16:09 -Correct Patient Yes -Correct Side, Site, Position Yes -Correct Procedure Yes -Procedure Performed Yes -Type of Procedure Debridement -Clinical Debridement Subcutaneous -Post Debridement Size (cm) - Length 0.4 -Post Debridement Size (cm) - Width 0.4 -Post Debridement Size (cm) - Depth 0.1 -Total Square Cm 0.16 -Wound/Ulcer Outcome Not Healed -Ulcer Cleansing Not Cleansed -Foul Odor after Cleansing No -Bioengineered Tissue No -Bleeding Controlled with Pressure -Offloading No -Treatment Response Procedure Tolerated Well #2 left lateral leg -Time 16:09 -Correct Patient Yes -Correct Side, Site, Position Yes -Correct Procedure Yes -Procedure Performed Yes -Type of Procedure Debridement -Clinical Debridement Subcutaneous -Post Debridement Size (cm) - Length 0.4 -Post Debridement Size (cm) - Width 0.3 -Post Debridement Size (cm) - Depth 0.1 -Total Square Cm 0.12 -Wound/Ulcer Outcome Not Healed -Ulcer Cleansing Not Cleansed -Foul Odor after Cleansing No -Bioengineered Tissue No -Bleeding Controlled with NA -Offloading No -Treatment Response Procedure Tolerated Well [See Physician Procedure note for Specifics] Pain Scale: 0-10 Numeric [Pain] -Is Patient Pain Free? Yes Neurological: Neuro grossly intact Psych/Mental Status: Normal Affect, Appropriate, Alert and oriented to time, place, person, mood and affect Debridement Note Post-Debridement Measurements/Treatment WC - Nurse 2 - General Ulcer CM Notes Start: 04/13/18 16:25 Freq: Status: Active Protocol: Activity Type Activity Date Activity User E-Sign Co-Sign Detail Recorded Client Recorded Date Recorded By Document 04/13/18 16:44 [id number] 04/13/18 16:49 CS Document 04/20/18 16:15 DV [id number] 04/20/18 16:17 DV Document 04/27/18 16:01 CS [id number] 04/27/18 16:06 CS Document 05/04/18 16:08 CS [id number] 05/04/18 16:14 CS 04/13/18 04/20/18 04/27/18 16:44 16:15 16:01 Wound Center Nurse 2 #4 left anterior jain -Time 16:45 16:15 16:02 -Correct Patient Yes Yes Yes -Correct Side, Site, Position Yes Yes Yes -Correct Procedure Yes Yes Yes -Procedure Performed Yes Yes Yes -Type of Procedure Debridement Debridement Debridement -Clinical Debridement Subcutaneous Subcutaneous Subcutaneous -Post Debridement Size (cm) - Length 2.1 1.9 3.1 -Post Debridement Size (cm) - Width 1.8 1.8 3.1 -Post Debridement Size (cm) - Depth 0.1 0.1 0.1 -Total Square Cm 3.78 3.42 9.61 -Wound/Ulcer Outcome Not Healed Not Healed Not Healed -Ulcer Cleansing Rinsed/ Not Cleansed Irrigated with Saline -Foul Odor after Cleansing No No No -Bioengineered Tissue No No No -Type of bioengineered Tissue -Expiration Date -Product Lot Number -Percent Used -Bleeding Controlled with Pressure Pressure NA -Offloading No No No -Treatment Response Procedure Procedure Procedure Tolerated Well Tolerated Well Tolerated Well #3 left posterior leg -Time 16:45 16:16 16:02 -Correct Patient Yes Yes Yes -Correct Side, Site, Position Yes Yes Yes -Correct Procedure Yes Yes Yes -Procedure Performed Yes Yes Yes -Type of Procedure Debridement Debridement Debridement -Clinical Debridement Subcutaneous Subcutaneous Subcutaneous -Post Debridement Size (cm) - Length 0.4 0.5 0.1 -Post Debridement Size (cm) - Width 0.4 1.1 0.1 -Post Debridement Size (cm) - Depth 0.1 0.1 0.1 -Total Square Cm 0.16 0.55 0.01 -Wound/Ulcer Outcome Not Healed Not Healed Not Healed -Ulcer Cleansing Not Cleansed Rinsed/ Not Cleansed Irrigated with Saline -Foul Odor after Cleansing No No No -Bioengineered Tissue No No No -Bleeding Controlled with Pressure Pressure NA -Offloading No No No -Treatment Response Procedure Procedure Procedure Tolerated Well Tolerated Well Tolerated Well #2 left lateral leg -Time 16:45 16:16 16:03 -Correct Patient Yes Yes Yes -Correct Side, Site, Position Yes Yes Yes -Correct Procedure Yes Yes Yes -Procedure Performed Yes Yes Yes -Type of Procedure Debridement Debridement Debridement -Clinical Debridement Subcutaneous Subcutaneous Subcutaneous -Post Debridement Size (cm) - Length 0.7 0.3 0.1 -Post Debridement Size (cm) - Width 1.1 0.2 0.1 -Post Debridement Size (cm) - Depth 0.1 0.1 0.1 -Total Square Cm 0.77 0.06 0.01 -Wound/Ulcer Outcome Not Healed Not Healed Not Healed -Ulcer Cleansing Not Cleansed Rinsed/ Not Cleansed Irrigated with Saline -Foul Odor after Cleansing No No No -Bioengineered Tissue No No No -Bleeding Controlled with Pressure Pressure NA -Offloading No No No -Treatment Response Procedure Procedure Procedure Tolerated Well Tolerated Well Tolerated Well Pain Scale: 0-10 Numeric Is Patient Pain Free? Yes Yes Yes 05/04/18 16:08 Wound Center Nurse 2 #4 left anterior jain -Time 16:08 -Correct Patient Yes -Correct Side, Site, Position Yes -Correct Procedure Yes -Procedure Performed Yes -Type of Procedure Debridement -Clinical Debridement Subcutaneous -Post Debridement Size (cm) - Length 1.6 -Post Debridement Size (cm) - Width 1.3 -Post Debridement Size (cm) - Depth 0.1 -Total Square Cm 2.08 -Wound/Ulcer Outcome Not Healed -Ulcer Cleansing Not Cleansed -Foul Odor after Cleansing No -Bioengineered Tissue Yes -Type of bioengineered Tissue EPIFIX -Expiration Date 11/09/22 -Product Lot Number [id number] -Percent Used 100 -Bleeding Controlled with Pressure -Offloading No -Treatment Response Procedure Tolerated Well #3 left posterior leg -Time 16:09 -Correct Patient Yes -Correct Side, Site, Position Yes -Correct Procedure Yes -Procedure Performed Yes -Type of Procedure Debridement -Clinical Debridement Subcutaneous -Post Debridement Size (cm) - Length 0.4 -Post Debridement Size (cm) - Width 0.4 -Post Debridement Size (cm) - Depth 0.1 -Total Square Cm 0.16 -Wound/Ulcer Outcome Not Healed -Ulcer Cleansing Not Cleansed -Foul Odor after Cleansing No -Bioengineered Tissue No -Bleeding Controlled with Pressure -Offloading No -Treatment Response Procedure Tolerated Well #2 left lateral leg -Time 16:09 -Correct Patient Yes -Correct Side, Site, Position Yes -Correct Procedure Yes -Procedure Performed Yes -Type of Procedure Debridement -Clinical Debridement Subcutaneous -Post Debridement Size (cm) - Length 0.4 -Post Debridement Size (cm) - Width 0.3 -Post Debridement Size (cm) - Depth 0.1 -Total Square Cm 0.12 -Wound/Ulcer Outcome Not Healed -Ulcer Cleansing Not Cleansed -Foul Odor after Cleansing No -Bioengineered Tissue No -Bleeding Controlled with NA -Offloading No -Treatment Response Procedure Tolerated Well Pain Scale: 0-10 Numeric Is Patient Pain Free? Yes Wound debrided: Venous leg ulcer left anterior posterior and lateral Laterality: Left Type of Debridement: Excisional debridement Anesthesia Used: 5% Lidocaine Gel Depth: in the subcutaneous layer Percentage of wound debrided: 100 Instrument Used: 5mm curette Tissue Removed: Slough and devitalized tissue Severity: Fat Layer Exposed Amount of bleeding with debridement: Mild Bleeding Controlled with: Pressure Patient tolerated procedure well Assessment/Plan Active Problems Decreased dorsalis pedis pulse (Chronic) Bilateral lower extremity edema (Chronic) MRSA cellulitis (Acute) Cellulitis of left lower extremity (Acute) PVD (peripheral vascular disease) (Acute) Venous stasis ulcer with varicose veins of left lower extremity (Acute) x 3 anterior, posterior, and lateral left lower extremity Assessment: Nonhealing ulcers to the left lower extremity, posterior, anterior, and lateral Plan: The patient was seen and examined at the wound center today and was updated on the plan of care. A subcutaneous debridement was performed today. The patient tolerated the procedure well. The patients wound care will consist of: To left anterior lower extremity ulcer Epfix #1 was applied after subcutaneous debridement, it was then covered with the wound veil and a thin layer of hydrogel, and secured with Steri-Strips, 100% of the Epifix was used with 0% waste. Patient tolerated the procedure well. Applying elizabet to left posterior and lateral lower extremity ulcers . She will continue with her compression stockings. Wound cultures were collected prior and showed MRSA and completed a course of doxy. Baseline bloodwork essentially within normal limits. Vascular studies showed venous insufficiency and The resting right ankle?brachial index was calculated to be 1.21. The resting left ankle?brachial index was calculated to be 1.14. The patient was referred to Dr. Hadley for consultation and per patient stated that she will be having sclerotherapy done in the future, will request Dr. Hadley's note for continuity of care. Patient educated on the importance of diet on wound healing and instructed to increase protein and vitamin C intake. Patient instructed to take Tylenol prior to her next debridement. Discussed red flag symptoms of cellulitis and infection that require urgent medical attention. Patient verbalized understanding. Patient will follow up at wound healing center in one week or sooner if needed. This note was generated with [employer] dictation software. It may contain incorrect words, spelling, and punctuation that were not noted in checking the note before signing. Code Visit [id number]: [id number] Skin sub graft trnk/arm/leg
[2018-05-11 15:49] VITALS: BP 139/81; PULSE 96; RESP 18; TEMP 36.8; BMI 35.4
--- NOTE | 2018-05-11 16:11 | PCM.WC.PN ---
(1) Venous stasis ulcer with varicose veins of left lower extremity Status: Acute Code(s): I83.029 - Varicose veins of left lower extremity with ulcer of unspecified site; L97.929 - Non-pressure chronic ulcer of unspecified part of left lower leg with unspecified severity Comment: x 3 anterior, posterior, and lateral left lower extremity (2) PVD (peripheral vascular disease) Status: Acute Code(s): I73.9 - Peripheral vascular disease, unspecified (3) Cellulitis of left lower extremity Status: Acute Code(s): L03.116 - Cellulitis of left lower limb (4) Depression Status: Acute Code(s): F32.9 - Major depressive disorder, single episode, unspecified (5) Hyperlipidemia Status: Acute Code(s): E78.5 - Hyperlipidemia, unspecified (6) MRSA cellulitis Status: Acute Code(s): L03.90 - Cellulitis, unspecified; B95.62 - Methicillin resistant Staphylococcus aureus infection as the cause of diseases classified elsewhere (7) Bilateral lower extremity edema Status: Chronic Code(s): R60.0 - Localized edema (8) Decreased dorsalis pedis pulse Status: Chronic Code(s): R09.89 - Other specified symptoms and signs involving the circulatory and respiratory systems Type of Wound Date of Service: 05/11/18 Chief Complaint: Nonhealing ulcers to the left lower extremity times 3 months History of Wound: This is a 62-year-old white female who presents to the wound healing center today with complaints of 3 lower extremity ulcers times 3 months. She states that these ulcerations occurred when she hit her left lower extremity on a laundry cart 3 months ago. She states that she typically wears compression stockings and that for wound care she has been using Aquacel extra that she ordered online. She denies any signs of infection at this time, though she does state that the ulcerations are tender and draining serosanguineous fluid. She denies any fever, chills, nausea, vomiting, shortness of breath, chest pain or pressure, syncope or presyncopal episodes. She denies any other aggravating or relieving factors. She has been seen in 2013 here for nonhealing wounds of the lower extremity as well. Progress of Wound: Slow improvement, delayed wound healing therefore epifix number 2 applied to anterior ulcer and will be continued. denies any purulent drainage has been utilizing the Elizabet to other sites which are slowly improving. Did state that she followed up with Dr. Hadley who recommended sclerotherapy which will be done on 05/15/18, will request records for continuity of care. Patient does note that due to scheduling conflicts she will not be able to follow-up next week and will have to be pushed out 2 weeks. - Physical Exam Vital Signs Temp Pulse Resp BP 98.3 F 96 18 139/81 H 05/11/18 15:49 05/11/18 15:49 05/11/18 15:49 05/11/18 15:49 General: Alert, Oriented x3, Cooperative, No apparent distress HEENT: Atraumatic, PERRLA Oral: Moist Mucosa Lungs: Clear to auscultation Cardiovascular: Regular rate, Regular Rhythm Abdomen: Soft, Non Tender, Obese Extremities: No clubbing, No cyanosis, Diminished Peripheral Pulses - Bilateral dorsal pedis pulses, Edema - Generalized bilateral lower extremity edema Skin: Ulcer/ Wound - Left anterior, lateral, and posterior ulcers with adherent slough, no signs of infection, no redness, purulent drainage, streaking, warmth, or tenderness. Wound Measurements and Assessment WC - Nurse 1 - General Ulcer Measurement Start: 04/13/18 16:25 Freq: Status: Active Protocol: Activity Type Activity Date Activity User E-Sign Co-Sign Detail Recorded Client Recorded Date Recorded By Document 05/11/18 15:49 DL [id number] 05/11/18 15:58 DL 05/11/18 15:49 Wound Center Nurse 1 [Ulcer Assessment] #4 left anterior jain -Current Size (cm) - Length 1.5 -Current Size (cm) - Width 1.4 -Current Size (cm) - Depth 0.1 -Total Square Cm 2.10 -Photo Taken No -Exudate Amt Small -Exudate Type Serosanguineous -Wound Margin Distinct, Outline Attached -Granulation Amt Medium (34-66%) -Granulation Quality Red -Necrosis Amt Medium (34-66%) -Necrotic Tissue Type Adherent Slough -Structure Exposed N/A -Texture (Patricia-wound Skin Appearance) Scarring -Color (Patricia-wound Skin Appearance) Hemosiderin Staining Rubor -Temperature (Patricia-wound Skin No Abnormality Appearance) (Pt Warm) -Tenderness on Palpation (Patricia-wound No Skin Appearance) -Ulcer Cleansing Rinsed/ Irrigated with Saline -Foul Odor after Cleansing No -Anesthetic Used 5% Lidocaine Gel #3 left posterior leg -Current Size (cm) - Length 1.7 -Current Size (cm) - Width 1.4 -Current Size (cm) - Depth 0.1 -Total Square Cm 2.38 -Photo Taken No -Exudate Amt None Present -Wound Margin Flat & Intact -Granulation Amt Large (67-100%) -Granulation Quality Red -Necrosis Amt None Present (0 %) -Structure Exposed N/A -Texture (Patricia-wound Skin Appearance) Excoriation Scarring -Moisture (Patricia-wound Skin Appearance Dry/Scaly ) -Color (Patricia-wound Skin Appearance) Erythema -Temperature (Patricia-wound Skin No Abnormality Appearance) (Pt Warm) -Tenderness on Palpation (Patricia-wound No Skin Appearance) -Ulcer Cleansing Rinsed/ Irrigated with Saline -Foul Odor after Cleansing No -Anesthetic Used 5% Lidocaine Gel #2 left lateral leg -Current Size (cm) - Length 0.2 -Current Size (cm) - Width 0.2 -Current Size (cm) - Depth 0.1 -Total Square Cm 0.04 -Photo Taken No -Exudate Amt None Present -Wound Margin Thickened -Granulation Amt Small (1-33%) -Granulation Quality [place] -Necrosis Amt Small (1-33%) -Necrotic Tissue Type Adherent Slough -Structure Exposed N/A -Texture (Patricia-wound Skin Appearance) Scarring -Moisture (Patricia-wound Skin Appearance Dry/Scaly ) -Color (Patricia-wound Skin Appearance) Erythema -Temperature (Patricia-wound Skin No Abnormality Appearance) (Pt Warm) -Tenderness on Palpation (Patricia-wound No Skin Appearance) -Ulcer Cleansing Rinsed/ Irrigated with Saline -Foul Odor after Cleansing No -Anesthetic Used 5% Lidocaine Gel [Edema Assessment] -Left Calf (cm) 40 -Left Ankle (cm) 23 WC - Nurse 2 - General Ulcer CM Notes Start: 04/13/18 16:25 Freq: Status: Active Protocol: Activity Type Activity Date Activity User E-Sign Co-Sign Detail Recorded Client Recorded Date Recorded By Document 05/11/18 16:09 MW [id number] 05/11/18 16:28 MW 05/11/18 16:09 Wound Center Nurse 2 [Procedure/Treatment] #4 left anterior jain -Time 16:11 -Correct Patient Yes -Correct Side, Site, Position Yes -Correct Procedure Yes -Procedure Performed Yes -Type of Procedure Debridement -Clinical Debridement Subcutaneous -Post Debridement Size (cm) - Length 1.6 -Post Debridement Size (cm) - Width 1.4 -Post Debridement Size (cm) - Depth 0.1 -Total Square Cm 2.24 -Wound/Ulcer Outcome Not Healed -Ulcer Cleansing Rinsed/ Irrigated with Saline -Foul Odor after Cleansing No -Bioengineered Tissue No -Type of bioengineered Tissue EPIFIX -Expiration Date 11/09/22 -Product Lot Number [id number] -Percent Used 100 -Bleeding Controlled with Pressure -Other SALINE LOT # [id number] -Offloading No -Treatment Response Procedure Tolerated Well #3 left posterior leg -Time 16:11 -Correct Patient Yes -Correct Side, Site, Position Yes -Correct Procedure Yes -Procedure Performed Yes -Type of Procedure Debridement -Clinical Debridement Subcutaneous -Post Debridement Size (cm) - Length 0.1 -Post Debridement Size (cm) - Width 0.1 -Post Debridement Size (cm) - Depth 0.1 -Total Square Cm 0.01 -Wound/Ulcer Outcome Not Healed -Ulcer Cleansing Rinsed/ Irrigated with Saline -Foul Odor after Cleansing No -Bioengineered Tissue No -Bleeding Controlled with Pressure -Offloading No -Treatment Response Procedure Tolerated Well #2 left lateral leg -Time 16:11 -Correct Patient Yes -Correct Side, Site, Position Yes -Correct Procedure Yes -Procedure Performed Yes -Type of Procedure Debridement -Clinical Debridement Subcutaneous -Post Debridement Size (cm) - Length 0.3 -Post Debridement Size (cm) - Width 0.3 -Post Debridement Size (cm) - Depth 0.1 -Total Square Cm 0.09 -Wound/Ulcer Outcome Not Healed -Ulcer Cleansing Rinsed/ Irrigated with Saline -Foul Odor after Cleansing No -Bioengineered Tissue No -Bleeding Controlled with Pressure -Offloading No -Treatment Response Procedure Tolerated Well [See Physician Procedure note for Specifics] Pain Scale: 0-10 Numeric [Pain] -Is Patient Pain Free? Yes Musculoskeletal: No Tenderness to Palpation of Joints or Extremities Neurological: Neuro grossly intact Psych/Mental Status: Normal Affect, Appropriate, Alert and oriented to time, place, person, mood and affect Debridement Note Post-Debridement Measurements/Treatment WC - Nurse 2 - General Ulcer CM Notes Start: 04/13/18 16:25 Freq: Status: Active Protocol: Activity Type Activity Date Activity User E-Sign Co-Sign Detail Recorded Client Recorded Date Recorded By Document 04/13/18 16:44 CS [id number] 04/13/18 16:49 CS Document 04/20/18 16:15 DV [id number] 04/20/18 16:17 DV Document 04/27/18 16:01 CS [id number] 04/27/18 16:06 CS Document 05/04/18 16:08 CS [id number] 05/04/18 16:14 CS Document 05/11/18 16:09 MW [id number] 05/11/18 16:28 MW 04/13/18 04/20/18 04/27/18 16:44 16:15 16:01 Wound Center Nurse 2 #4 left anterior jain -Time 16:45 16:15 16:02 -Correct Patient Yes Yes Yes -Correct Side, Site, Position Yes Yes Yes -Correct Procedure Yes Yes Yes -Procedure Performed Yes Yes Yes -Type of Procedure Debridement Debridement Debridement -Clinical Debridement Subcutaneous Subcutaneous Subcutaneous -Post Debridement Size (cm) - Length 2.1 1.9 3.1 -Post Debridement Size (cm) - Width 1.8 1.8 3.1 -Post Debridement Size (cm) - Depth 0.1 0.1 0.1 -Total Square Cm 3.78 3.42 9.61 -Wound/Ulcer Outcome Not Healed Not Healed Not Healed -Ulcer Cleansing Rinsed/ Not Cleansed Irrigated with Saline -Foul Odor after Cleansing No No No -Bioengineered Tissue No No No -Type of bioengineered Tissue -Expiration Date -Product Lot Number -Percent Used -Bleeding Controlled with Pressure Pressure NA -Other -Offloading No No No -Treatment Response Procedure Procedure Procedure Tolerated Well Tolerated Well Tolerated Well #3 left posterior leg -Time 16:45 16:16 16:02 -Correct Patient Yes Yes Yes -Correct Side, Site, Position Yes Yes Yes -Correct Procedure Yes Yes Yes -Procedure Performed Yes Yes Yes -Type of Procedure Debridement Debridement Debridement -Clinical Debridement Subcutaneous Subcutaneous Subcutaneous -Post Debridement Size (cm) - Length 0.4 0.5 0.1 -Post Debridement Size (cm) - Width 0.4 1.1 0.1 -Post Debridement Size (cm) - Depth 0.1 0.1 0.1 -Total Square Cm 0.16 0.55 0.01 -Wound/Ulcer Outcome Not Healed Not Healed Not Healed -Ulcer Cleansing Not Cleansed Rinsed/ Not Cleansed Irrigated with Saline -Foul Odor after Cleansing No No No -Bioengineered Tissue No No No -Bleeding Controlled with Pressure Pressure NA -Offloading No No No -Treatment Response Procedure Procedure Procedure Tolerated Well Tolerated Well Tolerated Well #2 left lateral leg -Time 16:45 16:16 16:03 -Correct Patient Yes Yes Yes -Correct Side, Site, Position Yes Yes Yes -Correct Procedure Yes Yes Yes -Procedure Performed Yes Yes Yes -Type of Procedure Debridement Debridement Debridement -Clinical Debridement Subcutaneous Subcutaneous Subcutaneous -Post Debridement Size (cm) - Length 0.7 0.3 0.1 -Post Debridement Size (cm) - Width 1.1 0.2 0.1 -Post Debridement Size (cm) - Depth 0.1 0.1 0.1 -Total Square Cm 0.77 0.06 0.01 -Wound/Ulcer Outcome Not Healed Not Healed Not Healed -Ulcer Cleansing Not Cleansed Rinsed/ Not Cleansed Irrigated with Saline -Foul Odor after Cleansing No No No -Bioengineered Tissue No No No -Bleeding Controlled with Pressure Pressure NA -Offloading No No No -Treatment Response Procedure Procedure Procedure Tolerated Well Tolerated Well Tolerated Well Pain Scale: 0-10 Numeric Is Patient Pain Free? Yes Yes Yes 05/04/18 05/11/18 16:08 16:09 Wound Center Nurse 2 #4 left anterior jain -Time 16:08 16:11 -Correct Patient Yes Yes -Correct Side, Site, Position Yes Yes -Correct Procedure Yes Yes -Procedure Performed Yes Yes -Type of Procedure Debridement Debridement -Clinical Debridement Subcutaneous Subcutaneous -Post Debridement Size (cm) - Length 1.6 1.6 -Post Debridement Size (cm) - Width 1.3 1.4 -Post Debridement Size (cm) - Depth 0.1 0.1 -Total Square Cm 2.08 2.24 -Wound/Ulcer Outcome Not Healed Not Healed -Ulcer Cleansing Not Cleansed Rinsed/ Irrigated with Saline -Foul Odor after Cleansing No No -Bioengineered Tissue Yes No -Type of bioengineered Tissue EPIFIX EPIFIX -Expiration Date 11/09/22 11/09/22 -Product Lot Number [id number] -Percent Used 100 100 -Bleeding Controlled with Pressure Pressure -Other SALINE LOT # [id number] -Offloading No No -Treatment Response Procedure Procedure Tolerated Well Tolerated Well #3 left posterior leg -Time 16:09 16:11 -Correct Patient Yes Yes -Correct Side, Site, Position Yes Yes -Correct Procedure Yes Yes -Procedure Performed Yes Yes -Type of Procedure Debridement Debridement -Clinical Debridement Subcutaneous Subcutaneous -Post Debridement Size (cm) - Length 0.4 0.1 -Post Debridement Size (cm) - Width 0.4 0.1 -Post Debridement Size (cm) - Depth 0.1 0.1 -Total Square Cm 0.16 0.01 -Wound/Ulcer Outcome Not Healed Not Healed -Ulcer Cleansing Not Cleansed Rinsed/ Irrigated with Saline -Foul Odor after Cleansing No No -Bioengineered Tissue No No -Bleeding Controlled with Pressure Pressure -Offloading No No -Treatment Response Procedure Procedure Tolerated Well Tolerated Well #2 left lateral leg -Time 16:09 16:11 -Correct Patient Yes Yes -Correct Side, Site, Position Yes Yes -Correct Procedure Yes Yes -Procedure Performed Yes Yes -Type of Procedure Debridement Debridement -Clinical Debridement Subcutaneous Subcutaneous -Post Debridement Size (cm) - Length 0.4 0.3 -Post Debridement Size (cm) - Width 0.3 0.3 -Post Debridement Size (cm) - Depth 0.1 0.1 -Total Square Cm 0.12 0.09 -Wound/Ulcer Outcome Not Healed Not Healed -Ulcer Cleansing Not Cleansed Rinsed/ Irrigated with Saline -Foul Odor after Cleansing No No -Bioengineered Tissue No No -Bleeding Controlled with NA Pressure -Offloading No No -Treatment Response Procedure Procedure Tolerated Well Tolerated Well Pain Scale: 0-10 Numeric Is Patient Pain Free? Yes Yes Wound debrided: Left anterior, posterior, and lateral venous leg ulcer Laterality: Left Type of Debridement: Excisional debridement Anesthesia Used: 5% Lidocaine Gel Depth: in the subcutaneous layer Percentage of wound debrided: 100 Instrument Used: 7mm curette Tissue Removed: Slough and devitalized tissue Severity: Fat Layer Exposed Amount of bleeding with debridement: Mild Bleeding Controlled with: Pressure Patient tolerated procedure well Assessment/Plan Assessment: Nonhealing ulcers to the left lower extremity, posterior, anterior, and lateral Plan: The patient was seen and examined at the wound center today and was updated on the plan of care. A subcutaneous debridement was performed today. The patient tolerated the procedure well. The patients wound care will consist of: To left anterior lower extremity ulcer Epfix #2 was applied after subcutaneous debridement, it was then covered with the wound veil and a thin layer of hydrogel, and secured with Steri-Strips, 100% of the Epifix was used with 0% waste. Patient tolerated the procedure well. Applying elizabet to left posterior and lateral lower extremity ulcers . She will continue with her compression stockings. Wound cultures were collected prior and showed MRSA and completed a course of doxy. Baseline bloodwork essentially within normal limits. Vascular studies showed venous insufficiency and The resting right ankle?brachial index was calculated to be 1.21. The resting left ankle?brachial index was calculated to be 1.14. The patient was referred to Dr. Hadley for consultation and per patient stated that she will be having sclerotherapy done next week, will request Dr. Hadley's note for continuity of care. Patient educated on the importance of diet on wound healing and instructed to increase protein and vitamin C intake. Patient instructed to take Tylenol prior to her next debridement. Discussed red flag symptoms of cellulitis and infection that require urgent medical attention. Patient verbalized understanding. Patient will follow up at wound healing center in 2 weeks due to scheduling conflict or sooner if needed. This note was generated with [employer] dictation software. It may contain incorrect words, spelling, and punctuation that were not noted in checking the note before signing. Code Visit 111xxx-113xx: [id number] Zena subq tissue 20 sq cm/< 150xxx-152xx: [id number] Skin sub graft trnk/arm/leg
--- NOTE | 2018-05-12 16:14 | PN.PCM_ITS ---
(1) Venous stasis ulcer with varicose veins of left lower extremity Status: Acute Code(s): I83.029 - Varicose veins of left lower extremity with ulcer of unspecified site; L97.929 - Non-pressure chronic ulcer of unspecified part of left lower leg with unspecified severity Comment: x 3 anterior, posterior, and lateral left lower extremity (2) PVD (peripheral vascular disease) Status: Acute Code(s): I73.9 - Peripheral vascular disease, unspecified (3) Cellulitis of left lower extremity Status: Acute Code(s): L03.116 - Cellulitis of left lower limb (4) Depression Status: Acute Code(s): F32.9 - Major depressive disorder, single episode, unspecified (5) Hyperlipidemia Status: Acute Code(s): E78.5 - Hyperlipidemia, unspecified (6) MRSA cellulitis Status: Acute Code(s): L03.90 - Cellulitis, unspecified; B95.62 - Methicillin resistant Staphylococcus aureus infection as the cause of diseases classified elsewhere (7) Bilateral lower extremity edema Status: Chronic Code(s): R60.0 - Localized edema (8) Decreased dorsalis pedis pulse Status: Chronic Code(s): R09.89 - Other specified symptoms and signs involving the circulatory and respiratory systems Type of Wound Date of Service: 05/11/18 Chief Complaint: Nonhealing ulcers to the left lower extremity times 3 months History of Wound: This is a 62-year-old white female who presents to the wound healing center today with complaints of 3 lower extremity ulcers times 3 months. She states that these ulcerations occurred when she hit her left lower extremity on a laundry cart 3 months ago. She states that she typically wears compression stockings and that for wound care she has been using Aquacel extra that she ordered online. She denies any signs of infection at this time, though she does state that the ulcerations are tender and draining serosanguineous fluid. She denies any fever, chills, nausea, vomiting, shortness of breath, chest pain or pressure, syncope or presyncopal episodes. She denies any other aggravating or relieving factors. She has been seen in 2013 here for nonhealing wounds of the lower extremity as well. Progress of Wound: Slow improvement, delayed wound healing therefore epifix number 2 applied to anterior ulcer and will be continued. denies any purulent drainage has been utilizing the Elizabet to other sites which are slowly improving. Did state that she followed up with Dr. Hadley who recommended sclerotherapy which will be done on 05/15/18, will request records for continuity of care. Patient does note that due to scheduling conflicts she will not be able to follow-up next week and will have to be pushed out 2 weeks. - Physical Exam Vital Signs Temp Pulse Resp BP 98.3 F 96 18 139/81 H 05/11/18 15:49 05/11/18 15:49 05/11/18 15:49 05/11/18 15:49 General: Alert, Oriented x3, Cooperative, No apparent distress HEENT: Atraumatic, PERRLA Oral: Moist Mucosa Lungs: Clear to auscultation Cardiovascular: Regular rate, Regular Rhythm Abdomen: Soft, Non Tender, Obese Extremities: No clubbing, No cyanosis, Diminished Peripheral Pulses - Bilateral dorsal pedis pulses, Edema - Generalized bilateral lower extremity edema Skin: Ulcer/ Wound - Left anterior, lateral, and posterior ulcers with adherent slough, no signs of infection, no redness, purulent drainage, streaking, warmth, or tenderness. Wound Measurements and Assessment WC - Nurse 1 - General Ulcer Measurement Start: 04/13/18 16:25 Freq: Status: Active Protocol: Activity Type Activity Date Activity User E-Sign Co-Sign Detail Recorded Client Recorded Date Recorded By Document 05/11/18 15:49 DL [id number] 05/11/18 15:58 DL 05/11/18 15:49 Wound Center Nurse 1 [Ulcer Assessment] #4 left anterior jain -Current Size (cm) - Length 1.5 -Current Size (cm) - Width 1.4 -Current Size (cm) - Depth 0.1 -Total Square Cm 2.10 -Photo Taken No -Exudate Amt Small -Exudate Type Serosanguineous -Wound Margin Distinct, Outline Attached -Granulation Amt Medium (34-66%) -Granulation Quality Red -Necrosis Amt Medium (34-66%) -Necrotic Tissue Type Adherent Slough -Structure Exposed N/A -Texture (Patricia-wound Skin Appearance) Scarring -Color (Patricia-wound Skin Appearance) Hemosiderin Staining Rubor -Temperature (Patricia-wound Skin No Abnormality Appearance) (Pt Warm) -Tenderness on Palpation (Patricia-wound No Skin Appearance) -Ulcer Cleansing Rinsed/ Irrigated with Saline -Foul Odor after Cleansing No -Anesthetic Used 5% Lidocaine Gel #3 left posterior leg -Current Size (cm) - Length 1.7 -Current Size (cm) - Width 1.4 -Current Size (cm) - Depth 0.1 -Total Square Cm 2.38 -Photo Taken No -Exudate Amt None Present -Wound Margin Flat & Intact -Granulation Amt Large (67-100%) -Granulation Quality Red -Necrosis Amt None Present (0 %) -Structure Exposed N/A -Texture (Patricia-wound Skin Appearance) Excoriation Scarring -Moisture (Patricia-wound Skin Appearance Dry/Scaly ) -Color (Patricia-wound Skin Appearance) Erythema -Temperature (Patricia-wound Skin No Abnormality Appearance) (Pt Warm) -Tenderness on Palpation (Patricia-wound No Skin Appearance) -Ulcer Cleansing Rinsed/ Irrigated with Saline -Foul Odor after Cleansing No -Anesthetic Used 5% Lidocaine Gel #2 left lateral leg -Current Size (cm) - Length 0.2 -Current Size (cm) - Width 0.2 -Current Size (cm) - Depth 0.1 -Total Square Cm 0.04 -Photo Taken No -Exudate Amt None Present -Wound Margin Thickened -Granulation Amt Small (1-33%) -Granulation Quality [place] -Necrosis Amt Small (1-33%) -Necrotic Tissue Type Adherent Slough -Structure Exposed N/A -Texture (Patricia-wound Skin Appearance) Scarring -Moisture (Patricia-wound Skin Appearance Dry/Scaly ) -Color (Patricia-wound Skin Appearance) Erythema -Temperature (Patricia-wound Skin No Abnormality Appearance) (Pt Warm) -Tenderness on Palpation (Patricia-wound No Skin Appearance) -Ulcer Cleansing Rinsed/ Irrigated with Saline -Foul Odor after Cleansing No -Anesthetic Used 5% Lidocaine Gel [Edema Assessment] -Left Calf (cm) 40 -Left Ankle (cm) 23 WC - Nurse 2 - General Ulcer CM Notes Start: 04/13/18 16:25 Freq: Status: Active Protocol: Activity Type Activity Date Activity User E-Sign Co-Sign Detail Recorded Client Recorded Date Recorded By Document 05/11/18 16:09 MW [id number] 05/11/18 16:28 MW 05/11/18 16:09 Wound Center Nurse 2 [Procedure/Treatment] #4 left anterior jain -Time 16:11 -Correct Patient Yes -Correct Side, Site, Position Yes -Correct Procedure Yes -Procedure Performed Yes -Type of Procedure Debridement -Clinical Debridement Subcutaneous -Post Debridement Size (cm) - Length 1.6 -Post Debridement Size (cm) - Width 1.4 -Post Debridement Size (cm) - Depth 0.1 -Total Square Cm 2.24 -Wound/Ulcer Outcome Not Healed -Ulcer Cleansing Rinsed/ Irrigated with Saline -Foul Odor after Cleansing No -Bioengineered Tissue No -Type of bioengineered Tissue EPIFIX -Expiration Date 11/09/22 -Product Lot Number [id number] -Percent Used 100 -Bleeding Controlled with Pressure -Other SALINE LOT # [id number] -Offloading No -Treatment Response Procedure Tolerated Well #3 left posterior leg -Time 16:11 -Correct Patient Yes -Correct Side, Site, Position Yes -Correct Procedure Yes -Procedure Performed Yes -Type of Procedure Debridement -Clinical Debridement Subcutaneous -Post Debridement Size (cm) - Length 0.1 -Post Debridement Size (cm) - Width 0.1 -Post Debridement Size (cm) - Depth 0.1 -Total Square Cm 0.01 -Wound/Ulcer Outcome Not Healed -Ulcer Cleansing Rinsed/ Irrigated with Saline -Foul Odor after Cleansing No -Bioengineered Tissue No -Bleeding Controlled with Pressure -Offloading No -Treatment Response Procedure Tolerated Well #2 left lateral leg -Time 16:11 -Correct Patient Yes -Correct Side, Site, Position Yes -Correct Procedure Yes -Procedure Performed Yes -Type of Procedure Debridement -Clinical Debridement Subcutaneous -Post Debridement Size (cm) - Length 0.3 -Post Debridement Size (cm) - Width 0.3 -Post Debridement Size (cm) - Depth 0.1 -Total Square Cm 0.09 -Wound/Ulcer Outcome Not Healed -Ulcer Cleansing Rinsed/ Irrigated with Saline -Foul Odor after Cleansing No -Bioengineered Tissue No -Bleeding Controlled with Pressure -Offloading No -Treatment Response Procedure Tolerated Well [See Physician Procedure note for Specifics] Pain Scale: 0-10 Numeric [Pain] -Is Patient Pain Free? Yes Musculoskeletal: No Tenderness to Palpation of Joints or Extremities Neurological: Neuro grossly intact Psych/Mental Status: Normal Affect, Appropriate, Alert and oriented to time, place, person, mood and affect Debridement Note Post-Debridement Measurements/Treatment WC - Nurse 2 - General Ulcer CM Notes Start: 04/13/18 16:25 Freq: Status: Active Protocol: Activity Type Activity Date Activity User E-Sign Co-Sign Detail Recorded Client Recorded Date Recorded By Document 04/13/18 16:44 CS [id number] 04/13/18 16:49 CS Document 04/20/18 16:15 DV [id number] 04/20/18 16:17 DV Document 04/27/18 16:01 CS [id number] 04/27/18 16:06 CS Document 05/04/18 16:08 CS [id number] 05/04/18 16:14 CS Document 05/11/18 16:09 MW [id number] 05/11/18 16:28 MW 04/13/18 04/20/18 04/27/18 16:44 16:15 16:01 Wound Center Nurse 2 #4 left anterior jain -Time 16:45 16:15 16:02 -Correct Patient Yes Yes Yes -Correct Side, Site, Position Yes Yes Yes -Correct Procedure Yes Yes Yes -Procedure Performed Yes Yes Yes -Type of Procedure Debridement Debridement Debridement -Clinical Debridement Subcutaneous Subcutaneous Subcutaneous -Post Debridement Size (cm) - Length 2.1 1.9 3.1 -Post Debridement Size (cm) - Width 1.8 1.8 3.1 -Post Debridement Size (cm) - Depth 0.1 0.1 0.1 -Total Square Cm 3.78 3.42 9.61 -Wound/Ulcer Outcome Not Healed Not Healed Not Healed -Ulcer Cleansing Rinsed/ Not Cleansed Irrigated with Saline -Foul Odor after Cleansing No No No -Bioengineered Tissue No No No -Type of bioengineered Tissue -Expiration Date -Product Lot Number -Percent Used -Bleeding Controlled with Pressure Pressure NA -Other -Offloading No No No -Treatment Response Procedure Procedure Procedure Tolerated Well Tolerated Well Tolerated Well #3 left posterior leg -Time 16:45 16:16 16:02 -Correct Patient Yes Yes Yes -Correct Side, Site, Position Yes Yes Yes -Correct Procedure Yes Yes Yes -Procedure Performed Yes Yes Yes -Type of Procedure Debridement Debridement Debridement -Clinical Debridement Subcutaneous Subcutaneous Subcutaneous -Post Debridement Size (cm) - Length 0.4 0.5 0.1 -Post Debridement Size (cm) - Width 0.4 1.1 0.1 -Post Debridement Size (cm) - Depth 0.1 0.1 0.1 -Total Square Cm 0.16 0.55 0.01 -Wound/Ulcer Outcome Not Healed Not Healed Not Healed -Ulcer Cleansing Not Cleansed Rinsed/ Not Cleansed Irrigated with Saline -Foul Odor after Cleansing No No No -Bioengineered Tissue No No No -Bleeding Controlled with Pressure Pressure NA -Offloading No No No -Treatment Response Procedure Procedure Procedure Tolerated Well Tolerated Well Tolerated Well #2 left lateral leg -Time 16:45 16:16 16:03 -Correct Patient Yes Yes Yes -Correct Side, Site, Position Yes Yes Yes -Correct Procedure Yes Yes Yes -Procedure Performed Yes Yes Yes -Type of Procedure Debridement Debridement Debridement -Clinical Debridement Subcutaneous Subcutaneous Subcutaneous -Post Debridement Size (cm) - Length 0.7 0.3 0.1 -Post Debridement Size (cm) - Width 1.1 0.2 0.1 -Post Debridement Size (cm) - Depth 0.1 0.1 0.1 -Total Square Cm 0.77 0.06 0.01 -Wound/Ulcer Outcome Not Healed Not Healed Not Healed -Ulcer Cleansing Not Cleansed Rinsed/ Not Cleansed Irrigated with Saline -Foul Odor after Cleansing No No No -Bioengineered Tissue No No No -Bleeding Controlled with Pressure Pressure NA -Offloading No No No -Treatment Response Procedure Procedure Procedure Tolerated Well Tolerated Well Tolerated Well Pain Scale: 0-10 Numeric Is Patient Pain Free? Yes Yes Yes 05/04/18 05/11/18 16:08 16:09 Wound Center Nurse 2 #4 left anterior jain -Time 16:08 16:11 -Correct Patient Yes Yes -Correct Side, Site, Position Yes Yes -Correct Procedure Yes Yes -Procedure Performed Yes Yes -Type of Procedure Debridement Debridement -Clinical Debridement Subcutaneous Subcutaneous -Post Debridement Size (cm) - Length 1.6 1.6 -Post Debridement Size (cm) - Width 1.3 1.4 -Post Debridement Size (cm) - Depth 0.1 0.1 -Total Square Cm 2.08 2.24 -Wound/Ulcer Outcome Not Healed Not Healed -Ulcer Cleansing Not Cleansed Rinsed/ Irrigated with Saline -Foul Odor after Cleansing No No -Bioengineered Tissue Yes No -Type of bioengineered Tissue EPIFIX EPIFIX -Expiration Date 11/09/22 11/09/22 -Product Lot Number [id number] -Percent Used 100 100 -Bleeding Controlled with Pressure Pressure -Other SALINE LOT # [id number] -Offloading No No -Treatment Response Procedure Procedure Tolerated Well Tolerated Well #3 left posterior leg -Time 16:09 16:11 -Correct Patient Yes Yes -Correct Side, Site, Position Yes Yes -Correct Procedure Yes Yes -Procedure Performed Yes Yes -Type of Procedure Debridement Debridement -Clinical Debridement Subcutaneous Subcutaneous -Post Debridement Size (cm) - Length 0.4 0.1 -Post Debridement Size (cm) - Width 0.4 0.1 -Post Debridement Size (cm) - Depth 0.1 0.1 -Total Square Cm 0.16 0.01 -Wound/Ulcer Outcome Not Healed Not Healed -Ulcer Cleansing Not Cleansed Rinsed/ Irrigated with Saline -Foul Odor after Cleansing No No -Bioengineered Tissue No No -Bleeding Controlled with Pressure Pressure -Offloading No No -Treatment Response Procedure Procedure Tolerated Well Tolerated Well #2 left lateral leg -Time 16:09 16:11 -Correct Patient Yes Yes -Correct Side, Site, Position Yes Yes -Correct Procedure Yes Yes -Procedure Performed Yes Yes -Type of Procedure Debridement Debridement -Clinical Debridement Subcutaneous Subcutaneous -Post Debridement Size (cm) - Length 0.4 0.3 -Post Debridement Size (cm) - Width 0.3 0.3 -Post Debridement Size (cm) - Depth 0.1 0.1 -Total Square Cm 0.12 0.09 -Wound/Ulcer Outcome Not Healed Not Healed -Ulcer Cleansing Not Cleansed Rinsed/ Irrigated with Saline -Foul Odor after Cleansing No No -Bioengineered Tissue No No -Bleeding Controlled with NA Pressure -Offloading No No -Treatment Response Procedure Procedure Tolerated Well Tolerated Well Pain Scale: 0-10 Numeric Is Patient Pain Free? Yes Yes Wound debrided: Left anterior, posterior, and lateral venous leg ulcer Laterality: Left Type of Debridement: Excisional debridement Anesthesia Used: 5% Lidocaine Gel Depth: in the subcutaneous layer Percentage of wound debrided: 100 Instrument Used: 7mm curette Tissue Removed: Slough and devitalized tissue Severity: Fat Layer Exposed Amount of bleeding with debridement: Mild Bleeding Controlled with: Pressure Patient tolerated procedure well Assessment/Plan Assessment: Nonhealing ulcers to the left lower extremity, posterior, anterior, and lateral Plan: The patient was seen and examined at the wound center today and was updated on the plan of care. A subcutaneous debridement was performed today. The patient tolerated the procedure well. The patients wound care will consist of: To left anterior lower extremity ulcer Epfix #2 was applied after subcutaneous debridement, it was then covered with the wound veil and a thin layer of hydrogel, and secured with Steri-Strips, 100% of the Epifix was used with 0% waste. Patient tolerated the procedure well. Applying elizabet to left posterior and lateral lower extremity ulcers . She will continue with her compression stockings. Wound cultures were collected prior and showed MRSA and completed a course of doxy. Baseline bloodwork essentially within normal limits. Vascular studies showed venous insufficiency and The resting right ankle?brachial index was calculated to be 1.21. The resting left ankle?brachial index was calculated to be 1.14. The patient was referred to Dr. Hadley for consultation and per patient stated that she will be having sclerotherapy done next week, will request Dr. Hadley's note for continuity of care. Patient educated on the importance of diet on wound healing and instructed to increase protein and vitamin C intake. Patient instructed to take Tylenol prior to her next debridement. Discussed red flag symptoms of cellulitis and infection that require urgent medical attention. Patient verbalized understanding. Patient will follow up at wound healing center in 2 weeks due to scheduling conflict or sooner if needed. This note was generated with [employer] dictation software. It may contain incorrect words, spelling, and punctuation that were not noted in checking the note before signing. Code Visit 111xxx-113xx: 77857 Zena subq tissue 20 sq cm/< 150xxx-152xx: 47700 Skin sub graft trnk/arm/leg
== END 2018-05-11 23:59 ==
LOC: WC 15:45
PROVIDERS: Family Provider Internal Medicine; PCP Internal Medicine; Referring Provider Nurse Practitioner Family; Visit Provider Nurse Practitioner Family
DX: I83.028 Varicose veins of left lower extremity with ulcer other part of lower leg (principal); L97.822 Non-pressure chronic ulcer of other part of left lower leg with fat layer exposed; R60.0 Localized edema; R09.89 Other specified symptoms and signs involving the circulatory and respiratory systems; E78.5 Hyperlipidemia, unspecified; I10 Essential (primary) hypertension; L97.821 Non-pressure chronic ulcer of other part of left lower leg limited to breakdown of skin; Z86.14 Personal history of Methicillin resistant Staphylococcus aureus infection; I73.9 Peripheral vascular disease, unspecified
CPT/HCPCS: 11042; 15271; Q4186

== ENCOUNTER 2018-05-30 17:21 | Emergency (ER) | payer MEDICARE, OTHER, SELFPAY ==
[2018-05-25 16:07] VITALS: BMI 35.4
[2018-05-30 17:22] VITALS: BP 153/86; PULSE 105; RESP 18; TEMP 37; O2SAT 92; BMI 41.8
--- NOTE | 2018-05-30 18:08 | ED.DCSUM_ITS ---
- ER Visit Summary Date of Service: 05/30/18 Chief Complaint: Fever History of Present Illness: The patient is a 63 F history of hypertension, high cholesterol and depression. States she was seen in urgent care yesterday. Diagnosed with UTI. Started on antibiotic that she takes twice a day. Has developed now nausea, vomiting diarrhea. She has had fevers as high as 1025 since last Tuesday. She denies any dysuria. Denies any back pain. No chest pain or shortness of breath. No abdominal pain. Physical Examination: Well-appearing older female. Vital signs are stable. She is afebrile. She does not look septic or toxic. She is in no distress. HEENT exam unremarkable. Moist mucous membranes. Neck nontender. No lymphadenopathy. Lungs clear to auscultation bilaterally. Heart regular rhythm no murmur. Rate about 105. Abdomen is soft and nontender. Normal bowel sounds no peritoneal signs. Extremities moves all 4 neurovascular intact. Neurologically is awake and alert with no focal motor deficits. Test Results: CBC shows a white count 1.8. Hemoglobin 12. No bands. Electrolytes unremarkable normal creatinine and gap. UA normal. No signs of infection. She is on been on antibiotic 1 day. She and I discussed all the test results. Specifically the urinalysis. Emergency Department Course and Treatment: Patient treated with a liter of normal saline. On repeat exam he is doing well at 1957..\ Likely patient has had a viral syndrome. I do not see any signs of a UTI. She and I discussed the option of stopping her antibiotic. She did not want a Zofran at home for nausea. Treatment Plan: Fluids and rest. Follow-up with her primary care physician. Disposition: Discharge Impression: Acute viral syndrome This note was generated with [employer] software. It may contain incorrect words, spelling, and punctuation that were not noted in review of the chart prior to signing ED Disposition - Plan for ED Patient: Referrals: Binta Farah MD [Primary Care Provider] -
[2018-05-30 18:45] LABS: Absolute Lymphocyte Count 1.11 X10^3/ul (0.83-4.51); Absolute Neutrophil Count 8.8 X10^3/uL (2.0-7.7); Basophil# 0.02 X10^3/uL; Basophil% 0.2 % (0-1); Eosinophil# 0.09 X10^3/uL; Eosinophils% 0.8 % (0-5); Hematocrit 39.2 % (37-47); Hemoglobin 12.7 g/dl (12.0-15.0); Lymphocyte # 1.11 X10^3/ul (4.0); Lymphocyte % 9.4 % (19-41); Mean Corp Hgb Conc 32.4 g/gl (32-36); Mean Corpuscular Hgb 30.5 pg (27.0-32.0); Mean Platelet Vol. 11.7 fl (6.2-12.0); Monocyte% 14.4 % (0-10); Neutrophil # 8.83 X10^3/uL (2.7-7.7); Neutrophil % 74.9 % (47-70); Platelet Count 161 K/mm3 (150-450); RBC Distribution Width CV 12.7 % (11.6-14.6); RBC Distribution Width SD 43.8 fl (35.1-43.9); Red Blood Count 4.17 M/mm3 (4.2-5.4); White Blood Count 11.8 K/mm3 (4.4-11.0)
[2018-05-30 18:47] LABS: Differential Indicated SCAN CRITERIA MET; POSITIVE COUNT NO; POSITIVE DIFFERENTIAL YES; POSITIVE MORPHOLOGY NO
[2018-05-30 18:52] LABS: Anion Gap 11 (5-15); BUN 14 mg/dL (7-18); BUN/Creat Ratio 20.6 RATIO (10-20); Chloride 103 mmol/L (98-107); Creatinine, Serum 0.68 mg/dL (0.55-1.02); EST Glomerular Filtration Rate 92 mL/min (>60); Est Glom Filt Rate - Afr Amer 112 mL/min (>60); Estimated Creatinine Clearance 68.23 ml/min; Glucose 111 mg/dL (74-106); Sodium Level 139 mmol/L (136-145)
[2018-05-30 18:53] VITALS: BP 131/65; PULSE 95; RESP 20; TEMP 37.4; O2SAT 93
[2018-05-30] MEDS: 0.9% Normal Saline 1,000 ML 1000 ML IV (18:53)
[2018-05-30] MEDS: Ondansetron 4 MG/2 ML Vial IV (18:53)
[2018-05-30 18:55] LABS: Bacteria 0 SEEN /hpf (None Seen); Red Blood Cells-Urine 0 SEEN /hpf (0-5); Squamous Epithelial Cells - UA 0 SEEN /hpf (5-10)
[2018-05-30 19:04] VITALS: BP 131/65; PULSE 93; RESP 17; TEMP 37.4; O2SAT 96
[2018-05-30 19:13] LABS: Color, Urine Yellow (Yellow); Glucose, Dipstick Normal (Normal); Ketone-Dipstick 5 mg/dl (Negative); Leukocyte Esterase-Dipstick 25 /ul (Negative); Nitrite-Dipstick Negative (Negative); Occult Blood-Urine 10 /ul (Negative); Protein-Dipstick 30 mg/dl (Negative); Urine Bilirubin Dipstick Negative (Negative); Urine Clarity Clear (Clear); Urine Urobilinogen 1 mg/dl (Normal)
[2018-05-30 19:21] LABS: Mucous, Urine RARE /hpf (<or=2+); White Blood Cells 0-5 SEEN /hpf (0-5)
--- NOTE | 2018-05-30 20:11 | ED.DEP ---
ED Disposition - Plan for ED Patient: Disposition: Home or Assisted Living Instructions: ED Viral Syndrome Referrals: Binta Farah MD [Primary Care Provider] - 3-5 Days if not improving Additional Instructions: Fluids and rest. Tylenol for fever. Return if feeling worse or follow-up with your primary care provider if not improving.
[2018-05-30 20:13] VITALS: BP 123/71; PULSE 96; RESP 18; O2SAT 92
== END 2018-05-30 20:27 | disposition home or self-care (01) ==
PROVIDERS: Emergency Provider Emergency Medicine; Family Provider Internal Medicine; PCP Internal Medicine
DX: B34.9 Viral infection, unspecified (principal); R11.2 Nausea with vomiting, unspecified; R19.7 Diarrhea, unspecified; I10 Essential (primary) hypertension; E78.00 Pure hypercholesterolemia, unspecified; F32.9 Major depressive disorder, single episode, unspecified; Z79.899 Other long term (current) drug therapy
CPT/HCPCS: 80048; 81001; 85025; 96361; 96374; 99283; J7030; A4216; J2405

== ENCOUNTER 2018-06-01 15:45 | Outpatient (RCR) | payer MEDICARE, OTHER, SELFPAY ==
[2018-05-12 01:22] VITALS: BP 139/81; PULSE 96; RESP 18; TEMP 36.8
[2018-05-25 16:07] VITALS: BP 142/81; PULSE 91; RESP 20; TEMP 36.8; BMI 35.4
--- NOTE | 2018-05-25 19:35 | PCM.WC.PN ---
(1) Venous stasis ulcer with varicose veins of left lower extremity Status: Acute Code(s): I83.029 - Varicose veins of left lower extremity with ulcer of unspecified site; L97.929 - Non-pressure chronic ulcer of unspecified part of left lower leg with unspecified severity Comment: x 3 anterior, posterior, and lateral left lower extremity (2) PVD (peripheral vascular disease) Status: Acute Code(s): I73.9 - Peripheral vascular disease, unspecified (3) Bilateral lower extremity edema Status: Chronic Code(s): R60.0 - Localized edema (4) Decreased dorsalis pedis pulse Status: Chronic Code(s): R09.89 - Other specified symptoms and signs involving the circulatory and respiratory systems (5) Nonhealing ulcer of left lower extremity with fat layer exposed Status: Chronic Code(s): L97.922 - Non-pressure chronic ulcer of unspecified part of left lower leg with fat layer exposed Comment: x 3 Type of Wound Date of Service: 05/25/18 Chief Complaint: Nonhealing ulcers to the left lower extremity times 3 months History of Wound: This is a 62-year-old white female who presents to the wound healing center today with complaints of 3 lower extremity ulcers times 3 months. She states that these ulcerations occurred when she hit her left lower extremity on a laundry cart 3 months ago. She states that she typically wears compression stockings and that for wound care she has been using Aquacel extra that she ordered online. She denies any signs of infection at this time, though she does state that the ulcerations are tender and draining serosanguineous fluid. She denies any fever, chills, nausea, vomiting, shortness of breath, chest pain or pressure, syncope or presyncopal episodes. She denies any other aggravating or relieving factors. She has been seen in 2013 here for nonhealing wounds of the lower extremity as well. Progress of Wound: Improvement noted to the left anterior lower extremity ulceration with the use of Epifix, both the posterior and lateral ulcers have healed, patient does note a surrounding rash to the area which is somewhat itchy and red, has not use any [id number] treatments for this. Denies any systemic signs of infection. The patient otherwise denies any fever, chills, nausea, vomiting, shortness of breath, chest pain or pressure, palpitations, orthopnea, lower extremity edema, syncope or presyncopal episodes. - Physical Exam Vital Signs Temp Pulse Resp BP 98.2 F 91 20 H 142/81 H 05/25/18 16:07 05/25/18 16:07 05/25/18 16:07 05/25/18 16:07 General: Alert, Oriented x3, Cooperative, No apparent distress HEENT: Atraumatic Oral: Moist Mucosa Lungs: Clear to auscultation, Normal air movement Cardiovascular: Regular rate, Regular Rhythm, Normal S1, Normal S2 Abdomen: Soft, Non Tender, Non-Distended, Obese Extremities: No clubbing, No cyanosis, Diminished Peripheral Pulses - Bilateral dorsal pedis pulses, Edema - Generalized bilateral lower extremity edema Skin: Ulcer/ Wound - Ulceration to left anterior lower extremity with adherent slough, no signs of infection at this time., Rash Present - Left lateral lower extremity maculopapular rash present, erythematous Neurological: Neuro grossly intact Psych/Mental Status: Normal Affect, Appropriate, Alert and oriented to time, place, person, mood and affect Debridement Note Post-Debridement Measurements/Treatment WC - Nurse 2 - General Ulcer CM Notes Start: 05/25/18 16:06 Freq: Status: Active Protocol: Activity Type Activity Date Activity User E-Sign Co-Sign Detail Recorded Client Recorded Date Recorded By Document 05/25/18 16:47 DV [id number] 05/25/18 17:02 DV 05/25/18 16:47 Wound Center Nurse 2 #4 left anterior jain -Time 16:48 -Correct Patient Yes -Correct Side, Site, Position Yes -Correct Procedure Yes -Procedure Performed Yes -Type of Procedure Debridement -Clinical Debridement Subcutaneous -Post Debridement Size (cm) - Length 0.4 -Post Debridement Size (cm) - Width 0.4 -Post Debridement Size (cm) - Depth 0.1 -Total Square Cm 0.16 -Wound/Ulcer Outcome Not Healed -Ulcer Cleansing Rinsed/ Irrigated with Saline -Foul Odor after Cleansing No -Bioengineered Tissue No -Type of bioengineered Tissue EPIFIX -Expiration Date 11/19/22 -Product Lot Number [id number] -Percent Used 100 -Saline Lot Number [id number] -Topical Lidocaine (%) 4 -Bleeding Controlled with Pressure -Offloading No -Treatment Response Procedure Tolerated Well #3 left posterior leg -Time 16:56 -Correct Patient Yes -Correct Side, Site, Position Yes -Procedure Performed No -Post Debridement Size (cm) - Length 0 -Post Debridement Size (cm) - Width 0 -Post Debridement Size (cm) - Depth 0 -Total Square Cm 0 -Wound/Ulcer Outcome Healed- Epithelialized #2 left lateral leg -Time 16:56 -Correct Patient Yes -Correct Side, Site, Position Yes -Procedure Performed No -Post Debridement Size (cm) - Length 0 -Post Debridement Size (cm) - Width 0 -Post Debridement Size (cm) - Depth 0 -Total Square Cm 0 -Wound/Ulcer Outcome Healed- Epithelialized Pain Scale: 0-10 Numeric Is Patient Pain Free? Yes Wound debrided: Left anterior lower extremity ulcer Laterality: Left Type of Debridement: Excisional debridement Anesthesia Used: 5% Lidocaine Gel Depth: in the subcutaneous layer Percentage of wound debrided: 100 Instrument Used: 3mm curette Tissue Removed: Slough and devitalized tissue Severity: Fat Layer Exposed Amount of bleeding with debridement: Mild Bleeding Controlled with: Pressure Patient tolerated procedure well Assessment/Plan Assessment: Nonhealing ulcers to the left lower extremity, posterior, anterior, and lateral Plan: The patient was seen and examined at the wound center today and was updated on the plan of care. A subcutaneous debridement was performed today. The patient tolerated the procedure well. The patients wound care will consist of: To left anterior lower extremity ulcer Epfix was applied after subcutaneous debridement, it was then covered with the wound veil and a thin layer of hydrogel, and secured with Steri-Strips, 100% of the Epifix was used with 0% waste. Patient tolerated the procedure well. Other ulcerations have now healed, however she does have a surrounding rash to the area and therefore hydrocortisone cream was called to the pharmacy. She will continue with her compression stockings. Wound cultures were collected prior and showed MRSA and completed a course of doxy. Baseline bloodwork essentially within normal limits. Vascular studies showed venous insufficiency and The resting right ankle?brachial index was calculated to be 1.21. The resting left ankle?brachial index was calculated to be 1.14. The patient was referred to Dr. Hadley for consultation and per patient stated that she recently had sclerotherapy done , will request Dr. Hadley's note for continuity of care. Patient educated on the importance of diet on wound healing and instructed to increase protein and vitamin C intake. Patient instructed to take Tylenol prior to her next debridement. Discussed red flag symptoms of cellulitis and infection that require urgent medical attention. Patient verbalized understanding. Patient will follow up at wound healing center in one week or sooner if needed. This note was generated with [employer] dictation software. It may contain incorrect words, spelling, and punctuation that were not noted in checking the note before signing. Code Visit 150xxx-152xx: [id number] Skin sub graft trnk/arm/leg
--- NOTE | 2018-05-31 09:40 | PN.PCM_ITS ---
(1) Venous stasis ulcer with varicose veins of left lower extremity Status: Acute Code(s): I83.029 - Varicose veins of left lower extremity with ulcer of unspecified site; L97.929 - Non-pressure chronic ulcer of unspecified part of left lower leg with unspecified severity Comment: x 3 anterior, posterior, and lateral left lower extremity (2) PVD (peripheral vascular disease) Status: Acute Code(s): I73.9 - Peripheral vascular disease, unspecified (3) Bilateral lower extremity edema Status: Chronic Code(s): R60.0 - Localized edema (4) Decreased dorsalis pedis pulse Status: Chronic Code(s): R09.89 - Other specified symptoms and signs involving the circulatory and respiratory systems (5) Nonhealing ulcer of left lower extremity with fat layer exposed Status: Chronic Code(s): L97.922 - Non-pressure chronic ulcer of unspecified part of left lower leg with fat layer exposed Comment: x 3 Type of Wound Date of Service: 05/25/18 Chief Complaint: Nonhealing ulcers to the left lower extremity times 3 months History of Wound: This is a 62-year-old white female who presents to the wound healing center today with complaints of 3 lower extremity ulcers times 3 months. She states that these ulcerations occurred when she hit her left lower extremity on a laundry cart 3 months ago. She states that she typically wears compression stockings and that for wound care she has been using Aquacel extra that she ordered online. She denies any signs of infection at this time, though she does state that the ulcerations are tender and draining serosanguineous fluid. She denies any fever, chills, nausea, vomiting, shortness of breath, chest pain or pressure, syncope or presyncopal episodes. She denies any other aggravating or relieving factors. She has been seen in 2013 here for nonhealing wounds of the lower extremity as well. Progress of Wound: Improvement noted to the left anterior lower extremity ulceration with the use of Epifix, both the posterior and lateral ulcers have healed, patient does note a surrounding rash to the area which is somewhat itchy and red, has not use any [id number] treatments for this. Denies any systemic signs of infection. The patient otherwise denies any fever, chills, nausea, vomiting, shortness of breath, chest pain or pressure, palpitations, orthopnea, lower extremity edema, syncope or presyncopal episodes. - Physical Exam Vital Signs Temp Pulse Resp BP 98.2 F 91 20 H 142/81 H 05/25/18 16:07 05/25/18 16:07 05/25/18 16:07 05/25/18 16:07 General: Alert, Oriented x3, Cooperative, No apparent distress HEENT: Atraumatic Oral: Moist Mucosa Lungs: Clear to auscultation, Normal air movement Cardiovascular: Regular rate, Regular Rhythm, Normal S1, Normal S2 Abdomen: Soft, Non Tender, Non-Distended, Obese Extremities: No clubbing, No cyanosis, Diminished Peripheral Pulses - Bilateral dorsal pedis pulses, Edema - Generalized bilateral lower extremity edema Skin: Ulcer/ Wound - Ulceration to left anterior lower extremity with adherent slough, no signs of infection at this time., Rash Present - Left lateral lower extremity maculopapular rash present, erythematous Neurological: Neuro grossly intact Psych/Mental Status: Normal Affect, Appropriate, Alert and oriented to time, place, person, mood and affect Debridement Note Post-Debridement Measurements/Treatment WC - Nurse 2 - General Ulcer CM Notes Start: 05/25/18 16:06 Freq: Status: Active Protocol: Activity Type Activity Date Activity User E-Sign Co-Sign Detail Recorded Client Recorded Date Recorded By Document 05/25/18 16:47 DV [id number] 05/25/18 17:02 DV 05/25/18 16:47 Wound Center Nurse 2 #4 left anterior jain -Time 16:48 -Correct Patient Yes -Correct Side, Site, Position Yes -Correct Procedure Yes -Procedure Performed Yes -Type of Procedure Debridement -Clinical Debridement Subcutaneous -Post Debridement Size (cm) - Length 0.4 -Post Debridement Size (cm) - Width 0.4 -Post Debridement Size (cm) - Depth 0.1 -Total Square Cm 0.16 -Wound/Ulcer Outcome Not Healed -Ulcer Cleansing Rinsed/ Irrigated with Saline -Foul Odor after Cleansing No -Bioengineered Tissue No -Type of bioengineered Tissue EPIFIX -Expiration Date 11/19/22 -Product Lot Number [id number] -Percent Used 100 -Saline Lot Number [id number] -Topical Lidocaine (%) 4 -Bleeding Controlled with Pressure -Offloading No -Treatment Response Procedure Tolerated Well #3 left posterior leg -Time 16:56 -Correct Patient Yes -Correct Side, Site, Position Yes -Procedure Performed No -Post Debridement Size (cm) - Length 0 -Post Debridement Size (cm) - Width 0 -Post Debridement Size (cm) - Depth 0 -Total Square Cm 0 -Wound/Ulcer Outcome Healed- Epithelialized #2 left lateral leg -Time 16:56 -Correct Patient Yes -Correct Side, Site, Position Yes -Procedure Performed No -Post Debridement Size (cm) - Length 0 -Post Debridement Size (cm) - Width 0 -Post Debridement Size (cm) - Depth 0 -Total Square Cm 0 -Wound/Ulcer Outcome Healed- Epithelialized Pain Scale: 0-10 Numeric Is Patient Pain Free? Yes Wound debrided: Left anterior lower extremity ulcer Laterality: Left Type of Debridement: Excisional debridement Anesthesia Used: 5% Lidocaine Gel Depth: in the subcutaneous layer Percentage of wound debrided: 100 Instrument Used: 3mm curette Tissue Removed: Slough and devitalized tissue Severity: Fat Layer Exposed Amount of bleeding with debridement: Mild Bleeding Controlled with: Pressure Patient tolerated procedure well Assessment/Plan Assessment: Nonhealing ulcers to the left lower extremity, posterior, anterior, and lateral Plan: The patient was seen and examined at the wound center today and was updated on the plan of care. A subcutaneous debridement was performed today. The patient tolerated the procedure well. The patients wound care will consist of: To left anterior lower extremity ulcer Epfix was applied after subcutaneous debridement, it was then covered with the wound veil and a thin layer of hydrogel, and secured with Steri-Strips, 100% of the Epifix was used with 0% waste. Patient tolerated the procedure well. Other ulcerations have now hea led, however she does have a surrounding rash to the area and therefore hydrocortisone cream was called to the pharmacy. She will continue with her compression stockings. Wound cultures were collected prior and showed MRSA and completed a course of doxy. Baseline bloodwork essentially within normal limits. Vascular studies showed venous insufficiency and The resting right ankle?brachial index was calculated to be 1.21. The resting left ankle?brachial index was calculated to be 1.14. The patient was referred to Dr. Hadley for consultation and per patient stated that she recently had sclerotherapy done , will request Dr. Hadley's note for continuity of care. Patient educated on the importance of diet on wound healing and instructed to increase protein and vitamin C intake. Patient instructed to take Tylenol prior to her next debridement. Discussed red flag symptoms of cellulitis and infection that require urgent medical attention. Patient verbalized understanding. Patient will follow up at wound healing center in one week or sooner if needed. This note was generated with [employer] dictation software. It may contain incorrect words, spelling, and punctuation that were not noted in checking the note before signing. Code Visit 150xxx-152xx: [id number] Skin sub graft trnk/arm/leg
[2018-06-01 15:51] VITALS: BP 151/91; PULSE 80; RESP 16; TEMP 36.6; BMI 35.4
--- NOTE | 2018-06-01 17:07 | PCM.WC.PN ---
(1) Venous stasis ulcer with varicose veins of left lower extremity Status: Acute Current Visit: Yes Code(s): I83.029 - Varicose veins of left lower extremity with ulcer of unspecified site; L97.929 - Non-pressure chronic ulcer of unspecified part of left lower leg with unspecified severity Comment: x 3 anterior, posterior, and lateral left lower extremity (2) PVD (peripheral vascular disease) Status: Acute Current Visit: Yes Code(s): I73.9 - Peripheral vascular disease, unspecified (3) Bilateral lower extremity edema Status: Chronic Current Visit: Yes Code(s): R60.0 - Localized edema (4) Decreased dorsalis pedis pulse Status: Chronic Current Visit: Yes Code(s): R09.89 - Other specified symptoms and signs involving the circulatory and respiratory systems (5) Nonhealing ulcer of left lower extremity with fat layer exposed Status: Chronic Current Visit: Yes Code(s): L97.922 - Non-pressure chronic ulcer of unspecified part of left lower leg with fat layer exposed Comment: x 3 Type of Wound Date of Service: 06/01/18 Chief Complaint: Nonhealing ulcers to the left lower extremity times 3 months History of Wound: This is a 62-year-old white female who presents to the wound healing center today with complaints of 3 lower extremity ulcers times 3 months. She states that these ulcerations occurred when she hit her left lower extremity on a laundry cart 3 months ago. She states that she typically wears compression stockings and that for wound care she has been using Aquacel extra that she ordered online. She denies any signs of infection at this time, though she does state that the ulcerations are tender and draining serosanguineous fluid. She denies any fever, chills, nausea, vomiting, shortness of breath, chest pain or pressure, syncope or presyncopal episodes. She denies any other aggravating or relieving factors. She has been seen in 2013 here for nonhealing wounds of the lower extremity as well. Progress of Wound: All wounds have healed and the patient's rash/dermatitis to her left lower extremity has resolved with the use of hydrocortisone cream as well. Denies any systemic signs of infection. The patient otherwise denies any fever, chills, nausea, vomiting, shortness of breath, chest pain or pressure, palpitations, orthopnea, lower extremity edema, syncope or presyncopal episodes. - Physical Exam Vital Signs Temp Pulse Resp BP 98 F 80 16 151/91 H 06/01/18 15:51 06/01/18 15:51 06/01/18 15:51 06/01/18 15:51 General: Alert, Oriented x3, Cooperative, No apparent distress HEENT: Atraumatic Oral: Moist Mucosa Lungs: Clear to auscultation Cardiovascular: Regular rate Abdomen: Soft, Non Tender, Obese Extremities: No clubbing, No cyanosis, Diminished Peripheral Pulses, Edema Skin: Ulcer/ Wound - Wounds to left lower extremity has healed, Rash Present - Rash to left lower extremity improving, small amount of residual erythema, - - Chronic venous changes lower extremity Wound Measurements and Assessment WC - Nurse 1 - General Ulcer Measurement Start: 05/25/18 16:06 Freq: Status: Active Protocol: Activity Type Activity Date Activity User E-Sign Co-Sign Detail Recorded Client Recorded Date Recorded By Document 06/01/18 15:51 [facility] [id number] 06/01/18 15:57 [facility] 06/01/18 15:51 Wound Center Nurse 1 [Ulcer Assessment] #4 left anterior jain -Combined with other wound No -Current Size (cm) - Length 0.1 -Current Size (cm) - Width 0.1 -Current Size (cm) - Depth 0.1 -Total Square Cm 0.01 -Date of Last Picture (Recall this 06/01/18 field) -Photo Taken Yes -Epithelialization Large 67-100% -Tunneling No -Undermining/Tunneling No -Circular Undermining No -Exudate Amt None Present -Temperature (Patricia-wound Skin No Abnormality Appearance) (Pt Warm) -Tenderness on Palpation (Patricia-wound No Skin Appearance) -Ulcer Cleansing Rinsed/ Irrigated with Saline -Foul Odor after Cleansing No -Anesthetic Used 4% Lidocaine Solution [Edema Assessment] -Lower Limb Edema Present Yes -Right Calf (cm) 43.5 -Right Ankle (cm) 23.5 WC - Nurse 2 - General Ulcer CM Notes Start: 05/25/18 16:06 Freq: Status: Active Protocol: Activity Type Activity Date Activity User E-Sign Co-Sign Detail Recorded Client Recorded Date Recorded By Document 06/01/18 16:17 AN [id number] 02/21/19 16:19 AN 06/01/18 16:17 Wound Center Nurse 2 [Procedure/Treatment] #4 left anterior jain -Time 16:17 -Correct Patient Yes -Correct Side, Site, Position Yes -Correct Procedure Yes -Procedure Performed No -Post Debridement Size (cm) - Length 0 -Post Debridement Size (cm) - Width 0 -Post Debridement Size (cm) - Depth 0 -Total Square Cm 0 -Wound/Ulcer Outcome Healed- Epithelialized [See Physician Procedure note for Specifics] Neurological: Neuro grossly intact Psych/Mental Status: Normal Affect, Appropriate, Alert and oriented to time, place, person, mood and affect Debridement Note Post-Debridement Measurements/Treatment WC - Nurse 2 - General Ulcer CM Notes Start: 05/25/18 16:06 Freq: Status: Active Protocol: Activity Type Activity Date Activity User E-Sign Co-Sign Detail Recorded Client Recorded Date Recorded By Document 05/25/18 16:47 DV [id number] 05/25/18 17:02 DV Document 06/01/18 16:17 AN [id number] 06/01/18 16:19 AN 05/25/18 06/01/18 16:47 16:17 Wound Center Nurse 2 #4 left anterior jain -Time 16:48 16:17 -Correct Patient Yes Yes -Correct Side, Site, Position Yes Yes -Correct Procedure Yes Yes -Procedure Performed Yes No -Type of Procedure Debridement -Clinical Debridement Subcutaneous -Post Debridement Size (cm) - Length 0.4 0 -Post Debridement Size (cm) - Width 0.4 0 -Post Debridement Size (cm) - Depth 0.1 0 -Total Square Cm 0.16 0 -Wound/Ulcer Outcome Not Healed Healed- Epithelialized -Ulcer Cleansing Rinsed/ Irrigated with Saline -Foul Odor after Cleansing No -Bioengineered Tissue No -Type of bioengineered Tissue EPIFIX -Expiration Date 11/19/22 -Product Lot Number [id number] -Percent Used 100 -Saline Lot Number [id number] -Topical Lidocaine (%) 4 -Bleeding Controlled with Pressure -Offloading No -Treatment Response Procedure Tolerated Well #3 left posterior leg -Time 16:56 -Correct Patient Yes -Correct Side, Site, Position Yes -Procedure Performed No -Post Debridement Size (cm) - Length 0 -Post Debridement Size (cm) - Width 0 -Post Debridement Size (cm) - Depth 0 -Total Square Cm 0 -Wound/Ulcer Outcome Healed- Epithelialized #2 left lateral leg -Time 16:56 -Correct Patient Yes -Correct Side, Site, Position Yes -Procedure Performed No -Post Debridement Size (cm) - Length 0 -Post Debridement Size (cm) - Width 0 -Post Debridement Size (cm) - Depth 0 -Total Square Cm 0 -Wound/Ulcer Outcome Healed- Epithelialized Pain Scale: 0-10 Numeric Is Patient Pain Free? Yes No debridement was completed today Assessment/Plan Active Problems Decreased dorsalis pedis pulse (Chronic) Bilateral lower extremity edema (Chronic) Nonhealing ulcer of left lower extremity with fat layer exposed (Chronic) x 3 PVD (peripheral vascular disease) (Acute) Venous stasis ulcer with varicose veins of left lower extremity (Acute) x 3 anterior, posterior, and lateral left lower extremity Assessment: Nonhealing ulcers to the left lower extremity, posterior, anterior, and lateral Plan: The patient was seen and examined at the wound center today and was updated on the plan of care. All of her ulcers are healed and her dermatitis rash has resolved. Discussed remaining compliant with her compression stockings and following up with Dr. Hadley and vascular. Discussed covering the recently healed site with gauze for wound protection. Discussed continuing to increase her protein and vitamin C intake for wound healing. Patient will be discharged from the wound center in follow-up as needed. Maia disclaimer Code Visit Office Visits / Consults: [id number] OV L3 Est
--- NOTE | 2018-06-02 17:10 | PN.PCM_ITS ---
(1) Venous stasis ulcer with varicose veins of left lower extremity Status: Acute Current Visit: Yes Code(s): I83.029 - Varicose veins of left lower extremity with ulcer of unspecified site; L97.929 - Non-pressure chronic ulcer of unspecified part of left lower leg with unspecified severity Comment: x 3 anterior, posterior, and lateral left lower extremity (2) PVD (peripheral vascular disease) Status: Acute Current Visit: Yes Code(s): I73.9 - Peripheral vascular disease, unspecified (3) Bilateral lower extremity edema Status: Chronic Current Visit: Yes Code(s): R60.0 - Localized edema (4) Decreased dorsalis pedis pulse Status: Chronic Current Visit: Yes Code(s): R09.89 - Other specified symptoms and signs involving the circulatory and respiratory systems (5) Nonhealing ulcer of left lower extremity with fat layer exposed Status: Chronic Current Visit: Yes Code(s): L97.922 - Non-pressure chronic ulcer of unspecified part of left lower leg with fat layer exposed Comment: x 3 Type of Wound Date of Service: 06/01/18 Chief Complaint: Nonhealing ulcers to the left lower extremity times 3 months History of Wound: This is a 62-year-old white female who presents to the wound healing center today with complaints of 3 lower extremity ulcers times 3 months. She states that these ulcerations occurred when she hit her left lower extremity on a laundry cart 3 months ago. She states that she typically wears compression stockings and that for wound care she has been using Aquacel extra that she ordered online. She denies any signs of infection at this time, though she does state that the ulcerations are tender and draining serosanguineous fluid. She denies any fever, chills, nausea, vomiting, shortness of breath, chest pain or pressure, syncope or presyncopal episodes. She denies any other aggravating or relieving factors. She has been seen in 2013 here for nonhealing wounds of the lower extremity as well. Progress of Wound: All wounds have healed and the patient's rash/dermatitis to her left lower extremity has resolved with the use of hydrocortisone cream as well. Denies any systemic signs of infection. The patient otherwise denies any fever, chills, nausea, vomiting, shortness of breath, chest pain or pressure, palpitations, orthopnea, lower extremity edema, syncope or presyncopal episodes. - Physical Exam Vital Signs Temp Pulse Resp BP 98 F 80 16 151/91 H 06/01/18 15:51 06/01/18 15:51 06/01/18 15:51 06/01/18 15:51 General: Alert, Oriented x3, Cooperative, No apparent distress HEENT: Atraumatic Oral: Moist Mucosa Lungs: Clear to auscultation Cardiovascular: Regular rate Abdomen: Soft, Non Tender, Obese Extremities: No clubbing, No cyanosis, Diminished Peripheral Pulses, Edema Skin: Ulcer/ Wound - Wounds to left lower extremity has healed, Rash Present - Rash to left lower extremity improving, small amount of residual erythema, - - Chronic venous changes lower extremity Wound Measurements and Assessment WC - Nurse 1 - General Ulcer Measurement Start: 05/25/18 16:06 Freq: Status: Active Protocol: Activity Type Activity Date Activity User E-Sign Co-Sign Detail Recorded Client Recorded Date Recorded By Document 06/01/18 15:51 [facility] [id number] 06/01/18 15:57 [facility] 06/01/18 15:51 Wound Center Nurse 1 [Ulcer Assessment] #4 left anterior jain -Combined with other wound No -Current Size (cm) - Length 0.1 -Current Size (cm) - Width 0.1 -Current Size (cm) - Depth 0.1 -Total Square Cm 0.01 -Date of Last Picture (Recall this 06/01/18 field) -Photo Taken Yes -Epithelialization Large 67-100% -Tunneling No -Undermining/Tunneling No -Circular Undermining No -Exudate Amt None Present -Temperature (Patricia-wound Skin No Abnormality Appearance) (Pt Warm) -Tenderness on Palpation (Patricia-wound No Skin Appearance) -Ulcer Cleansing Rinsed/ Irrigated with Saline -Foul Odor after Cleansing No -Anesthetic Used 4% Lidocaine Solution [Edema Assessment] -Lower Limb Edema Present Yes -Right Calf (cm) 43.5 -Right Ankle (cm) 23.5 WC - Nurse 2 - General Ulcer CM Notes Start: 05/25/18 16:06 Freq: Status: Active Protocol: Activity Type Activity Date Activity User E-Sign Co-Sign Detail Recorded Client Recorded Date Recorded By Document 06/01/18 16:17 AN [id number] 02/21/19 16:19 AN 06/01/18 16:17 Wound Center Nurse 2 [Procedure/Treatment] #4 left anterior jain -Time 16:17 -Correct Patient Yes -Correct Side, Site, Position Yes -Correct Procedure Yes -Procedure Performed No -Post Debridement Size (cm) - Length 0 -Post Debridement Size (cm) - Width 0 -Post Debridement Size (cm) - Depth 0 -Total Square Cm 0 -Wound/Ulcer Outcome Healed- Epithelialized [See Physician Procedure note for Specifics] Neurological: Neuro grossly intact Psych/Mental Status: Normal Affect, Appropriate, Alert and oriented to time, place, person, mood and affect Debridement Note Post-Debridement Measurements/Treatment WC - Nurse 2 - General Ulcer CM Notes Start: 05/25/18 16:06 Freq: Status: Active Protocol: Activity Type Activity Date Activity User E-Sign Co-Sign Detail Recorded Client Recorded Date Recorded By Document 05/25/18 16:47 DV [id number] 05/25/18 17:02 DV Document 06/01/18 16:17 AN [id number] 06/01/18 16:19 AN 05/25/18 06/01/18 16:47 16:17 Wound Center Nurse 2 #4 left anterior jain -Time 16:48 16:17 -Correct Patient Yes Yes -Correct Side, Site, Position Yes Yes -Correct Procedure Yes Yes -Procedure Performed Yes No -Type of Procedure Debridement -Clinical Debridement Subcutaneous -Post Debridement Size (cm) - Length 0.4 0 -Post Debridement Size (cm) - Width 0.4 0 -Post Debridement Size (cm) - Depth 0.1 0 -Total Square Cm 0.16 0 -Wound/Ulcer Outcome Not Healed Healed- Epithelialized -Ulcer Cleansing Rinsed/ Irrigated with Saline -Foul Odor after Cleansing No -Bioengineered Tissue No -Type of bioengineered Tissue EPIFIX -Expiration Date 11/19/22 -Product Lot Number [id number] -Percent Used 100 -Saline Lot Number [id number] -Topical Lidocaine (%) 4 -Bleeding Controlled with Pressure -Offloading No -Treatment Response Procedure Tolerated Well #3 left posterior leg -Time 16:56 -Correct Patient Yes -Correct Side, Site, Position Yes -Procedure Performed No -Post Debridement Size (cm) - Length 0 -Post Debridement Size (cm) - Width 0 -Post Debridement Size (cm) - Depth 0 -Total Square Cm 0 -Wound/Ulcer Outcome Healed- Epithelialized #2 left lateral leg -Time 16:56 -Correct Patient Yes -Correct Side, Site, Position Yes -Procedure Performed No -Post Debridement Size (cm) - Length 0 -Post Debridement Size (cm) - Width 0 -Post Debridement Size (cm) - Depth 0 -Total Square Cm 0 -Wound/Ulcer Outcome Healed- Epithelialized Pain Scale: 0-10 Numeric Is Patient Pain Free? Yes No debridement was completed today Assessment/Plan Active Problems Decreased dorsalis pedis pulse (Chronic) Bilateral lower extremity edema (Chronic) Nonhealing ulcer of left lower extremity with fat layer exposed (Chronic) x 3 PVD (peripheral vascular disease) (Acute) Venous stasis ulcer with varicose veins of left lower extremity (Acute) x 3 anterior, posterior, and lateral left lower extremity Assessment: Nonhealing ulcers to the left lower extremity, posterior, anterior, and lateral Plan: The patient was seen and examined at the wound center today and was updated on the plan of care. All of her ulcers are healed and her dermatitis rash has resolved. Discussed remaining compliant with her compression stockings and following up with Dr. Hadley and vascular. Discussed covering the recently healed site with gauze for wound protection. Discussed continuing to increase her protein and vitamin C intake for wound healing. Patient will be discharged from the wound center in follow-up as needed. Maia disclaimer Code Visit Office Visits / Consults: [id number] OV L3 Est
== END 2018-06-08 23:59 ==
LOC: WC 15:45
PROVIDERS: Family Provider Internal Medicine; PCP Internal Medicine; Referring Provider Nurse Practitioner Family; Visit Provider Nurse Practitioner Family
DX: I83.028 Varicose veins of left lower extremity with ulcer other part of lower leg (principal); L97.822 Non-pressure chronic ulcer of other part of left lower leg with fat layer exposed; I73.9 Peripheral vascular disease, unspecified; R60.0 Localized edema
CPT/HCPCS: 15271; 99212; Q4186; G0463

== ENCOUNTER 2020-08-15 16:48 | Emergency (ER) | payer MEDICARE, OTHER, SELFPAY ==
[2020-08-15 16:48] VITALS: BMI 41.8
[2020-08-15 16:49] VITALS: BP 135/78; PULSE 96; RESP 15; TEMP 36.1; O2SAT 93; BMI 40.4
--- NOTE | 2020-08-15 17:19 | EDS_ITS ---
HPI History of Present Illness Chief Complaint: Abn Labs Narrative Narrative: 65-year-old female presenting due to elevated D-dimer which was taken as an outpatient. Patient states that about a week and a half ago she was having some pain behind her back between her shoulder blades. She states this is at rest and with exertion. She had difficulty rolling over secondary to pain. She states that she does have some shortness of breath. She also complains of burning in the epigastric region. Patient states that she does not have any cardiac problems. She is had a Covid vaccines and is immunized for this. Patient has no history of DVT/PE. Patient states that she has no pain cu rrently but does have some shortness of breath intermittently. [facility] Medical History Depression Former smoker Hypertension Home Medications lisinopril 10 mg PO DAILY 05/30/18 [History Last Taken Unknown] lorazepam 1 mg PO PRN PRN 05/30/18 [History Last Taken Unknown] nitrofurantoin monohyd/m-cryst 100 mg PO DAILY 05/30/18 [History Last Taken Unknown] sertraline 50 mg PO DAILY 05/30/18 [History Last Taken Unknown] aspirin 81 mg PO DAILY 08/15/20 [History Last Taken Unknown] Allergy/AdvReac Type Severity Reaction Status Date / Time No Known Allergies Allergy Verified 08/15/20 16:48 Social History Smoking Status: Former smoker ROS [facility] ED Constitutional Constitutional ED: Denies chills, fever(s) or sweats Eyes Eyes: Denies blurry vision or change in vision ENT ENT ED: Denies ear pain, rhinorrhea or sore throat Cardiovascular Cardiovascular: Reports chest pain; Denies palpitations or racing heartbeat Respiratory/Chest Respiratory/Chest: Reports dyspnea; Denies cough or sputum Gastrointestinal Gastrointestinal: Denies abdominal pain, constipation, diarrhea or vomiting Genitourinary Genitourinary ED: Denies dysuria, hematuria or urinary frequency Musculoskeletal Musculoskeletal: Reports back pain; Denies arthralgias, myalgias or neck pain Integumentary Denies abscess, Abrasions or rash Neurologic Neurologic: Denies headache(s), paresthesias or weakness Psychiatric Psychiatric: Denies anxiety, depression, suicidal ideation or suicidal thoughts Endocrine Endocrinology: Denies polydipsia or polyuria EXAM Physical Exam Const Vital Signs: 08/15/20 16:49 08/15/20 17:11 08/15/20 17:32 Temperature 97.0 F L Temperature Source Temporal Pulse Rate 96 Respiratory Rate 15 Respiratory Pattern Normal Blood Pressure 135/78 H Blood Pressure Mean 97 Pulse Ox 93 Oxygen Delivery Method Room Air Room Air 08/15/20 19:05 08/15/20 19:44 Temperature Temperature Source Pulse Rate 81 70 Respiratory Rate 18 18 Respiratory Pattern Blood Pressure 133/82 H 136/82 H Blood Pressure Mean 99 Pulse Ox 97 96 Oxygen Delivery Method Room Air Positive obese General Appearance ED: NAD; Negative for pallor Nutritional Appearance: obese HEENT Reports normocephalic, head/scalp atraumatic and moist mucous membranes Negative for trauma or tenderness Eyes PERRL and EOMs intact bilaterally Chest Wall inspection of chest normal and palpation of chest normal Resp normal respiratory effort and clear to auscultation bilaterally Auscultation: Negative for rales, rhonchi or wheezes Cardio regular rate and regular rhythm GI normal to inspection, nondistended, normoactive bowel sounds and non-distended Auscultation: normoactive bowel sounds Palpation: soft Narrative: Deferred Back/Spine no CVA tenderness General Back: Negative for CVA tenderness Cervical Spine: Negative for cervical spine tenderness Extremity normal to inspection General Extremety ED: Yes edema and tenderness General Extremity: edema Neuro oriented x3 and CN's II-XII intact bilaterally Sensorium / Orientation: alert Motor Exam: strength 5/5 throughout Psych mental status grossly normal Attitude: No agitated Skin no rashes or lesions noted and no wounds General Skin Exam: Negative for jaundice or pallor MDM MDM MDM Narrative Medical decision making narrative: 65-year-old female presenting with history of upper back pain which is now resolved. She also feels like she is a little bit dyspneic which is new. On examination her lungs are clear. Her heart is regul ar rate and rhythm. She did benefits counselor me that her D-dimer was 0.9 and therefore I did obtain CTA image. This does show a very small aortic aneurysm.Patient's troponin is negative. EKG performed on arrival shows sinus rhythm at 80 bpm without signs of ischemic change. Other lab work is unremarkable. I do not believe the patient needs a delta troponin based on her history. Patient is counseled to follow-up with her PCP to ensure resolution and is given return precautions. Impression: 1. Chest pain 2. Dyspnea Lab Data Attestation: I reviewed the patient's lab results. Labs: Laboratory Results - last 24 hr 08/15/20 08/15/20 17:05 17:05 WBC 9.2 RBC 4.75 Hgb 14.2 Hct 44.2 MCV 93.1 MCH 29.9 MCHC 32.1 RDW Std Deviation 43.6 RDW Coeff of Ervin 12.7 Plt Count 176 MPV 12.0 Immature Gran % (Auto) 0.200 Neut % (Auto) 46.7 L Lymph % (Auto) 38.5 Mckean % (Auto) 10.3 H Eos % (Auto) 3.4 Baso % (Auto) 0.9 Absolute Neuts (auto) 4.3 Absolute Lymphs (auto) 3.54 Nucleated RBC % 0 Sodium 141 Potassium 4.2 Chloride 106 Carbon Dioxide 31.0 Anion Gap 4 L BUN 17 Creatinine 0.99 Estim Creat Clear Calc 47.62 Est GFR (MDRD) Af Amer 72 Est GFR (MDRD) Non-Af 59 L BUN/Creatinine Ratio 17.1 Glucose 105 Calcium 9.0 Troponin I < 0.015 Radiography Diagnostic Testing: Radiology Impression Chest CTA 08/15/20 17:20 IMPRESSION: No evidence of pulmonary embolism. Mild aneurysmal dilatation of the ascending aorta measuring 4.1 cm in diameter. Mild emphysema. No consolidation. Electronically Signed: Quirino Sims MD at 18:37 EDT Tel , Service support , Discharge Plan Triage Chief Complaint: Abn Labs ED Provider: Howard Burns Dx/Rx/DC Orders Clinical Impression: Aortic aneurysm Instructions: ED Dyspnea Prescriptions: No Action lisinopril 10 MG tablet 10 mg PO DAILY RF: 0 lorazepam 1 MG tablet 1 mg PO PRN PRN (Reason: Anxiety) RF: 0 sertraline 50 MG tablet 50 mg PO DAILY RF: 0 nitrofurantoin monohyd/m-cryst 100 MG capsule 100 mg PO DAILY RF: 0 aspirin 81 mg Tablet 81 mg PO DAILY RF: 0 Primary Care Provider: Binta Farah Referrals: Binta Farah MD [Primary Care Provider] - As Needed Disposition Disposition: Home, self care Discharge Date/Time: 08/15/20 19:44
--- NOTE | 2020-08-15 17:19 | EKG12_ITS ---
Test Reason : Blood Pressure : / mmHG Vent. Rate : 080 BPM Atrial Rate : 080 BPM P-R Int : 194 ms QRS Dur : 074 ms QT Int : 368 ms P-R-T Axes : 047 -06 035 degrees QTc Int : 424 ms Normal sinus rhythm Normal ECG Confirmed by VIJAY SYED, CRISTY ([id number]), fan mail editor NATANAEL BILLINGS ([id number]) on 08/18/2020 1:01:54 PM Referred By: ARTURO Confirmed By:CRISTY LINARES MD
--- NOTE | 2020-08-15 17:20 | CT_ITS ---
STUDY: CTA CHEST REASON FOR EXAM: Female, 65 years old. chest pain, elevated d-dimer, htn RADIATION DOSAGE (If Supplied By Facility): CTDIvol = ( 12.66 ) mGy, DLP = ( 436.56 ) mGycm TECHNIQUE: The examination was performed with the intravenous administration of IV 100mL Isovue-370. Post-processing of the angiographic images was performed, with multiplanar reformation and 3D reconstruction. Individualized dose optimization techniques were used for this CT. COMPARISON: None. FINDINGS: Normal enhancement of the main pulmonary artery and right and left pulmonary arteries. Normal enhancement of the bilateral peripheral pulmonary arteries. There is no demonstrated pulmonary embolism. The ascending aorta measures 4.1 cm in diameter. There is no demonstrated aortic dissection. Normal heart and pericardium. Normal mediastinum. Normal hilar regions. Normal visualized trachea and bronchi. The lungs are well expanded. Mild emphysema is present. There is no consolidation. Normal pleura. Normal chest wall structures. Normal osseous structures. Normal visualized upper abdomen. CT/CTA Chest W/WO Contrast IMPRESSION: No evidence of pulmonary embolism. Mild aneurysmal dilatation of the ascending aorta measuring 4.1 cm in diameter. Mild emphysema. No consolidation. Electronically Signed: Quirino Sims MD at 18:37 EDT Tel , Service support ,
[2020-08-15 17:31] LABS: Absolute Lymphocyte Count 3.54 X10^3/uL (0.83-4.51); Absolute Neutrophil Count 4.3 X10^3/uL (2.0-7.7); Basophil# 0.08 X10^3/uL; Basophil% 0.9 % (0-1); Eosinophil# 0.31 X10^3/uL; Eosinophils% 3.4 % (0-5); Hematocrit 44.2 % (37-47); Hemoglobin 14.2 g/dL (12.0-15.0); Lymphocyte # 3.54 X10^3/ul (0.83-4.51); Lymphocyte % 38.5 % (19-41); Mean Corp Hgb Conc 32.1 g/dL (32-36); Mean Corpuscular Hgb 29.9 pg (27.0-32.0); Mean Corpuscular Volume 93.1 fL (81-99); Monocyte# 0.95 X10^3/uL; Monocyte% 10.3 % (0-10); NRBC Flagged by Analyzer 0 % (0-5); Neutrophil # 4.29 X10^3/uL (2.7-7.7); Neutrophil % 46.7 % (47-70); Platelet Count 176 K/mm3 (150-450); RBC Distribution Width CV 12.7 % (11.6-14.6); RBC Distribution Width SD 43.6 fl (35.1-43.9); Red Blood Count 4.75 M/mm3 (4.2-5.4); White Blood Count 9.2 K/mm3 (4.4-11.0)
[2020-08-15] MEDS: 0.9% Normal Saline 1,000 ML 1000 ML IV (17:33)
[2020-08-15 17:45] LABS: Anion Gap 4 (5-15); BUN 17 mg/dL (7-18); BUN/Creat Ratio 17.1 RATIO (10-20); Chloride 106 mmol/L (98-107); Creatinine, Serum 0.99 mg/dL (0.55-1.02); EST Glomerular Filtration Rate 59 mL/min (>60); Est Glom Filt Rate - Afr Amer 72 mL/min (>60); Estimated Creatinine Clearance 47.62 ml/min; Glucose 105 mg/dL (74-106); Potassium 4.2 mmol/L (3.5-5.1); Sodium Level 141 mmol/L (136-145)
[2020-08-15 19:05] VITALS: BP 133/82; PULSE 81; RESP 18; O2SAT 97
[2020-08-15 19:44] VITALS: BP 136/82; PULSE 70; RESP 18; O2SAT 96
== END 2020-08-15 19:44 | disposition home or self-care (01) ==
PROVIDERS: Emergency Provider Student in an Organized Health Care Education/Training Program; PCP Internal Medicine
DX: R07.9 Chest pain, unspecified (principal); R06.00 Dyspnea, unspecified; M54.6 Pain in thoracic spine; I71.9 Aortic aneurysm of unspecified site, without rupture; R79.89 Other specified abnormal findings of blood chemistry; I10 Essential (primary) hypertension; F32.9 Major depressive disorder, single episode, unspecified; E66.9 Obesity, unspecified; Z79.82 Long term (current) use of aspirin; Z79.899 Other long term (current) drug therapy; Z87.891 Personal history of nicotine dependence
CPT/HCPCS: 71275; 80048; 84484; 85025; 93005; 96360; 96361; 99284; J7030; Q9967; A4216

== ENCOUNTER 2024-12-25 18:10 | Emergency (ER) | payer MEDICARE, OTHER, SELFPAY ==
[2024-12-25 18:11] VITALS: BP 153/97; PULSE 118; RESP 20; TEMP 36; O2SAT 95
--- NOTE | 2024-12-25 19:09 | RAD_ITS ---
PROCEDURE: HAND MIN 3 VIEWS 12/25/2024 REASON FOR EXAM: BITES TECHNIQUE: Procedure Code: VISHAL Modality: DX Procedure: HAND MIN 3 VIEWS Laterality: FINDINGS: No evidence of acute fracture or dislocation. Moderate degenerative changes of the hand and wrist most pronounced in the 1st carpometacarpal joint. Diffuse osseous demineralization. No radiopaque foreign body. RAD/Hand Min 3 Views IMPRESSION: No acute osseous abnormality. Osteoarthrosis. Reading Location: [id number]
--- NOTE | 2024-12-25 19:09 | RAD_ITS ---
PROCEDURE: HAND MIN 3 VIEWS 12/25/2024 REASON FOR EXAM: BITES TECHNIQUE: Procedure Code: VISHAL Modality: DX Procedure: HAND MIN 3 VIEWS Laterality: FINDINGS: No evidence of acute fracture or dislocation. [id number] degenerative changes of the hand and wrist. No radiopaque foreign body. RAD/Hand Min 3 Views IMPRESSION: No evidence of acute fracture or dislocation. Osteoarthrosis. Reading Location: [id number]
--- NOTE | 2024-12-25 19:09 | RAD_ITS ---
PROCEDURE: ELBOW MIN 3 VIEWS 12/25/2024 REASON FOR EXAM: PAIN SWELLING TECHNIQUE: Procedure Code: RADEL Modality: DX Procedure: ELBOW MIN 3 VIEWS Laterality: FINDINGS: No evidence of acute fracture or dislocation. Moderate degenerative changes of the elbow. No elbow joint effusion. RAD/Elbow min 3 Views IMPRESSION: No acute osseous abnormalities. Reading Location: [id number]
[2024-12-25 20:10] VITALS: BP 134/89; PULSE 86; RESP 18; O2SAT 94
[2024-12-25 20:21] VITALS: BMI 37.0
[2024-12-25] MEDS: Lidocaine 1% (20 ml mdv) 20 ML Vial 10 ML INFILT (20:22)
[2024-12-25 20:48] VITALS: BP 134/89; PULSE 86; RESP 18; TEMP 36; O2SAT 94
--- NOTE | 2024-12-25 23:17 | EDS_ITS ---
HPI History of Present Illness Chief Complaint: Bite Narrative Narrative: Patient is a 69-year-old female presenting to the emergency department after she tried to break her 2 dogs up from a fight. States that she was both bit and scratched by the dogs on her hands and forearms. They are up-to-date on vaccines including rabies vaccine. She is unsure when her last tetanus vaccine was. She states when she was trying to break them up she did fall onto her left elbow which she reports some mild pain. Denies hitting her head, any loss of consciousness, any use of oral anticoagulation, any neck or back pain. Denies any other injuries from the fall. [facility] Medical History Depression Former smoker Hypertension Home Medications ?Medication ?Instructions ?Recorded ?Last Taken ?Type lisinopril 10 mg tablet 10 mg PO DAILY 05/30/18 Unkn own History lorazepam 1 mg tablet 1 mg PO PRN PRN Anxiety 05/12 12/28 Unknown History nitrofurantoin 100 mg PO DAILY 05/30/18 Unk nown History monohydrate/macrocrystals 100 mg capsule sertraline 50 mg tablet 50 mg PO DAILY 05/30/18 Unkn own History aspirin 81 mg tablet 81 mg PO DAILY 08/15/20 Unkn own History amoxicillin 875 mg-potassium 1 tab PO BID 10 days #20 tabs 12/25/24 Unknown Rx clavulanate 125 mg tablet Allergy/AdvReac Type Severity Reaction Status Date / Time No Known Allergies Allergy Verified 12/25/24 18:11 Social History household members: spouse housing: house Smoking Status: Former smoker ROS ROS ED ROS Narrative see HPI EXAM Physical Exam Narrative Exam Narrative: Vital signs: Reviewed General: Alert and orientedx3. No acute distress HEENT: Head is normocephalic and atraumatic, sinuses nontender, pupils equal round and reactive. Nares are patent. Oropharynx and throat exams normal. Neck: Supple without lymphadenopathy nontender. No midline cervical spinal tenderness to palpation. No step offs or deformities. Cardiovascular: Regular rate and rhythm, no murmurs. No rubs or gallops. Normal S1 and S2 Respiratory: Clear to auscultation bilaterally. No wheezes, rales, rhonchi Abdominal: Soft and nontender. Normal bowel sounds. No guarding or rebound. Nonsurgical abdomen Extremities: There is a 2 cm superficial laceration to the right volar third finger along the PIP. No tendon involvement. There is a 1 cm laceration to the right distal index finger on the radial side. 1 cm laceration of the first metacarpal of the first digit. Otherwise scattered abrasions to the hand with some mild bruising mainly to the third finger. ON the left hand there is a 1.5 cm superficial laceration to the base of the radial side of the index finger. Multiple skin tears to the left dorsal forearm. Swelling to the left elbow, no tenderness to palpation. Flexion and extension at all finger joints are intact. Motor and sensation in the radial median and ulnar distributions are intact bilaterally. No FB noted on wound explorations. Extremities are otherwise atraumatic and nontender to palpation with normal active range of motion. Neurological: Cranial nerves II through XII are grossly intact. Normal strength and sensation. Normal cerebellar function The rest of the physical exam is unremarkable Const Vital Signs: 12/25/24 18:11 12/25/24 20:10 12/25/24 20:48 Temperature 96.8 F L 96.8 F L Temperature Source Temporal Pulse Rate 118 H 86 86 Respiratory Rate 20 H 18 18 Blood Pressure 153/97 H 134/89 H 134/89 H Blood Pressure Mean 115 104 104 Pulse Ox 95 94 94 Oxygen Delivery Method Room Air Room Air MDM MDM MDM Narrative Medical decision making narrative: Patient is a 69-year-old female presenting to the emergency department for injuries after trying to break up a dog fight. Patient was seen and examined. Vitals are stable. Patient resting bed comfortably no acute distress. Wounds were copiously irrigated. Patient was given first dose of Augmentin here. Tetanus was updated. The dogs are hers and they are up-to-date on rabies vaccines. x-rays of bilateral hands and left elbow were obtained. X-rays reviewed by myself. No opacity or evidence of foreign body seen. No fractures or dislocations seen. No posterior fat pad on elbow x-ray. Radiology read with negative findings as well. The 2 cm laceration on the patient's third right digit was loosely repaired with 2 4-0 Ethilon sutures after local injection of 1% lidocaine. The 1.5 cm laceration at the base of the first digit on the left hand was loosely repaired with 1 4-0 Ethilon suture after local injection of 1%lidocaine. Patient was given strict wound care instructions including keeping the wounds clean and dry. Watching for signs of infection including redness, drainage or warmth. Instructed to have the sutures removed in 7 to 10 days. Instructed to take the antibiotics as prescribed. Patient discharged from the Emergency Department. I do not feel that the patient's evaluation reveals any acute reason for admission at this time. I instructed them to either follow-up with their primary care physician or promptly return to the Emergency Department for reevaluation should symptoms worsen or new symptoms develop. I explained what symptoms would indicate the need to return to the emergency department. isadora decision making was used. The patient voiced understanding of the treatment plan and is agreeable with it. Clinical impression Dog bite Extremity laceration Fall Left elbow pain History & Record Review Discussion w/independent historian: Patient Radiography Diagnostic Testing: Clinical Impression(s) from Imaging Studies Elbow X-Ray 12/25/24 19:09 IMPRESSION: No acute osseous abnormalities. Reading Location: [facility] Hand X-Ray 12/25/24 19:09 IMPRESSION: No acute osseous abnormality. Osteoarthrosis. Reading Location: [facility] Hand X-Ray 12/25/24 19:09 IMPRESSION: No evidence of acute fracture or dislocation. Osteoarthrosis. Reading Location: [facility] Discharge Plan Triage Chief Complaint: Bite ED Provider: Daylin Jerez Dx/Rx/DC Orders Clinical Impression: Dog bite of extremity Instructions: ED Dog Bite Prescriptions: New amoxicillin-pot clavulanate 875-125 mg tablet 1 tab PO BID 10 Days Qty: 20 0RF No Action lisinopril 10 MG tablet 10 mg PO DAILY lorazepam 1 MG tablet 1 mg PO PRN PRN (Reason: Anxiety) sertraline 50 MG tablet 50 mg PO DAILY nitrofurantoin monohyd/m-cryst 100 MG capsule 100 mg PO DAILY aspirin 81 mg Tablet 81 mg PO DAILY Primary Care Provider: Binta Farah Referrals: Binta Farah MD [Primary Care Provider] - Activity Restrictions/Additional Instructions: Take the antibiotic twice a day for 10 days. Keep the wounds clean and dry. Watch for signs of infection which include redness, drainage, warmth. Return to the ED immediately with these. You need to have the sutures removed in 7 to 10 days. Your evaluation in the Emergency Department did not reveal any acute reason for admission. However, I want to emphasize that you may be early in the course of a disease process or illness even if it is not present. For this reason you should follow-up within 24 hours for reevaluation with either your primary care physician or if necessary back here in the Emergency Department. You should return to the Emergency Department immediately if your symptoms worsen or new symptoms develop. Print Language: [place] Disposition Disposition: Home, Self Care Discharge Date/Time: 12/25/24 20:51
== END 2024-12-25 20:51 | disposition home or self-care (01) ==
PROVIDERS: Emergency Provider Student in an Organized Health Care Education/Training Program; PCP Internal Medicine; Visit Provider Student in an Organized Health Care Education/Training Program
DX: S61.412A Laceration without foreign body of left hand, initial encounter (principal); S61.212A Laceration without foreign body of right middle finger without damage to nail, initial encounter; S61.451A Open bite of right hand, initial encounter; S61.452A Open bite of left hand, initial encounter; M25.522 Pain in left elbow; Z87.891 Personal history of nicotine dependence; X58.XXXA Exposure to other specified factors, initial encounter
CPT/HCPCS: 12001; 73080; 73130; 90715; 99283